=== PATIENT | female | born 1960 | race Caucasian/White ===

== ENCOUNTER 2016-09-29 19:10 | Emergency (ER) | payer BC ==
[2016-09-29 19:29] VITALS: BP 153/75; PULSE 84; TEMP 97.9; BMI 33.3
[2016-09-29] MEDS ORDERED: INDOMETHACIN 50 MG CAPSULE PO ONE (20:56)
[2016-09-29] MEDS ORDERED: ALLOPURINOL 300 MG TABLET (FP) PO ONE (20:57)
--- NOTE | 2016-09-29 20:57 | PDOC ---
History of Present Illness - History of Present Illness Initial Comments: 09/29/16 21:31 Patient is a 56 year old female with significant medical hx of gout who is presenting to the ED for gout pain. Patient is complaining of severe pain to her right ankle and is requesting pain relief. She does not offer any other complaints. Denies lower extremity swelling. 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 <Chloe Nguyen - Last Filed: 09/29/16 21:30> <Cindy Tyson - Last Filed: 09/30/16 00:40> - General Chief Complaint: Pain Stated Complaint: GOUT PAIN Time Seen by Provider: 09/29/16 20:25 Past History <Chloe Nguyen - Last Filed: 09/29/16 21:30> - Past Medical History Cardiac Disorders: Yes (AAA repair, Aorti valve replacement) HTN: Yes - Surgical History Abdominal Surgery: Yes Cardiac Surgery: Yes (ANEURYSM REPAIR, VALVE REPLACEMENT) - Immunization History Immunization Up to Date: Yes - Psycho/Social/Smoking Cessation Hx Anxiety: No Suicidal Ideation: No Smoking Status: No Smoking History: Never smoked Have you smoked in the past 12 months: No Number of Cigarettes Smoked Daily: 0 Cigars Per Day: 0 Hx Alcohol Use: No Drug/Substance Use Hx: No Substance Use Type: None Hx Substance Use Treatment: No <Cindy Tyson - Last Filed: 09/30/16 00:40> - Past Medical History Allergies/Adverse Reactions: Allergies Allergy/AdvReac Type Severity Reaction Status Date / Time No Known Allergies Allergy Verified 09/29/16 19:29 Home Medications: Ambulatory Orders Warfarin Sodium [Coumadin] 4 mg PO HS 03/02/16 Allopurinol [Zyloprim -] 200 mg PO DAILY #60 tablet 09/29/16 Review of Systems - Review of Systems Comments:: 09/29/16 21:33 CONSTITUTIONAL: Absent: fever, chills, diaphoresis, generalized weakness, malaise, loss of appetite HEENT: Absent: rhinorrhea, nasal congestion, throat pain, throat swelling, difficulty swallowing, mouth swelling, ear pain, eye pain, visual changes CARDIOVASCULAR: Absent: chest pain, syncope, palpitations, irregular heart rate, lightheadedness , peripheral edema RESPIRATORY: Absent: cough, shortness of breath, dyspnea with exertion, orthopnea, wheezing, stridor, hemoptysis GASTROINTESTINAL: Absent: abdominal pain, abdominal distension, nausea, vomiting, diarrhea, constipation, melena, hematochezia GENITOURINARY: Absent: dysuria, frequency, urgency, hesitancy, hematuria, flank pain, genital pain MUSCULOSKELETAL: Present: right ankle pain Absent: myalgia, arthralgia, joint swelling SKIN: Absent: rash, itching, pallor HEMATOLOGIC/IMMUNOLOGIC: Absent: easy bleeding, easy bruising, lymphadenopathy, frequent infections ENDOCRINE: Absent: unexplained weight gain, unexplained weight loss, heat intolerance, cold intolerance NEUROLOGIC: Absent: headache, focal weakness or paresthesia, dizziness, unsteady gait, seizure, mental status changes, bladder or bowel incontinence. PSYCHIATRIC: Absent: anxiety, depression, suicidal or homicidal ideation, hallucinations <Chloe Nguyen - Last Filed: 09/29/16 21:30> *Physical Exam - Vital Signs Last Vital Signs Temp Pulse Resp BP Pulse Ox 97.9 F 84 18 153/75 99 09/29/16 19:26 09/29/16 19:26 09/29/16 19:26 09/29/16 19:26 09/29/16 19:26 - Physical Exam Comments: 09/29/16 21:34 GENERAL: Well developed, well nourished. Awake and alert. No acute distress. HEENT: Normocephalic, atraumatic. PERRLA, EOMI. No conjunctival pallor. Sclera are non- icteric. Moist mucous membranes. Oropharynx is clear. NECK: Supple. Full ROM. No JVD. Carotid pulses 2+ and symmetric, without bruits. No thyromegaly. No lymphadenopathy. CARDIOVASCULAR: Mechanical valve click. Regular rate and rhythm. No murmurs, rubs, or gallops. Distal pulses are 2+ and symmetric. PULMONARY: No evidence of respiratory distress. Lungs clear to auscultation bilaterally. No wheezing, rales or rhonchi. ABDOMINAL: Soft. Non-tender. Non-distended. No rebound or guarding. No organomegaly. Normoactive bowel sounds. MUSCULOSKELETAL: Normal range of motion at all joints. No bony deformities or tenderness. No CVA tenderness. EXTREMITIES: No cyanosis. No clubbing. No edema. No calf tenderness. SKIN: Warm and dry. Normal capillary refill. No rashes. No jaundice. NEUROLOGICAL: Alert, awake, appropriate. Cranial nerves 2-12 intact. Normal speech. Gait is normal without ataxia. PSYCHIATRIC: Cooperative. Good eye contact. Appropriate mood and affect. <Chloe Nguyen - Last Filed: 09/29/16 21:30> - Vital Signs Last Vital Signs Temp Pulse Resp BP Pulse Ox 97.9 F 84 18 153/75 99 09/29/16 19:26 09/29/16 19:26 09/29/16 19:26 09/29/16 19:26 09/29/16 19:26 <Cindy Tyson - Last Filed: 09/30/16 00:40> ED Treatment Course - Medications Given in the ED: ED Medications Discontinued Medications Generic Name Dose Route Start Last Admin Trade Name Mehranq PRN Reason Stop Dose Admin Allopurinol 300 mg 09/29/16 20:57 09/29/16 21:11 Zyloprim - PO 09/29/16 20:58 300 mg ONCE ONE Administration Indomethacin 50 mg 09/29/16 20:56 09/29/16 21:02 Indocin - PO 09/29/16 20:57 Not Given ONCE ONE Oxycodone/Acetaminophen 2 combo 09/29/16 20:59 09/29/16 21:11 Percocet 5/325 - PO 09/29/16 21:00 2 combo ONCE ONE Administration <Chloe Nguyen - Last Filed: 09/29/16 21:30> Medical Decision Making - Medical Decision Making 09/30/16 00:39 Pt comes with murraysandro; 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 SHe is on coumadin for a mechanical heart valve, and cannot be sent home with indocin. I will teat her with percocet here and tylenol and allopurinol at home. SHe can follow with her pMD <Cindy Tyson - Last Filed: 09/30/16 00:40> *DC/Admit/Observation/Transfer - Attestations Scribe Attestion: 09/29/16 21:36 Documentation prepared by Chloe Nguyen, acting as medical staff specialist for Cindy Tyson MD. <Chloe Nguyen - Last Filed: 09/29/16 21:30> <Cindy Tyson - Last Filed: 09/30/16 00:40> Diagnosis at time of Disposition: Gout - Discharge Dispostion Disposition: HOME Condition at time of disposition: Stable - Prescriptions Prescriptions: Allopurinol [Zyloprim -] 200 mg PO DAILY #60 tablet - Referrals Referrals: Jaqueline Powell [Primary Care Provider] - - Patient Instructions Printed Discharge Instructions: Gout - Post Discharge Activity Work/School Note: Back to Work
[2016-09-29] MEDS ORDERED: OXYCODONE/APAP 5/325MG COMBO TABLET PO ONE (20:59)
[2016-09-29] MEDS ORDERED: ALLOPURINOL 100 MG TABLET (FP) ONE (21:03)
[2016-09-29] MEDS ORDERED: OXYCODONE/APAP 5/325MG COMBO TABLET ONE (21:03)
== END 2016-09-29 21:32 | disposition home or self-care (01) ==
LOC: JER 19:10
DX: M10.9 Gout, unspecified (principal); I10 Essential (primary) hypertension; Z95.4 Presence of other heart-valve replacement; Z79.01 Long term (current) use of anticoagulants
CPT/HCPCS: 99282-25

== ENCOUNTER 2016-12-30 09:30 | Inpatient (IN) | payer BC ==
[2016-12-30 09:36] VITALS: BMI 34.3
[2016-12-30] MEDS ORDERED: morphine CARPU-JECT 4 MG/1 ML DISP.SYRIN IVPUSH ONE ×2 (09:59→15:57)
[2016-12-30] MEDS ORDERED: SODIUM CHLORIDE 1,000 ML IV STA (09:59)
[2016-12-30] MEDS ORDERED: ONDANSETRON 4 MG/2 ML VIAL IVPB ONE (09:59)
--- NOTE | 2016-12-30 09:59 | PDOC ---
History of Present Illness - General History Source: Patient Exam Limitations: No Limitations - History of Present Illness Initial Comments: 12/30/16 10:01 The patient is a 56 year old female with a significant past medical history of gout, thoracic aneurysm repair, aortic valve replacement who presents to the Emergency Department with RUQ pain since last night. She reports associated episodes of vomiting and diarrhea. She also reports the pain radiates to her back and right shoulder. She states the pain was intermittent initially, but now reports constant pain. She reports the pain is worse post-prandially. She also reports an episode of hematuria a few days ago. She denies sick contacts. She denies recent travel. She denies alcohol, tobacco, or drug use. The patient denies chest pain, shortness of breath, palpitations, headache and dizziness. The patient denies fever, chills, and constipation. The patient denies dysuria, frequency, urgency. PCP: Dr. Jaqueline Powell Curer Acid Drum: Dr. Yara Garner <Regina Nathan - Last Filed: 12/30/16 12:24> - General History Source: Patient, Old Records Exam Limitations: No Limitations <Monster Kemp - Last Filed: 12/30/16 14:35> - General Chief Complaint: Pain Stated Complaint: ABD PAIN, SHOULDER PAIN Time Seen by Provider: 12/30/16 09:38 Past History <Regina Nathan - Last Filed: 12/30/16 12:24> - Past Medical History Cardiac Disorders: Yes (AAA repair, Aorti valve replacement) HTN: Yes - Surgical History Abdominal Surgery: Yes Cardiac Surgery: Yes (ANEURYSM REPAIR, VALVE REPLACEMENT) - Immunization History Immunization Up to Date: Yes - Psycho/Social/Smoking Cessation Hx Anxiety: No Suicidal Ideation: No Smoking Status: No Smoking History: Never smoked Have you smoked in the past 12 months: No Number of Cigarettes Smoked Daily: 0 Cigars Per Day: 0 Information on smoking cessation initiated: No Hx Alcohol Use: No Drug/Substance Use Hx: No Substance Use Type: None Hx Substance Use Treatment: No <Monster Kemp - Last Filed: 12/30/16 14:35> - Past Medical History Allergies/Adverse Reactions: Allergies Allergy/AdvReac Type Severity Reaction Status Date / Time No Known Allergies Allergy Verified 12/30/16 09:36 Home Medications: Ambulatory Orders Warfarin Sodium [Coumadin] 4 mg PO HS 03/02/16 Famotidine [Pepcid] 20 mg PO BID PRN #14 tablet 12/30/16 Mag Hydrox/Al Hydrox/Simeth [Mylanta Suspension -] 30 ml PO Q6H PRN #1 bottle Review of Systems - Review of Systems Able to Perform ROS?: Yes Comments:: 12/30/16 10:01 GENERAL/CONSTITUTIONAL: No fever or chills. No weakness. HEAD, EYES, EARS, NOSE AND THROAT: No change in vision. No ear pain or discharge. No sore throat. CARDIOVASCULAR: No chest pain or shortness of breath. RESPIRATORY: No cough, wheezing, or hemoptysis. GASTROINTESTINAL: (+) RUQ pain, nausea, vomiting, diarrhea. No constipation GENITOURINARY: (+) hematuria. No dysuria, frequency. MUSCULOSKELETAL: (+) back pain, right shoulder pain. No muscle swelling or pain. No neck pain. SKIN: No rash NEUROLOGIC: No headache, vertigo, loss of consciousness, or change in strength/ sensation. ENDOCRINE: No increased thirst. No abnormal weight change. HEMATOLOGIC/LYMPHATIC: No anemia, easy bleeding, or history of blood clots. ALLERGIC/IMMUNOLOGIC: No hives or skin allergy. <Regina Nathan - Last Filed: 12/30/16 12:24> *Physical Exam - Vital Signs Last Vital Signs Temp Pulse Resp BP Pulse Ox 98.1 F 87 18 157/83 98 12/30/16 09:33 12/30/16 09:33 12/30/16 09:33 12/30/16 09:33 12/30/16 09:33 - Physical Exam Comments: 12/30/16 10:01 GENERAL: Awake, alert, and fully oriented, in no acute distress HEAD: No signs of trauma EYES: PERRLA, EOMI, sclera anicteric, conjunctiva clear ENT: Auricles normal inspection, hearing grossly normal, nares patent, oropharynx clear without exudates. Moist mucosa NECK: Normal ROM, supple, no lymphadenopathy, JVD, or masses LUNGS: Breath sounds equal, clear to auscultation bilaterally. No wheezes, and no crackles HEART: Regular rate and rhythm, normal S1 and S2, no murmurs, rubs or gallops ABDOMEN: Right CVA tenderness, RUQ tenderness, Meridian sign positive. Soft, nontender, normoactive bowel sounds. No guarding, no rebound. No masses EXTREMITIES: Normal range of motion, no edema. No clubbing or cyanosis. No cords, erythema, or tenderness NEUROLOGICAL: Cranial nerves II through XII grossly intact. Normal speech, normal gait SKIN: Warm, Dry, normal turgor, no rashes or lesions noted. <Regina Nathan - Last Filed: 12/30/16 12:24> - Vital Signs Last Vital Signs Temp Pulse Resp BP Pulse Ox 98.1 F 87 18 157/83 98 12/30/16 09:33 12/30/16 09:33 12/30/16 09:33 12/30/16 09:33 12/30/16 09:33 <Monster Kemp - Last Filed: 12/30/16 14:35> Heart Score/ECG Review #1 ECG reviewed & interpreted by me at: 12:35 12/30/16 12:43 NSR 74, LAFB, Q wave V1-V2, no std/enid, left axis, QTC 479 msec <Monster Kemp - Last Filed: 12/30/16 14:35> ED Treatment Course - LABORATORY CBC & Chemistry Diagram: 12/30/16 10:30 12/30/16 10:30 - RADIOLOGY Radiograph Interpretation: 12/30/16 11:41 Abdominal US: Reported by: Dr. Yaya Wyman Impression: Mildly enlarged fatty liver 12/30/16 12:[address]: Reported by: Dr. Todd Negron Impression: No specific etiology for right flank pain identified. There is a fatty liver with pericholecystic sparing. The appendix is not seen, but there are no inflammatory changes in the right lower quadrant. Clinical correlation is advised. <Regina Nathan - Last Filed: 12/30/16 12:24> - LABORATORY CBC & Chemistry Diagram: 12/30/16 10:30 12/30/16 10:30 - RADIOLOGY Radiology Studies Ordered: Category Date Time Status SPIRAL- RENAL-STONE CT [CT] Stat CT Scan 12/30/16 09:46 Ordered ABDOMEN US -LIMITED [US] Stat Ultrasound 12/30/16 09:46 Ordered <Monster Kemp - Last Filed: 12/30/16 14:35> Medical Decision Making - Medical Decision Making 12/30/16 09:52 A portion of this note was documented by scribe services under my direction. I have reviewed the details of the note, within reason, and agree with the documentation with the following case summary and management plan written by me. Patient treated in the ED. Nursing notes are reviewed and incorporated into the medical decision-making. Vital signs reviewed. Peripheral IV access obtained by the nurse, laboratory studies are drawn and sent, reviewed and interpreted by myself. Vital Signs Temp Pulse Resp BP Pulse Ox 98.1 F 87 18 157/83 98 12/30/16 09:33 12/30/16 09:33 12/30/16 09:33 12/30/16 09:33 12/30/16 09:33 56-year-old female with past medical history of thoracic aneurysm status post surgery and graft, Aortic valve replacement metallic on Coumadin presents with abdominal pain radiating to the right shoulder since yesterday. Reported is intermittent, heart to describe and now constant. Reports that eating worsens the pain. Patient reports right CVA tenderness and right upper quadrant pain. Has no history of gallstones. Reported one episode of vomiting today. Denies fevers, sick contacts or recent travels. Endorse some loose stooling. Differential includes biliary pathology, gastroenteritis, pancreatitis, polynephritis, renal colic. We'll obtain blood work including labs, ultrasound, spiral CT and reassess. 12/30/16 13:05 CBC, BMP 12/30/16 10:30 12/30/16 10:30 CMP Sodium 141 mmol/L (136-145) 12/30/16 10:30 Potassium 4.4 mmol/L (3.5-5.1) 12/30/16 10:30 Chloride 105 mmol/L (98-107) 12/30/16 10:30 Carbon Dioxide 29 mmol/L (21-32) 12/30/16 10:30 Anion Gap 7 (8-16) L 12/30/16 10:30 BUN 14 mg/dL (7-18) D 12/30/16 10:30 Creatinine 0.8 mg/dL (0.55-1.02) 12/30/16 10:30 Creat Clearance w eGFR > 60 (>60) 12/30/16 10:30 Random Glucose 86 mg/dL (74-106) 12/30/16 10:30 Calcium 9.0 mg/dL (8.5-10.1) 12/30/16 10:30 Total Bilirubin 0.8 mg/dL (0.2-1.0) 12/30/16 10:30 AST 18 U/L (15-37) D 12/30/16 10:30 ALT 44 U/L (12-78) 12/30/16 10:30 Alkaline Phosphatase 81 U/L (45-117) 12/30/16 10:30 Creatine Kinase 78 IU/L (26-192) 12/30/16 10:30 Troponin I < 0.02 ng/ml (0.00-0.05) 12/30/16 10:30 Total Protein 6.9 g/dl (6.4-8.2) 12/30/16 10:30 Albumin 3.6 g/dl (3.4-5.0) 12/30/16 10:30 Lipase 128 U/L (73-393) 12/30/16 10:30 Urine Test Results Urine Color Ltyellow 12/30/16 12:14 Urine Appearance Clear 12/30/16 12:14 Urine pH 5.0 (5.0-8.0) 12/30/16 12:14 Ur Specific [place] 1.012 (1.001-1.035) 12/30/16 12:14 Urine Protein Negative (NEGATIVE) 12/30/16 12:14 Urine Glucose (UA) Negative (NEGATIVE) 12/30/16 12:14 Urine Ketones Negative (NEGATIVE) 12/30/16 12:14 Urine Blood Negative (NEGATIVE) 12/30/16 12:14 Urine Nitrite Negative (NEGATIVE) 12/30/16 12:14 Urine Bilirubin Negative (NEGATIVE) 12/30/16 12:14 Ur Leukocyte Esterase Negative (NEGATIVE) 12/30/16 12:14 CAT scan the abdomen pelvis reviewed. There are no acute findings Ultrasound reviewed. No acute cholecystitis or biliary colic. Patient reports that she had similar pains like this before in the past. However , she has no known etiology at this time. Patient supposed to follow up with the GI doctor but has not been able to get. We'll treat his gastritis at the moment. The patient is noted to have an INR 1.77. Pt's is analyst was contacted Dr. Garner. Pt started on lovenox and will be admitted to the hospital. According to Dr. Garner, there appears to be an abnormal echo. Will need further investigation inpatient. 12/30/16 14:[address] Hogue. He accepts patient to telemetry admission. Case discussed in detail with admitting physician including history, physical exam and ancillary studies. Admitting physician has assumed care for the patient, will follow all pending diagnostics and will complete the evaluation and treatment. 12/30/16 14:35 <Monster Kemp - Last Filed: 12/30/16 14:35> *DC/Admit/Observation/Transfer - Attestations Scribe Attestion: 12/30/16 10:01 Documentation prepared by Regina Nathan, acting as medical registrar for Monster Kemp MD. <Regina Nathan - Last Filed: 12/30/16 12:24> - Discharge Dispostion Admit: No <Monster Kemp - Last Filed: 12/30/16 14:35> Diagnosis at time of Disposition: Subtherapeutic international normalized ratio (INR) Abdominal pain Qualifiers: Abdominal location: unspecified location Qualified Code(s): R10.9 - Unspecified abdominal pain - Discharge Dispostion Condition at time of disposition: Stable - Prescriptions Prescriptions: Mag Hydrox/Al Hydrox/Simeth [Mylanta Suspension -] 30 ml PO Q6H PRN #1 bottle PRN Reason: Abdominal Pain Famotidine [Pepcid] 20 mg PO BID PRN #14 tablet PRN Reason: Abdominal Pain - Referrals Referrals: Ronnell Horton MD [Staff Physician] - Alena Back MD [Staff Physician] - Lloyd Funk DO [Staff Physician] - Florentino He MD [Staff Physician] - - Patient Instructions Printed Discharge Instructions: DI for Abdominal Pain-Adult, DI for Gastritis Additional Instructions: Please take 30 mL of Maalox every 6 hours needed for abdominal pain. Please take 29 as a pest every 12 hours as needed. For your INR, please take some 7.5 mg of Coumadin tonight and call your doctor for potential changes in your dosing. Please make an appointment with a GI physician.
[2016-12-30 10:42] LABS: BASOPHIL 1.1 % (0-2.0); EOSINOPHIL 1.4 % (0-4.5); MCH 27.9 pg (25.7-33.7); MCHC 33.5 g/dl (32.0-36.0); MEAN CELL VOLUME 83.2 fl (80-96); MEAN PLT VOLUME 7.9 fl (7.5-11.1); NEUTROPHILS 69.3 % (42.8-82.8); PLATELET COUNT 328 K/MM3 (134-434); WHITE BLOOD COUNT 8.2 K/mm3 (4.0-10.0)
[2016-12-30 10:56] LABS: INR 1.77 (0.82-1.09); PROTHROMBIN TIME (PATIENT) 19.7 SEC (9.98-11.88)
[2016-12-30 10:59] LABS: ACTIVATED PTT 45.2 SECONDS (26.9-34.4)
[2016-12-30 11:03] LABS: ALBUMIN 3.6 g/dl (3.4-5.0); ANION GAP 7 (8-16); CO2 29 mmol/L (21-32); COCKROFT - GAULT 113.7895; CREATININE 0.8 mg/dL (0.55-1.02); GLUCOSE,RANDOM 86 mg/dL (74-106); SGOT/AST 18 U/L (15-37); SGPT/ALT 44 U/L (12-78)
[2016-12-30 11:07] LABS: ALK PHOS 81 U/L (45-117); BILIRUBIN,TOTAL 0.8 mg/dL (0.2-1.0); TOT PROT 6.9 g/dl (6.4-8.2); TROPONIN I < 0.02 ng/ml (0.00-0.05)
[2016-12-30] MEDS ORDERED: morphine CARPU-JECT 4 MG/1 ML DISP.SYRIN ONE ×2 (11:51→16:16)
[2016-12-30] MEDS ORDERED: ONDANSETRON 4 MG/2 ML VIAL ONE (11:52)
[2016-12-30 12:35] LABS: URINE APPEARANCE CLEAR; URINE BILIRUBIN NEGATIVE (NEGATIVE); URINE BLOOD NEGATIVE (NEGATIVE); URINE COLOR LTYELLOW; URINE GLUCOSE (UA) NEGATIVE (NEGATIVE); URINE KETONE NEGATIVE (NEGATIVE); URINE LEUK ESTERASE NEGATIVE (NEGATIVE); URINE NITRITE NEGATIVE (NEGATIVE); URINE PROTEIN NEGATIVE (NEGATIVE); URINE UROBILINOGEN NEGATIVE E.U./dl (0.2-1.0)
[2016-12-30] MEDS ORDERED: MAG HYDROX/AL HYDROX/SIMETH 30 ML UNIT-DOSE CUP PO ONE (12:36)
[2016-12-30] MEDS ORDERED: FAMOTIDINE 20 MG/50 ML IVPB 50 ML IVPB ONE ×2 (12:36→12:52)
[2016-12-30] MEDS ORDERED: MAG HYDROX/AL HYDROX/SIMETH 30 ML UNIT-DOSE CUP ONE (12:51)
[2016-12-30] MEDS ORDERED: ENOXAPARIN NA (PORCINE) 80 MG/0.8 ML DISP.SYRIN SQ SCH (14:15)
[2016-12-30] MEDS ORDERED: ENOXAPARIN NA (PORCINE) 80 MG/0.8 ML DISP.SYRIN SQ ONE (14:20)
--- NOTE | 2016-12-30 15:03 | EKG ---
Test Reason : Blood Pressure : / mmHG Vent. Rate : 074 BPM Atrial Rate : 074 BPM P-R Int : 170 ms QRS Dur : 090 ms QT Int : 432 ms P-R-T Axes : 005 -47 002 degrees QTc Int : 479 ms NORMAL SINUS RHYTHM LEFT ANTERIOR FASCICULAR BLOCK SEPTAL INFARCT (CITED ON OR BEFORE 30-DEC-2016) ABNORMAL ECG WHEN COMPARED WITH ECG OF 21-OCT-2014 08:43, NO SIGNIFICANT CHANGE WAS FOUND Confirmed by RIMMA GARBER MD ([id number]) on 12/30/2016 3:03:19 PM Referred By: Confirmed By:RIMMA GARBER MD
[2016-12-30] MEDS ORDERED: ACETAMINOPHEN 325 MG TABLET (FP) PO PRN (17:38)
[2016-12-30] MEDS ORDERED: ONDANSETRON *ODT* 4 MG TABLET SL PRN (17:38)
--- NOTE | 2016-12-30 19:04 | CON.CARD ---
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 Echo showed aortic regurgitation and had plan to schedule [facility] for further evaluation. Also had been complaining of chest discomfort and palpitations with plan for event monitor and coronary/aortic CTA at [facility] [place]. Now with separate severe abdominal discomfort x 1 day, constant but intermittently worse. radiates to back. . + nausea, ? diarrhea. palps chronic intermittent. le edema stable, improved. no recent cp, sob, orthopnea, pnd, bleeding, transient neurologic symptoms. PMhx/PSHx: per hpi family hx: mother with AVR repair and aneurysm. from fatal [place]/sc[place] 60's social hx: never smoker, no etoh or illicits. Ambulatory Orders Warfarin Sodium [Coumadin] 4 mg PO HS 03/02/16 Famotidine [Pepcid] 20 mg PO BID PRN #14 tablet 12/30/16 Mag Hydrox/Al Hydrox/Simeth [Mylanta Suspension -] 30 ml PO Q6H PRN #1 bottle Current Medications Acetaminophen (Tylenol -) 650 mg PO Q6H PRN PRN Reason: FEVER OR PAIN Morphine Sulfate (Morphine Injection -) 4 mg IVPUSH Q6H PRN PRN Reason: PAIN Ondansetron HCl (Zofran Odt -) 4 mg SL Q6H PRN PRN Reason: NAUSEA AND/OR VOMITING Ranitidine HCl (Zantac -) 150 mg PO DAILY [facility] Vital Signs - 24 hr 12/30/16 12/30/16 12/30/16 09:33 14:45 17:36 Temperature 98.1 F 97.7 F 98.1 F Pulse Rate 87 86 Pulse Rate [ 65 Apical] Respiratory 18 18 18 Rate Blood Pressure 157/83 119/87 Blood Pressure 158/74 [Left Arm] O2 Sat by Pulse 98 99 98 Oximetry (%) 12/30/16 12/30/16 17:53 18:39 Temperature Pulse Rate Pulse Rate [ 85 Apical] Respiratory 18 18 Rate Blood Pressure Blood Pressure 150/78 [Left Arm] O2 Sat by Pulse 99 98 Oximetry (%) Intake & Output 04/15/17 04/16/17 04/17/17 04/18/17 07:59 07:59 07:59 07:59 Weight 200 lb NAD, calm JVD flat, neck supple CTAB, nl effort rrr nl s1, s2 2/6 sys murmur at usb with mechanical s2 + bs soft nt + tenderness at upper abdomen ext without e/c/c + dp/pt aaox3 CBC, BMP 12/30/16 10:30 12/30/16 10:30 Laboratory Tests 12/30/16 12/30/16 10:30 10:30 INR 1.77 H D Total Bilirubin 0.8 AST 18 D ALT 44 Alkaline Phosphatase 81 Creatine Kinase 78 Troponin I < 0.02 Albumin 3.6 EKG: sr, lad, anterior q waves. non-specific t wave flattining tele: Sr Abdominal imaging notable for mildly enlarged fatty liver. u/s noted visualized abdominal aorta wnl. 56 yo with h/o mechanical Aortic valve replacement for BAV (AR and ), ascending aneurysm repair and possible ASD repair 2001 p/w abdominal pain and noted to have subtherapeutic INR AVR - subtherapeutic INR. lovenox bridge to therapeutic coumadin. - Had plan for [facility] to further evaluate new aortic regurgitation. Will plan for [facility] with bubble study on Friday if still here. Otherwise will do Friday as outpatient. Palps - telemetry monitoring while here. HTN - no history of htn - if remains elevated, will consider starting chlorthalidone - pain control per pmd abdominal sx's - atypical for cardiac symptoms. LFT's not consistent with hepatic congestion. Further work up per pmd.
[2016-12-30] MEDS ORDERED: ONDANSETRON 4 MG TABLET PO PRN (21:16)
[2016-12-30] MEDS: ENOXAPARIN NA (PORCINE) 80 MG/0.8 ML DISP.SYRIN SQ SCH (22:10)
[2016-12-30] MEDS: WARFARIN NA 2 MG TABLET (UD) PO SCH (22:10)
[2016-12-30] MEDS: morphine CARPU-JECT 4 MG/1 ML DISP.SYRIN IVPUSH PRN (22:11)
--- NOTE | 2016-12-30 23:32 | HP ---
Admitting History and Physical - Primary Care Physician PCP: Scott Hogue - Admission Chief Complaint: CHEST PAIN/WORSENING CARDIAC MURMUR/RUQ PAIN History of Present Illness: The patient is a 56 year old female with a significant past medical history of gout, thoracic aneurysm repair, aortic valve replacement who presents to the Emergency Department with RUQ pain since last night. She reports associated episodes of vomiting and diarrhea. She also reports the pain radiates to her back and right shoulder. She states the pain was intermittent initially, but now reports constant pain. She reports the pain is worse post-prandially. She also reports an episode of hematuria a few days ago. She denies sick contacts. She denies recent travel. She denies alcohol, tobacco, or drug use. The patient denies chest pain, shortness of breath, palpitations, headache and dizziness. The patient denies fever, chills, and constipation. The patient denies dysuria, frequency, urgency. History Source: Patient - Past Medical History Cardiovascular: Yes: Aneurysm, HTN, Other (Bicuspid AV s/p Mechanical AVR and aortic aneursym repair 2001 [facility]). No: AFIB, Aortic Insufficiency, Aortic Stenosis, CAD, CHF, Deep Vein Thrombosis, Hyperlipdemia, ME, Mitral Insufficiency, Mitral Stenosis, Murmur, Pulmonary Hypertension ...LMP: 11/14/03 - Past Surgical History Past Surgical History: Yes: Valve Replacement. No: None, AAA Repair, AICD, Amputation, Appendectomy, Arthrosocopy, AV Fistula/Graft, Bariatric Surgery, Breast Biopsy, Bypass, CABG, Carotid Endarterectomy, Cataract Removal, Cholecystectomy, Colectomy, Colonoscopy, Colostomy, Craniotomy, , Cystectomy, Hernia Repair, Hysterectomy, Ileal Conduit, Ileosotomy, Joint Replacement, Kidney Transplant, Laminectomy, Liver Transplant, Mastectomy, Nephrectomy, Oopherectomy, Orchiectomy, Permanent Pacemaker, Prostatectomy, Splenectomy, Stent, Thoracotomy, TURP, Tonsillectomy, Tubal Ligation, Upper Endoscopy, Vasectomy, Vein Stripping/Ligation - Smoking History Smoking history: Never smoked Have you smoked in the past 12 months: No Aproximately how many cigarettes per day: 0 - Alcohol/Substance Use Hx Alcohol Use: No - Social History ADL: Independent History of Recent Travel: No Home Medications - Allergies Allergies/Adverse Reactions: Allergies Allergy/AdvReac Type Severity Reaction Status Date / Time No Known Allergies Allergy Verified 12/30/16 09:36 - Home Medications Home Medications: Ambulatory Orders Warfarin Sodium [Coumadin] 4 mg PO HS 03/02/16 Famotidine [Pepcid] 20 mg PO BID PRN #14 tablet 12/30/16 Mag Hydrox/Al Hydrox/Simeth [Mylanta Suspension -] 30 ml PO Q6H PRN #1 bottle Family Disease History - Family Disease History Family Disease History: Other: Mother (ascending aortic aneurysm) Review of Systems - Review of Systems Constitutional: reports: Weakness Eyes: reports: No Symptoms HENT: reports: No Symptoms Neck: reports: No Symptoms Cardiovascular: reports: Chest Pain, Palpitations, Shortness of Breath Respiratory: reports: No Symptoms Gastrointestinal: reports: Abdominal Pain Genitourinary: reports: No Symptoms Musculoskeletal: reports: No Symptoms Integumentary: reports: No Symptoms Neurological: reports: No Symptoms Endocrine: reports: No Symptoms Hematology/Lymphatic: reports: No Symptoms Psychiatric: reports: No Symptoms Physical Examination Vital Signs: Vital Signs Temperature 98.1 F 12/30/16 17:36 Pulse Rate 85 12/30/16 17:53 Respiratory Rate 18 12/30/16 18:39 Blood Pressure 150/78 12/30/16 17:53 O2 Sat by Pulse Oximetry (%) 98 12/30/16 18:39 Constitutional: Yes: Mild Distress Eyes: Yes: WNL HENT: Yes: WNL Neck: Yes: WNL Cardiovascular: Yes: Pulse Irregular, Murmur Respiratory: Yes: WNL Gastrointestinal: Yes: Tenderness, Other Renal/: Yes: WNL Musculoskeletal: Yes: Muscle Weakness Extremities: Yes: WNL Edema: No Peripheral Pulses WNL: Yes Integumentary: Yes: WNL Wound/Incision: Yes: Clean/Dry Neurological: Yes: WNL ...Motor Strength: WNL Psychiatric: Yes: WNL Problem List - Problems (1) Abdominal pain Code(s): R10.9 - UNSPECIFIED ABDOMINAL PAIN Qualifiers: Abdominal location: unspecified location Qualified Code(s): R10.9 - Unspecified abdominal pain (2) Subtherapeutic international normalized ratio (INR) Code(s): R79.1 - ABNORMAL COAGULATION PROFILE (3) Chest pain Code(s): R07.9 - CHEST PAIN, UNSPECIFIED (4) Cardiac murmur, unspecified Code(s): R01.1 - CARDIAC MURMUR, UNSPECIFIED Assessment/Plan CARDIOLOGY INTERVENTION WITH CITLALY WILL NEED LOVENOX FOR SUBTHERAPEUTIC INR RUQ PAIN WILL NEED GI EVAL JANETTE VU ORDERED CT ABD AND SONO SHOWS FATTY LIVER TELEMETRY MONITORING
[2016-12-31 08:06] LABS: INR 2.16 (0.82-1.09); PROTHROMBIN TIME (PATIENT) 24.1 SEC (9.98-11.88)
[2016-12-31] MEDS ORDERED: RANITIDINE HCL 150 MG TABLET (FP) PO SCH (10:00)
[2016-12-31] MEDS: ENOXAPARIN NA (PORCINE) 80 MG/0.8 ML DISP.SYRIN SQ SCH ×2 (10:15→21:50)
[2016-12-31] MEDS: morphine CARPU-JECT 4 MG/1 ML DISP.SYRIN IVPUSH PRN ×2 (10:24→21:50)
--- NOTE | 2016-12-31 12:36 | PN ---
Progress Note (short form) - Note Progress Note: CC: Abdominal pain S: abdominal pain persists. no cp, sob, dizziness. mild palpitations. Current Medications Acetaminophen (Tylenol -) 650 mg PO Q6H PRN PRN Reason: FEVER OR PAIN Morphine Sulfate (Morphine Injection -) 4 mg IVPUSH Q6H PRN PRN Reason: PAIN Last Admin: 12/31/16 10:24 Dose: 4 mg Ondansetron HCl (Zofran -) 4 mg PO Q6H PRN PRN Reason: NAUSEA AND/OR VOMITING Ranitidine HCl (Zantac -) 150 mg PO DAILY [facility] Last Admin: 12/31/16 10:15 Dose: 150 mg Warfarin Sodium (Coumadin -) 4 mg PO DAILY@1800 [facility] Last Admin: 12/30/16 22:10 Dose: 4 mg lovenox 80 mg BID Vital Signs - 24 hr 12/30/16 12/30/16 12/30/16 14:45 17:36 17:53 Temperature 97.7 F 98.1 F Pulse Rate 86 Pulse Rate [ 65 85 Apical] Respiratory 18 18 18 Rate Blood Pressure 119/87 Blood Pressure 158/74 150/78 [Left Arm] O2 Sat by Pulse 99 98 99 Oximetry (%) 12/30/16 12/30/16 12/31/16 18:39 21:00 02:00 Temperature 97.7 F Pulse Rate 79 Pulse Rate [ Apical] Respiratory 18 18 Rate Blood Pressure 102/62 Blood Pressure [Left Arm] O2 Sat by Pulse 98 96 Oximetry (%) 12/31/16 06:00 Temperature Pulse Rate 66 Pulse Rate [ Apical] Respiratory 20 Rate Blood Pressure 111/61 Blood Pressure [Left Arm] O2 Sat by Pulse Oximetry (%) Intake & Output 12/29/16 12/30/16 12/31/16 01/01/17 07:59 07:59 07:59 07:59 Weight 200 lb NAD, calm JVD flat, neck supple CTAB, nl effort rrr nl s1, s2 2/6 sys murmur at usb with mechanical s2 + bs soft nt + tenderness at upper abdomen ext without e/c/c + dp/pt aaox3 CBC, BMP 12/30/16 10:30 12/30/16 10:30 Laboratory Tests 12/31/16 12/31/16 05:35 05:35 INR 2.16 H C-Reactive Protein 1.9 H EKG: sr, lad, anterior q waves. non-specific t wave flattening tele: Sr, occasional sinus tach Abdominal imaging notable for mildly enlarged fatty liver. u/s noted visualized abdominal aorta wnl. 56 yo with h/o mechanical Aortic valve replacement for BAV (AR and ), ascending aneurysm repair and possible ASD repair 2001 p/w abdominal pain and noted to have subtherapeutic INR AVR - subtherapeutic INR. lovenox bridge to therapeutic coumadin. --> Per patient, INR goal 2.5-3.5. con't lovenox. - Had plan for CITLALY to further evaluate new aortic regurgitation with le edema and progressive interiano. Will plan for CITLALY with bubble study tomorrow. Palps - telemetry monitoring while here. so far benign HTN - initially elevated, today improved. - pain control per pmd abdominal sx's - atypical for cardiac symptoms. LFT's not consistent with hepatic congestion. Normal abdominal aorta on u/s. Eval/mgm't per pmd. GI eval pending.
[2016-12-31] MEDS: WARFARIN NA 2 MG TABLET (UD) PO SCH (17:53)
--- NOTE | 2016-12-31 21:14 | CON.GI ---
Consult Consult Specialty:: GASTROENTEROLOGY Referred by:: CARMELINA LAWRENCE MD Reason for Consultation:: R FLANK PAIN, ENLARGED FATTY LIVER - History of Present Illness Chief Complaint: RIGHT FLANK PAIN TO RIGHT SHOULDER AND RUQ PAIN History of Present Illness: 56 YEAR OLD FEMALE WITH HISTORY OF THORACIC ANEURYSM REPAIR IN [address] [facility] VALVE PLACEMENT FOR BICUSPID AORTIC VALVE ADMITTED WITH WHAT SHE STATES IS SEVERE RIGHT FLANK AND RUQ PAIN THAT RADIATED TO THE RIGHT SHOULDER AND THE RIGHT LOWER ABDOMEN. SHE STATES THAT THIS CAN LAST DAYS ON END. IT IS DESCRIBED STABBING AND AT TIMES COLICKY. SHE HAS A HISTORY OF RENAL STONES. A CT SCAN RENAL PROTOCOL WAS NEGATIVE. SONOGRAM REVEALED ENLARGED LIVER WITH FATTY INFILTRATION. HER LFT'S ARE NORMAL. NO HISTORY OF NSAID USE. NO HISTORY OF PUD. 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 No: AFIB, Aortic Insufficiency, Aortic Stenosis, CAD, CHF, Deep Vein Thrombosis, Hyperlipdemia, ME, Mitral Insufficiency, Mitral Stenosis, Murmur, Pulmonary Hypertension Pulmonary: No: Asthma, Bronchitis, Cancer, COPD, O2 Dependent, Pneumonia, Previously Intubated, Pulmonary Embolus, Pulmonary Fibrosis, Sleep Apnea, Other Gastrointestinal: Yes: Other (POSSIBLE GB DISEASE???) Hepatobiliary: No: Cirrhosis, Cholelithiasis, Cholecystitis, Choledocholithiasis , Hepatitis A, Hepatitis B, Hepatitis C, Other Renal/: No: Renal Failure, Renal Inusuff, BPH, Cancer, Hematuria, Hemodialysis , Neurogenic Bladder, Renal Calculi, UTI, Other Reproductive: No: Ectopic , Endometriosis, Fibroids, PID, Polycystic Ovary Syndrome, Postmenopausal, Other ...LMP: 11/14/03 Heme/Onc: No: Anemia, B12 Deficiency, Bleeding Disorder, Cancer, Current Chemotherapy, Current Radiation Therapy, Hemochromatosis, Hypercoaguable State, Myeloproliferative Synd, Sickle Cell Disease, Sickle Cell Trait, Thrombocytopenia, Other Infectious Disease: No: AIDS, C-Diff, Herpes Zoster, HIV, MRSA, STD's, Tuberculosis, VREF, Other Psych: No: Addictions, Anxiety, Bipolar, Depression, Panic, Psychosis, Schizophrenia, Other Musculoskeletal: No: Bursitis, Chronic low back pain, Hemiparesis, Hemiplegia, Osteoarthritis, Paraplegia, Other Rheumatology: No: Fibromyalgia, Gout, Lupus, Rheumatoid Arthritis, Sarcoidosis, Vasculitis, Other - Past Surgical History Past Surgical History: Yes: Valve Replacement. No: None, AAA Repair, AICD, Amputation, Appendectomy, Arthrosocopy, AV Fistula/Graft, Bariatric Surgery, Breast Biopsy, Bypass, CABG, Carotid Endarterectomy, Cataract Removal, Cholecystectomy, Colectomy, Colonoscopy, Colostomy, Craniotomy, , Cystectomy, Hernia Repair, Hysterectomy, Ileal Conduit, Ileosotomy, Joint Replacement, Kidney Transplant, Laminectomy, Liver Transplant, Mastectomy, Nephrectomy, Oopherectomy, Orchiectomy, Permanent Pacemaker, Prostatectomy, Splenectomy, Stent, Thoracotomy, TURP, Tonsillectomy, Tubal Ligation, Upper Endoscopy, Vasectomy, Vein Stripping/Ligation - Alcohol/Substance Use Hx Alcohol Use: No - Smoking History Smoking history: Never smoked Have you smoked in the past 12 months: No Aproximately how many cigarettes per day: 0 - Social History ADL: Independent History of Recent Travel: No Home Medications - Allergies Allergies/Adverse Reactions: Allergies Allergy/AdvReac Type Severity Reaction Status Date / Time No Known Allergies Allergy Verified 12/30/16 09:36 - Home Medications Home Medications: Ambulatory Orders Warfarin Sodium [Coumadin] 4 mg PO HS 03/02/16 Famotidine [Pepcid] 20 mg PO BID PRN #14 tablet 12/30/16 Mag Hydrox/Al Hydrox/Simeth [Mylanta Suspension -] 30 ml PO Q6H PRN #1 bottle Family Disease History - Family Disease History Family Disease History: Other: Mother (ascending aortic aneurysm) Review of Systems - Review of Systems Constitutional: reports: No Symptoms Eyes: reports: No Symptoms HENT: reports: No Symptoms Neck: reports: No Symptoms Cardiovascular: reports: No Symptoms Respiratory: reports: No Symptoms Gastrointestinal: reports: Abdominal Pain, Other (RIGHT FLANK PAIN, NO CHANGE IN BOWEL HABITS, NO CONSTIPATION) Genitourinary: reports: No Symptoms Musculoskeletal: reports: No Symptoms Integumentary: reports: No Symptoms Neurological: reports: No Symptoms Endocrine: reports: No Symptoms Hematology/Lymphatic: reports: No Symptoms Psychiatric: reports: No Symptoms Physical Exam-GI Vital Signs: Vital Signs Temperature 98.7 F 12/31/16 14:00 Pulse Rate 67 12/31/16 14:00 Respiratory Rate 20 12/31/16 14:00 Blood Pressure 114/61 12/31/16 14:00 O2 Sat by Pulse Oximetry (%) 98 12/31/16 10:00 Constitutional: Yes: Obese Eyes: Yes: Conjunctiva Clear HENT: Yes: Normocephalic Neck: Yes: Supple Cardiovascular: Yes: Regular Rate and Rhythm, Murmur Respiratory: Yes: Regular ...Auscultate: Yes: Normoactive Bowel Sounds ...Palpate: Yes: Soft, Other (RUQ PAIN TO DEEP PALPATION) Genitourinary: Yes: WNL Musculoskeletal: Yes: WNL Extremities: Yes: WNL Neurological: Yes: WNL Psychiatric: Yes: Alert, Oriented Labs: INR, PTT INR 2.16 (0.82-1.09) H 12/31/16 05:35 Laboratory Tests 12/30/16 12/30/16 12/30/16 10:30 10:30 10:30 WBC 8.2 RBC 4.78 Hgb 13.3 Hct 39.7 MCV 83.2 MCHC 33.5 RDW 14.0 Plt Count 328 MPV 7.9 Neutrophils % 69.3 Lymphocytes % 22.0 D Monocytes % 6.2 Eosinophils % 1.4 Basophils % 1.1 D ESR INR 1.77 H D Sodium 141 Potassium 4.4 Chloride 105 Carbon Dioxide 29 Anion Gap 7 L BUN 14 D Creatinine 0.8 Creat Clearance w eGFR > 60 Random Glucose 86 Calcium 9.0 Total Bilirubin 0.8 AST 18 D ALT 44 Alkaline Phosphatase 81 Creatine Kinase 78 Troponin I < 0.02 C-Reactive Protein Total Protein 6.9 Albumin 3.6 Lipase 128 Urine Color Urine Appearance Urine pH Ur Specific [place] Urine Protein Urine Glucose (UA) Urine Ketones Urine Blood Urine Nitrite Urine Bilirubin Urine Urobilinogen Ur Leukocyte Esterase JENNIFER Screen Hepatitis A IgM Ab Hep Bs Antigen Hep B Core IgM Ab Hepatitis C Ab (EIA) 12/30/16 12/31/16 12/31/16 12:14 05:35 05:35 WBC RBC Hgb Hct MCV MCHC RDW Plt Count MPV Neutrophils % Lymphocytes % Monocytes % Eosinophils % Basophils % ESR 16 INR Sodium Potassium Chloride Carbon Dioxide Anion Gap BUN Creatinine Creat Clearance w eGFR Random Glucose Calcium Total Bilirubin AST ALT Alkaline Phosphatase Creatine Kinase Troponin I C-Reactive Protein Total Protein Albumin Lipase Urine Color Ltyellow Urine Appearance Clear Urine pH 5.0 Ur Specific [place] 1.012 Urine Protein Negative Urine Glucose (UA) Negative Urine Ketones Negative Urine Blood Negative Urine Nitrite Negative Urine Bilirubin Negative Urine Urobilinogen Negative Ur Leukocyte Esterase Negative JENNIFER Screen Pending Hepatitis A IgM Ab Pending Hep Bs Antigen Pending Hep B Core IgM Ab Pending Hepatitis C Ab (EIA) Pending 12/31/16 12/31/16 05:35 05:35 WBC RBC Hgb Hct MCV MCHC RDW Plt Count MPV Neutrophils % Lymphocytes % Monocytes % Eosinophils % Basophils % ESR INR 2.16 H Sodium Potassium Chloride Carbon Dioxide Anion Gap BUN Creatinine Creat Clearance w eGFR Random Glucose Calcium Total Bilirubin AST ALT Alkaline Phosphatase Creatine Kinase Troponin I C-Reactive Protein 1.9 H Total Protein Albumin Lipase Urine Color Urine Appearance Urine pH Ur Specific [place] Urine Protein Urine Glucose (UA) Urine Ketones Urine Blood Urine Nitrite Urine Bilirubin Urine Urobilinogen Ur Leukocyte Esterase JENNIFER Screen Hepatitis A IgM Ab Hep Bs Antigen Hep B Core IgM Ab Hepatitis C Ab (EIA) Imaging - Results Cat Scan: Image Reviewed Ultrasound: Image Reviewed Problem List - Problems (1) Right upper quadrant abdominal pain Assessment/Plan: HER SYMPTOMS ARE MULTIPLE AND VAGUE BUT SHE DOES HAVE RUQ PAIN. I WILL ORDER A HIDA SCAN. I DO NOT THINK THE HEPATOMEGALY IS CAUSING RUQ OR RIGHT FLANK PAIN I HAVE ALSO INCREASE HER H2 NATALIE TO BID THIS COULD BE MILD DUODENITIS. IF ALL NEGATIVE I COULD PERFORM AN EGD AN OUTPATIENT Code(s): R10.11 - RIGHT UPPER QUADRANT PAIN (2) Right flank discomfort Code(s): R10.9 - UNSPECIFIED ABDOMINAL PAIN (3) Enlarged liver Assessment/Plan: APPEARS TO BE FAT RELATED AND NOT RIGHT SIDED FAILURE. Code(s): R16.0 - HEPATOMEGALY, NOT ELSEWHERE CLASSIFIED (4) NAFLD (nonalcoholic fatty liver disease) Assessment/Plan: NO REAL BENEFICIAL THERAPY FOR NAFLD EXCEPT FOR LARGE DOSES OF VITAMIN E. WITH HEART DISEASE I WILL NOT START THIS. WEIGHT LOSS AND METFORMIN OR ACTOS ARE THE OTHER THERAPIES. THESE CAN BE EVALUATED AN OUTPATIENT. Code(s): K76.0 - FATTY (CHANGE OF) LIVER, NOT ELSEWHERE CLASSIFIED (5) Status post aortic valve replacement with prosthetic valve Code(s): Z95.2 - PRESENCE OF PROSTHETIC HEART VALVE (6) Palpitations Code(s): R00.2 - PALPITATIONS (7) Aortic regurgitation Code(s): I35.1 - NONRHEUMATIC AORTIC (VALVE) INSUFFICIENCY
[2016-12-31] MEDS: RANITIDINE HCL 150 MG TABLET (FP) PO SCH (21:50)
--- NOTE | 2016-12-31 21:56 | PN ---
Progress Note, Physician Chief Complaint: AWAKE ALERT FAMILY BEDSIDE STILL HAVING RUQ PAIN STILL SOB - Current Medication List Current Medications: Active Medications Acetaminophen (Tylenol -) 650 mg PO Q6H PRN PRN Reason: FEVER OR PAIN Enoxaparin Sodium (Lovenox -) 80 mg SQ Q12H [facility] Morphine Sulfate (Morphine Injection -) 4 mg IVPUSH Q6H PRN PRN Reason: PAIN Last Admin: 12/31/16 10:24 Dose: 4 mg Ondansetron HCl (Zofran -) 4 mg PO Q6H PRN PRN Reason: NAUSEA AND/OR VOMITING Ranitidine HCl (Zantac -) 150 mg PO BID [facility] Warfarin Sodium (Coumadin -) 4 mg PO DAILY@1800 [facility] Last Admin: 12/31/16 17:53 Dose: 4 mg - Objective Vital Signs: Vital Signs Temperature 98.7 F 12/31/16 14:00 Pulse Rate 67 12/31/16 14:00 Respiratory Rate 20 12/31/16 14:00 Blood Pressure 114/61 12/31/16 14:00 O2 Sat by Pulse Oximetry (%) 98 12/31/16 10:00 Constitutional: Yes: Mild Distress Eyes: Yes: WNL HENT: Yes: WNL Neck: Yes: WNL Cardiovascular: Yes: Murmur Respiratory: Yes: Cough, Poor Air Entry Gastrointestinal: Yes: WNL, Tenderness, Tenderness, Rebound ...Rectal Exam: Yes: WNL Genitourinary: Yes: WNL Musculoskeletal: Yes: WNL Extremities: Yes: WNL Edema: No Peripheral Pulses WNL: Yes Integumentary: Yes: WNL Wound/Incision: Yes: Clean/Dry, Excoriated Neurological: Yes: WNL ...Motor Strength: WNL Psychiatric: Yes: WNL Labs: INR, PTT INR 2.16 (0.82-1.09) H 12/31/16 05:35 Problem List - Problems (1) Abdominal pain Code(s): R10.9 - UNSPECIFIED ABDOMINAL PAIN Qualifiers: Abdominal location: unspecified location Qualified Code(s): R10.9 - Unspecified abdominal pain (2) Subtherapeutic international normalized ratio (INR) Code(s): R79.1 - ABNORMAL COAGULATION PROFILE (3) Chest pain Code(s): R07.9 - CHEST PAIN, UNSPECIFIED (4) Cardiac murmur, unspecified Code(s): R01.1 - CARDIAC MURMUR, UNSPECIFIED Assessment/Plan CARDIOLOGY INTERVENTION WITH CIT[facility] WILL NEED LOVENOX FOR SUBTHERAPEUTIC INR RUQ PAIN WILL NEED GI EVAL JANETTE VU ORDERED CT ABD AND SONO SHOWS FATTY LIVER TELEMETRY MONITORING CITLALY SCHEDULED TOMORROW LOVENOX SQ BID, COUMADIN POST CITLALY CHECK
[2017-01-01 06:07] LABS: SERUM IRON 45 ug/dL (27-159)
[2017-01-01 08:11] LABS: INR 2.69 (0.82-1.09); PROTHROMBIN TIME (PATIENT) 30.2 SEC (9.98-11.88)
[2017-01-01 08:12] LABS: CREATININE 0.7 mg/dL (0.55-1.02)
[2017-01-01 08:20] LABS: THYROID STIMULATING HORMONE 3.37 uIU/ml (0.358-3.74)
--- NOTE | 2017-01-01 10:56 | PN ---
Progress Note, Physician Chief Complaint: AWAKE ALERT SCHEDULED FOR HIDA SCAN AND CITLALY TODAY - Current Medication List Current Medications: Active Medications Acetaminophen (Tylenol -) 650 mg PO Q6H PRN PRN Reason: FEVER OR PAIN Enoxaparin Sodium (Lovenox -) 80 mg SQ Q12H [facility] Last Admin: 12/31/16 21:50 Dose: 80 mg Morphine Sulfate (Morphine Injection -) 4 mg IVPUSH Q6H PRN PRN Reason: PAIN Last Admin: 12/31/16 21:50 Dose: 4 mg Ondansetron HCl (Zofran -) 4 mg PO Q6H PRN PRN Reason: NAUSEA AND/OR VOMITING Ranitidine HCl (Zantac -) 150 mg PO BID [facility] Last Admin: 12/31/16 21:50 Dose: 150 mg Warfarin Sodium (Coumadin -) 4 mg PO DAILY@1800 [facility] Last Admin: 12/31/16 17:53 Dose: 4 mg - Objective Vital Signs: Vital Signs Temperature 97.9 F 01/01/17 06:00 Pulse Rate 65 01/01/17 06:00 Respiratory Rate 20 01/01/17 06:00 Blood Pressure 131/72 01/01/17 06:00 O2 Sat by Pulse Oximetry (%) 96 12/31/16 21:00 Constitutional: Yes: Mild Distress Eyes: Yes: WNL HENT: Yes: WNL Neck: Yes: WNL Cardiovascular: Yes: Pulse Irregular, Murmur Respiratory: Yes: WNL Gastrointestinal: Yes: Tenderness Genitourinary: Yes: WNL Musculoskeletal: Yes: WNL Extremities: Yes: WNL Edema: No Peripheral Pulses WNL: Yes Integumentary: Yes: WNL Wound/Incision: Yes: Clean/Dry Neurological: Yes: WNL ...Motor Strength: WNL Psychiatric: Yes: WNL Labs: CBC, BMP 01/01/17 05:40 INR, PTT INR 2.69 (0.82-1.09) H 01/01/17 05:40 Problem List - Problems (1) Abdominal pain Code(s): R10.9 - UNSPECIFIED ABDOMINAL PAIN Qualifiers: Abdominal location: right upper quadrant Qualified Code(s): R10.11 - Right upper quadrant pain (2) Subtherapeutic international normalized ratio (INR) Code(s): R79.1 - ABNORMAL COAGULATION PROFILE (3) Chest pain Code(s): R07.9 - CHEST PAIN, UNSPECIFIED Qualifiers: Ischemic chest pain type: other angina pectoris type (4) Cardiac murmur, unspecified Code(s): R01.1 - CARDIAC MURMUR, UNSPECIFIED Assessment/Plan HIDA SCAN TODAY CITL[facility]Y WITH BUBBLE STUDY INR THERAPEUTIC LOVENOX STOPPED CONTINUE COUMADIN GI EVAL
[2017-01-01] MEDS: ENOXAPARIN NA (PORCINE) 80 MG/0.8 ML DISP.SYRIN SQ SCH (11:07)
[2017-01-01] MEDS: RANITIDINE HCL 150 MG TABLET (FP) PO SCH ×2 (11:08→21:04)
[2017-01-01] MEDS ORDERED: PROPOFOL 20 ML ONE ×2 (14:07)
[2017-01-01] MEDS: WARFARIN NA 2 MG TABLET (UD) PO SCH (17:24)
--- NOTE | 2017-01-01 18:39 | PN ---
Progress Note (short form) - Note Progress Note: CC: Abdominal pain S: abdominal pain persists but improved. no cp, sob, dizziness. mild palpitations, not during episode of svt. Current Medications Acetaminophen (Tylenol -) 650 mg PO Q6H PRN PRN Reason: FEVER OR PAIN Morphine Sulfate (Morphine Injection -) 4 mg IVPUSH Q6H PRN PRN Reason: PAIN Last Admin: 12/31/16 21:50 Dose: 4 mg Ondansetron HCl (Zofran -) 4 mg PO Q6H PRN PRN Reason: NAUSEA AND/OR VOMITING Ranitidine HCl (Zantac -) 150 mg PO BID [facility] Last Admin: 01/01/17 11:08 Dose: Not Given Warfarin Sodium (Coumadin -) 4 mg PO DAILY@1800 [facility] Last Admin: 01/01/17 17:24 Dose: 4 mg Vital Signs - 24 hr 12/31/16 01/01/17 01/01/17 21:00 02:00 06:00 Temperature 98.1 F 97.8 F 97.9 F Pulse Rate 74 64 65 Respiratory 20 20 20 Rate Blood Pressure 134/81 126/61 131/72 O2 Sat by Pulse 96 Oximetry (%) 01/01/17 01/01/17 01/01/17 09:00 14:56 15:11 Temperature 97.9 F 97.5 F L Pulse Rate 61 74 70 Respiratory 18 16 18 Rate Blood Pressure 148/64 135/81 149/95 O2 Sat by Pulse 98 96 100 Oximetry (%) 01/01/17 01/01/17 15:34 16:07 Temperature 98.2 F Pulse Rate 83 64 Respiratory 18 20 Rate Blood Pressure 125/79 138/74 O2 Sat by Pulse 100 Oximetry (%) Intake & Output 12/30/16 12/31/16 01/01/17 01/02/17 07:59 07:59 07:59 07:59 Intake Total 620 300 Balance 620 300 Weight 200 lb NAD, calm JVD flat, neck supple CTAB, nl effort rrr nl s1, s2 2/6 sys murmur at usb with mechanical s2 + bs soft nt + tenderness at upper abdomen ext without e/c/c + dp/pt aaox3 CBC, BMP 12/30/16 10:30 01/01/17 05:40 EKG: sr, lad, anterior q waves. non-specific t wave flattening tele: Sr, short run of svt on monitor. Abdominal imaging notable for mildly enlarged fatty liver. u/s noted visualized abdominal aorta wnl. 56 yo with h/o mechanical Aortic valve replacement for BAV (AR and ), ascending aneurysm repair and possible ASD repair 2001 p/w abdominal pain and noted to have subtherapeutic INR AVR - subtherapeutic INR. lovenox bridge to therapeutic coumadin. --> Per patient, INR goal 2.5-3.5. - CITLALY today to further evaluate new aortic regurgitation with le edema and progressive interiano. --> unremarkable. AR not significant and no ASD on bubble study. Palps - telemetry monitoring while here short run of svt. plan for event monitor as outpatient HTN - initially elevated, now improved with pain control - pain control per pmd abdominal sx's - atypical for cardiac symptoms. LFT's not consistent with hepatic congestion. Normal abdominal aorta on u/s. Eval/mgm't per pmd. GI following stable from a CV perspective.
--- NOTE | 2017-01-01 18:43 | PROC ---
Transesophageal Echocardiogram - Pre-Procedure Indications: Assess valve - prosthetic Risks and Benefits Explained: Yes Consent on Chart: Yes - Procedure Procedure Done: in Endoscopy Suite Medication given: propofol Findings: No significant aortic regurgitation. negative bubble study.
[2017-01-01] MEDS: morphine CARPU-JECT 4 MG/1 ML DISP.SYRIN IVPUSH PRN (21:12)
[2017-01-02] MEDS: morphine CARPU-JECT 4 MG/1 ML DISP.SYRIN IVPUSH PRN (02:16)
[2017-01-02 06:28] VITALS: BP 112/42; PULSE 67; TEMP 97.6
--- NOTE | 2017-01-02 07:24 | DS ---
Physical Examination Vital Signs: Vital Signs Temperature 97.6 F 01/02/17 06:23 Pulse Rate 67 01/02/17 06:23 Respiratory Rate 20 01/02/17 06:23 Blood Pressure 112/42 01/02/17 06:23 O2 Sat by Pulse Oximetry (%) 96 01/01/17 21:00 Constitutional: Yes: No Distress Eyes: Yes: WNL HENT: Yes: WNL Neck: Yes: WNL Cardiovascular: Yes: WNL Respiratory: Yes: WNL Gastrointestinal: Yes: Tenderness Renal/: Yes: WNL Musculoskeletal: Yes: WNL Extremities: Yes: WNL Edema: No Peripheral Pulses WNL: Yes Integumentary: Yes: WNL Wound/Incision: Yes: Clean/Dry Neurological: Yes: WNL ...Motor Strength: WNL Psychiatric: Yes: WNL Labs: CBC, BMP 01/01/17 05:40 Discharge Summary Reason For Visit: ADBOMINAL PAIN Current Active Problems Abdominal pain (Acute) Aortic regurgitation (Acute) Cardiac murmur, unspecified (Acute) Enlarged liver (Acute) NAFLD (nonalcoholic fatty liver disease) (Acute) Right flank discomfort (Acute) Right upper quadrant abdominal pain (Acute) Subtherapeutic international normalized ratio (INR) (Acute) Procedures: Principal: emmanuel/bubble study Other Procedures: hida scan/sono Hospital Course: admitted ruq pain, found to have worsening leaky cardiac valve, workup negative with hida scan, dc home Condition: Stable - Instructions Diet, Activity, Other Instructions: Please take 30 mL of Maalox every 6 hours needed for abdominal pain. Please take 29 as a pest every 12 hours as needed. For your INR, please take some 7.5 mg of Coumadin tonight and call your doctor for potential changes in your dosing. Please make an appointment with a GI physician. Referrals: Lloyd Funk DO [Staff Physician] - Florentino He MD [Staff Physician] - Alena Back MD [Staff Physician] - Ronnell Horton MD [Staff Physician] - Disposition: HOME - Home Medications Comprehensive Discharge Medication List: Ambulatory Orders Warfarin Sodium [Coumadin] 4 mg PO HS 03/02/16 Famotidine [Pepcid] 20 mg PO BID PRN #14 tablet 12/30/16 Mag Hydrox/Al Hydrox/Simeth [MAALOX *SUSPENSION* -] 30 ml PO Q6H PRN #1 bottle 12/30/16 Acetaminophen [Tylenol .Regular Strength -] 650 mg PO Q6H PRN #0 tablet Warfarin Na [Coumadin -] 4 mg PO DAILY@1800 tablet 01/02/17
[2017-01-02 08:28] LABS: MCH 28.6 pg (25.7-33.7); MCHC 34.3 g/dl (32.0-36.0); MEAN CELL VOLUME 83.2 fl (80-96); MEAN PLT VOLUME 7.9 fl (7.5-11.1); PLATELET COUNT 289 K/MM3 (134-434); RDW 13.6 % (11.6-15.6); WHITE BLOOD COUNT 6.9 K/mm3 (4.0-10.0)
[2017-01-02 08:29] LABS: INR 2.91 (0.82-1.09); PROTHROMBIN TIME (PATIENT) 32.7 SEC (9.98-11.88)
[2017-01-02 08:31] LABS: ALBUMIN 3.2 g/dl (3.4-5.0); ALK PHOS 73 U/L (45-117); ANION GAP 6 (8-16); BILIRUBIN,TOTAL 0.6 mg/dL (0.2-1.0); CALCIUM 7.9 mg/dL (8.5-10.1); CO2 28 mmol/L (21-32); COCKROFT - GAULT 113.7895; CREATININE 0.8 mg/dL (0.55-1.02); GLUCOSE,RANDOM 93 mg/dL (74-106); SGOT/AST 37 U/L (15-37); SGPT/ALT 61 U/L (12-78)
[2017-01-02] MEDS: RANITIDINE HCL 150 MG TABLET (FP) PO SCH (09:31)
--- NOTE | 2017-01-02 10:27 | PN ---
Progress Note (short form) - Note Progress Note: S: abdominal pain persists but improved. no cp, sob, dizziness, palps Current Medications Generic Name Dose Route Start Last Admin Trade Name Sandi PRN Reason Stop Dose Admin Acetaminophen 650 mg 12/30/16 17:38 Tylenol - PO Q6H PRN FEVER OR PAIN Morphine Sulfate 4 mg 12/30/16 17:38 01/02/17 02:16 Morphine Injection - IVPUSH 4 mg Q6H PRN Administration PAIN Ondansetron HCl 4 mg 12/30/16 21:16 Zofran - PO Q6H PRN NAUSEA AND/OR VOMITING Ranitidine HCl 150 mg 12/31/16 22:00 01/02/17 09:31 Zantac - PO 150 mg BID SHERI Administration Warfarin Sodium 4 mg 12/30/16 21:30 01/01/17 17:24 Coumadin - PO 4 mg DAILY@1800 SHERI Administration Vital Signs Period Temp Pulse Resp BP Sys/Rose Pulse Ox Last 24 Hr 97.5 F-98.2 F 64-83 16-20 105-162/42-95 96-100 NAD, calm JVD flat, neck supple CTAB, nl effort rrr nl s1, s2 2/6 sys murmur at usb with mechanical s2 + bs soft nt + tenderness at upper abdomen ext without e/c/c aaox3 CBC, BMP 01/02/17 05:58 01/02/17 05:58 EKG: sr, lad, anterior q waves. non-specific t wave flattening tele: Sr a/p: 56 yo with h/o mechanical Aortic valve replacement for BAV (AR and ), ascending aneurysm repair and possible ASD repair 2001 p/w abdominal pain and noted to have subtherapeutic INR AVR - subtherapeutic INR. lovenox bridge to therapeutic coumadin. --> INR goal 2.5- 3.5. - CITLALY done here to further evaluate new aortic regurgitation with le edema and progressive interiano --> unremarkable. AR not significant and no ASD on bubble study. Palps - telemetry monitoring while here with short run of svt. plan for event monitor as outpatient HTN - initially elevated, now improved with pain control - pain control per pmd abdominal sx's - atypical for cardiac symptoms. LFT's not consistent with hepatic congestion. Normal abdominal aorta on u/s. Eval/mgm't per pmd. GI following stable from a CV perspective.
== END 2017-01-02 11:40 | disposition home or self-care (01) | DRG 392 ==
LOC: JER 09:30 → JERBED 14:35 → J4W 18:06
PROVIDERS: ADMIT Family Medicine; ATTEND Family Medicine
PROC: B246ZZ4 Ultrasonography of Right and Left Heart, Transesophageal (ICD-10-PCS; principal; 2017-01-01 14:00)
DX: R10.11 Right upper quadrant pain (principal); I35.1 Nonrheumatic aortic (valve) insufficiency; R79.1 Abnormal coagulation profile; R07.9 Chest pain, unspecified; R01.1 Cardiac murmur, unspecified; R16.0 Hepatomegaly, not elsewhere classified
CPT/HCPCS: 36415; 74176; 76705-TC; 78226-TC; 80048; 80053; 80074; 81003; 82550; 83540; 83690; 84443; 84484; 85025; 85027; 85610; 85651; 85730; 86038; 86140; 87086; 93005; 93010; 93312; 93325; 99284-25; A9537

== ENCOUNTER 2017-02-10 12:47 | Emergency (ER) | payer BC ==
[2017-02-10 12:56] VITALS: BMI 34.1
--- NOTE | 2017-02-10 13:28 | PDOC ---
History of Present Illness - General Chief Complaint: Pain, Acute Stated Complaint: ABD PAIN Time Seen by Provider: 02/10/17 13:28 History Source: Patient Exam Limitations: No Limitations - History of Present Illness Travel History: No Initial Comments: 02/10/17 17:24 Patient here for evaluation of right neck pain and right upper quadrant pain. 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 Has not a certain diagnosis nor is there any particular treatment so far. States pain in her right upper quadrant and her abdomen is similar to the same type of biliary colic pain but mildly worse today. Denies fever, denies nausea or vomiting, denies any changes in bowel movements, no discoloration to stools. HEENT of right neck spasm, there is been no exercise changes no activity could' ve caused injury or spasm. States onset of that pain was yesterday and has progressively worsened denies history of arthritis in neck or other post injury 02/10/17 19:24 02/10/17 19:31 02/10/17 19:35 02/10/17 19:36 02/10/17 19:37 Timing/Duration: reports: constant Quality: reports: aching, cramping, fullness, sharpness Abdominal Pain Onset Location: reports: RUQ, epigastric, generalized abdomen Pain Radiation: reports: flank Activities at Onset: reports: none Past History - Travel Traveled outside of the country in the last 30 days: No Close contact w/someone who was outside of country & ill: No - Past Medical History Allergies/Adverse Reactions: Allergies Allergy/AdvReac Type Severity Reaction Status Date / Time No Known Allergies Allergy Verified 02/10/17 12:53 Home Medications: Ambulatory Orders Warfarin Na [Coumadin -] 4 mg PO DAILY@1800 tablet 01/02/17 Cyclobenzaprine HCl [Flexeril 10 mg] 10 mg PO BID PRN #14 tablet 02/10/17 Oxycodone HCl/Acetaminophen [Percocet 5-325 mg Tablet -] 1 - 2 tab PO Q4H PRN # 7 tablet MDD 4 02/10/17 Propranolol HCl [Inderal] 40 mg PO DAILY 02/10/17 Vortioxetine Hydrobromide [Trintellix] 5 mg PO DAILY 02/10/17 Cardiac Disorders: Yes (AAA repair, Aorti valve replacement) HTN: Yes Other medical history: biliary dyskinesia - Surgical History Abdominal Surgery: Yes Cardiac Surgery: Yes (ANEURYSM REPAIR, VALVE REPLACEMENT) - Immunization History Immunization Up to Date: Yes - Psycho/Social/Smoking Cessation Hx Anxiety: No Suicidal Ideation: No Smoking Status: No Smoking History: Never smoked Have you smoked in the past 12 months: No Number of Cigarettes Smoked Daily: 0 Cigars Per Day: 0 Hx Alcohol Use: No Drug/Substance Use Hx: No Substance Use Type: None Hx Substance Use Treatment: No Abd/GI Specific PMHX - Complaint Specific PMHX GERD: No GI Ulcer Disease: No Comments:: 02/10/17 19:34 Diagnosis of biliary disease, complicated and uncertain as to exact mechanism and pathology. Review of Systems - Review of Systems Able to Perform ROS?: Yes Is the patient limited Vietnamese proficient: Yes Constitutional: Yes: Symptoms Reported, See HPI. No: Fever, Malaise HEENTM: No: Symptoms Reported Respiratory: Yes: Symptoms reported, See HPI Cardiac (ROS): Yes: Symptoms Reported ABD/GI: Yes: Symptoms Reported, See HPI, Abdominal Distended, Diarrhea, Nausea, Abdominal cramping. No: Vomiting : Yes: See HPI. No: Symptoms Reported Musculoskeletal: Yes: Symptoms Reported, Joint Pain, Muscle Pain, Neck Pain, Joint Stiffness Integumentary: Yes: See HPI. No: Symptoms Reported Neurological: Yes: Symptoms reported All Other Systems: Reviewed and Negative *Physical Exam - Vital Signs Last Vital Signs Temp Pulse Resp BP Pulse Ox 98.1 F 80 18 125/51 99 02/10/17 12:53 02/10/17 12:53 02/10/17 12:53 02/10/17 12:53 02/10/17 12:53 - Physical Exam General Appearance: Yes: Nourished, Appropriately Dressed, Apparent Distress, Moderate Distress HEENT: positive: EOMI, SHREE, Normal ENT Inspection, TMs Normal, Pharynx Normal Neck: positive: Tender, Supple. negative: Lymphadenopathy (R), Lymphadenopathy (L) Respiratory/Chest: positive: Lungs Clear, Normal Breath Sounds Cardiovascular: positive: Regular Rhythm Gastrointestinal/Abdominal: positive: Soft. negative: Tender Musculoskeletal: positive: Muscle Spasm (palpable spasm noted to the paravertebral spinous musculature on the right side with worsened pain to palpation at occiput. Has no crepitus or step-offs to C-spine, no true bone tenderness. Range of motion is mildly limited secondary to the spasm. trigger- point pressure reproduces numbness and pain patient reported as painful) Extremity: positive: Normal Capillary Refill, Normal Range of Motion, Tender, Other (macias has full range of motion to the fingers, able to flex and extend without tenderness, neurovascular intact and sensation intact. Able to supinate and pronate without pain to elbow. Tenderness is at site, without redness, swelling, exudate or purulent drainage noted at the insertion site of PICC line. Tubing appears to be intact without drainage). negative: Swelling Integumentary: positive: Normal Color, Warm, Pale. negative: Swelling, Ecchymosis, Bruising Neurologic: positive: hasher operator II-XII NML intact, Fully Oriented, Alert, Normal Mood/ Affect, Normal Response, Motor Strength 01/17 ED Treatment Course - LABORATORY CBC & Chemistry Diagram: 02/10/17 14:30 02/10/17 14:30 Comment: INR:4.06 - RADIOLOGY Comments: ultrasounds shows no acute pathology, fatty liver and hepatoomegaly Progress Note - Progress Note Progress Note: Case was discussed with Dr. Gordillo, unable to contact Dr. Powell her PCP. He is familiar with patient, understands her Coumadin status and her R of 4.0. He feels comfortable with discharge, understands patient will receive 7 Percocet for pain relief and encouraged her follow up in their office tomorrow morning. Patient is agreeable with this plan, and was discharged with Flexeril for spasm to her neck and #7 Percocet tablets. *DC/Admit/Observation/Transfer Diagnosis at time of Disposition: Abdominal pain Qualifiers: Abdominal location: right upper quadrant Qualified Code(s): R10.11 - Right upper quadrant pain Cervical myofascial strain Qualifiers: Encounter type: initial encounter Qualified Code(s): S16.1XXA - Strain of muscle, fascia and tendon at neck level, initial encounter - Discharge Dispostion Disposition: HOME Condition at time of disposition: Stable Admit: No - Prescriptions Prescriptions: Cyclobenzaprine HCl [Flexeril 10 mg] 10 mg PO BID PRN #14 tablet PRN Reason: Muscle Spasms Oxycodone HCl/Acetaminophen [Percocet 5-325 mg Tablet -] 1 - 2 tab PO Q4H PRN # 7 tablet MDD 4 PRN Reason: Pain - Referrals Referrals: Jaqueline Powell [Primary Care Provider] - - Patient Instructions Printed Discharge Instructions: DI for Cervical Muscle Strain Additional Instructions: Rest, no heavy lifting or exercise until pain is resolved Hot soaks to neck and low back as often as possible/hot showers or Jacuzzis No massage or therapy until spasm is gone Continue ibuprofen 2-200 mg tablets every 6 hours for the next 3 days then as needed for pain and swelling Cyclobenzaprine 1-10mg every 8 hours as needed for spasm May use Percocet one or 2 tablets every 6 hours for severe pain See tomorrow morning for further evaluation If not significant improvement within 24 hours with medication and rest regime, followup with private physician for change in medications and /or therapy. - Post Discharge Activity Work/School Note: Back to Work
[2017-02-10 13:52] LABS: URINE APPEARANCE CLEAR; URINE BILIRUBIN NEGATIVE (NEGATIVE); URINE BLOOD NEGATIVE (NEGATIVE); URINE COLOR YELLOW; URINE GLUCOSE (UA) NEGATIVE (NEGATIVE); URINE KETONE NEGATIVE (NEGATIVE); URINE NITRITE NEGATIVE (NEGATIVE); URINE PROTEIN NEGATIVE (NEGATIVE); URINE UROBILINOGEN NEGATIVE E.U./dl (0.2-1.0)
[2017-02-10 13:54] LABS: URINE LEUK ESTERASE TRACE (NEGATIVE)
[2017-02-10 13:56] LABS: URINE MUCUS RARE; URINE RBC 2 /hpf (0-3); URINE WBC 4 /hpf (3-5)
[2017-02-10] MEDS ORDERED: KETOROLAC TROMETHAMINE 30 MG/1 ML VIAL ONE (14:03)
[2017-02-10] MEDS ORDERED: ACETAMINOPHEN 1000 MG/100 ML VIAL (NON FORMULARY) IVPB ONE (14:04)
[2017-02-10] MEDS ORDERED: diazePAM 5 MG TABLET PO ONE (14:06)
[2017-02-10] MEDS ORDERED: SODIUM CHLORIDE 0.9% 1000 ML INFUS.BAG IV ONE (14:08)
[2017-02-10] MEDS ORDERED: diazePAM 5 MG TABLET ONE (14:08)
[2017-02-10] MEDS ORDERED: ACETAMINOPHEN INJECTION 100 ML IVPB ONE (14:09)
[2017-02-10 14:43] LABS: BASOPHIL 0.7 % (0-2.0); EOSINOPHIL 2.3 % (0-4.5); MCH 28.5 pg (25.7-33.7); MCHC 34.3 g/dl (32.0-36.0); MEAN CELL VOLUME 83.2 fl (80-96); NEUTROPHILS 65.3 % (42.8-82.8); PLATELET COUNT 314 K/MM3 (134-434); RDW 13.8 % (11.6-15.6); WHITE BLOOD COUNT 7.9 K/mm3 (4.0-10.0)
[2017-02-10 15:00] LABS: PROTHROMBIN TIME (PATIENT) 45.9 SEC (9.98-11.88)
[2017-02-10 15:12] LABS: INR 4.06 (0.82-1.09)
[2017-02-10 15:14] LABS: ALBUMIN 3.4 g/dl (3.4-5.0); ALK PHOS 91 U/L (45-117); ANION GAP 10 (8-16); BILIRUBIN,TOTAL 0.5 mg/dL (0.2-1.0); CALCIUM 8.8 mg/dL (8.5-10.1); CO2 29 mmol/L (21-32); CREATININE 0.8 mg/dL (0.55-1.02); GLUCOSE,RANDOM 141 mg/dL (74-106); SGOT/AST 18 U/L (15-37); SGPT/ALT 41 U/L (12-78); TOT PROT 6.2 g/dl (6.4-8.2)
[2017-02-10 15:16] LABS: TROPONIN I < 0.02 ng/ml (0.00-0.05)
[2017-02-10] MEDS ORDERED: morphine CARPU-JECT 4 MG/1 ML DISP.SYRIN ONE (18:08)
[2017-02-10] MEDS ORDERED: morphine CARPU-JECT 4 MG/1 ML DISP.SYRIN IVPUSH ONE (19:22)
[2017-02-10 19:39] VITALS: BP 120/78; PULSE 68; TEMP 98.2
--- NOTE | 2017-02-11 14:14 | EKG ---
Test Reason : Blood Pressure : / mmHG Vent. Rate : 061 BPM Atrial Rate : 061 BPM P-R Int : 174 ms QRS Dur : 092 ms QT Int : 452 ms P-R-T Axes : 011 -38 000 degrees QTc Int : 455 ms NORMAL SINUS RHYTHM LEFT AXIS DEVIATION MINIMAL VOLTAGE CRITERIA FOR LVH, MAY BE NORMAL VARIANT SEPTAL INFARCT (CITED ON OR BEFORE 30-DEC-2016) ABNORMAL ECG WHEN COMPARED WITH ECG OF 30-DEC-2016 12:36, NO SIGNIFICANT CHANGE WAS FOUND Confirmed by ANKIT CRUZ MD ([id number]) on 02/11/2017 2:14:30 PM Referred By: Confirmed By:ANKIT CRUZ MD
== END 2017-02-10 19:20 | disposition home or self-care (01) ==
LOC: JER 12:47
PROC: 3E033NZ Introduction of Analgesics, Hypnotics, Sedatives into Peripheral Vein, Percutaneous Approach (ICD-10-PCS; principal; 2017-02-10)
PROC: 3E033NZ Introduction of Analgesics, Hypnotics, Sedatives into Peripheral Vein, Percutaneous Approach (ICD-10-PCS; 2017-02-10)
DX: S16.1XXA Strain of muscle, fascia and tendon at neck level, initial encounter (principal); M62.838 Other muscle spasm; G24.8 Other dystonia; K83.8 Other specified diseases of biliary tract; Z95.2 Presence of prosthetic heart valve; Z79.01 Long term (current) use of anticoagulants; Z86.79 Personal history of other diseases of the circulatory system
CPT/HCPCS: 36415; 71020-TC; 76705-TC; 80053; 81003; 81015; 82550; 83690; 84484; 85025; 85610; 93005; 93010; 99284-25

== ENCOUNTER 2017-05-28 09:21 | Inpatient (IN) | payer BC ==
[2017-05-28 09:25] VITALS: BMI 33.3
--- NOTE | 2017-05-28 09:32 | PDOC ---
History of Present Illness - General History Source: Patient Exam Limitations: No Limitations - History of Present Illness Initial Comments: 05/28/17 10:36 The patient is a 57 year old female, with a significant past medical history of HTN, AAA repair s/p mechanical aortic valve replacement on coumadin, who presents to the emergency department with INR to 11.2 on outpt labs. 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 She has not had any dose changes recently. She has not had any changes to her diet and no new medications or vitamins. She reports feeling like her "organs hurt in her belly" which she relates to when her INR is elevated. +nausea. Denies dark or bloody stools. She denies recent fevers, chills, headache or dizziness. She denies recent vomit, diarrhea or constipation. She denies recent dysuria, frequency, urgency or hematuria. She denies recent chest pain or shortness of breath. Allergies: NKA Past surgical history: See HPI Social history: Nonsmoker. Denies EtOH use and recreational drug use. 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: <Paresh Colón - Last Filed: 05/28/17 10:36> <Zoie Mclain - Last Filed: 05/28/17 12:17> - General Chief Complaint: Revisit, Lab Variance Stated Complaint: LOW IRON (PCP SENT) Time Seen by Provider: 05/28/17 09:32 Past History <Paresh Colón - Last Filed: 05/28/17 10:36> - Past Medical History Cardiac Disorders: Yes (AA repair, Aorti valve replacement) HTN: No - Surgical History Abdominal Surgery: Yes Cardiac Surgery: Yes (ANEURYSM REPAIR, VALVE REPLACEMENT) - Immunization History Immunization Up to Date: Yes - Psycho/Social/Smoking Cessation Hx Anxiety: No Suicidal Ideation: No Smoking Status: No Smoking History: Never smoked Have you smoked in the past 12 months: No Number of Cigarettes Smoked Daily: 0 Cigars Per Day: 0 Hx Alcohol Use: No Drug/Substance Use Hx: No Substance Use Type: None Hx Substance Use Treatment: No <Zoie Mclain - Last Filed: 05/28/17 12:17> - Past Medical History Allergies/Adverse Reactions: Allergies Allergy/AdvReac Type Severity Reaction Status Date / Time No Known Allergies Allergy Verified 05/28/17 09:25 Home Medications: Ambulatory Orders Propranolol HCl [Inderal] 60 mg PO DAILY 02/10/17 Vortioxetine Hydrobromide [Trintellix] 5 mg PO DAILY 02/10/17 Warfarin Na [Coumadin -] 4 mg PO DAILY 05/28/17 Review of Systems - Review of Systems Able to Perform ROS?: Yes Comments:: 05/28/17 10:36 GENERAL/CONSTITUTIONAL: No fever or chills. No weakness. HEAD, EYES, EARS, NOSE AND THROAT: No change in vision. No ear pain or discharge. No sore throat. CARDIOVASCULAR: No chest pain or shortness of breath. RESPIRATORY: No cough, wheezing, or hemoptysis. GASTROINTESTINAL: +nausea +organ pain. No vomiting, diarrhea or constipation. GENITOURINARY: No dysuria, frequency, or change in urination. MUSCULOSKELETAL: +back pain. No joint or muscle swelling or pain. No neck pain. SKIN: No rash NEUROLOGIC: No headache, vertigo, loss of consciousness, or change in strength/ sensation. ENDOCRINE: No increased thirst. No abnormal weight change. HEMATOLOGIC/LYMPHATIC: No anemia, easy bleeding, or history of blood clots. ALLERGIC/IMMUNOLOGIC: No hives or skin allergy. <Paresh Colón - Last Filed: 05/28/17 10:36> *Physical Exam - Vital Signs Last Vital Signs Temp Pulse Resp BP Pulse Ox 98.4 F 102 H 20 125/86 99 05/28/17 09:21 05/28/17 09:21 05/28/17 09:21 05/28/17 09:21 05/28/17 10:20 - Physical Exam Comments: 05/28/17 10:36 GENERAL: Awake, alert, and fully oriented, in no acute distress HEAD: No signs of trauma EYES: PERRLA, EOMI, sclera anicteric, conjunctiva clear ENT: Auricles normal inspection, hearing grossly normal, nares patent, oropharynx clear without exudates. Moist mucosa NECK: Normal ROM, supple, no lymphadenopathy, JVD, or masses LUNGS: Breath sounds equal, clear to auscultation bilaterally. No wheezes, and no crackles HEART: Regular rate and rhythm, normal S1 and S2, loud mechanical opening and closing sound auscultated throughout, loudest in 2nd R ICS consistent with mechanical valve. ABDOMEN: Not remarkable. Soft, nontender, normoactive bowel sounds. No guarding , no rebound. No masses EXTREMITIES: Normal range of motion, no edema. No clubbing or cyanosis. No cords , erythema, or tenderness NEUROLOGICAL: Normal speech, cranial nerves intact, negative pronator drift, 5/ 5 strength in all 4 extremities, normal sensation to light touch in all 4 extremities, normal cerebellar exam, normal gait, normal reflexes and tone SKIN: Warm, Dry, normal turgor, no rashes or lesions noted. <Paresh Colón - Last Filed: 05/28/17 10:36> - Vital Signs Last Vital Signs Temp Pulse Resp BP Pulse Ox 98.4 F 102 H 20 125/86 99 05/28/17 09:21 05/28/17 09:21 05/28/17 09:21 05/28/17 09:21 05/28/17 09:21 <Zoie Mclain - Last Filed: 05/28/17 12:17> ED Treatment Course - LABORATORY CBC & Chemistry Diagram: 05/28/17 10:10 05/28/17 10:10 - ADDITIONAL ORDERS Additional order review: 05/28/17 10:10 RBC 4.60 MCV 83.1 MCHC 33.4 RDW 13.9 MPV 7.9 Neutrophils % 68.6 Lymphocytes % 23.6 Monocytes % 5.2 Eosinophils % 1.8 Basophils % 0.8 <Paresh Colón - Last Filed: 05/28/17 10:36> - LABORATORY CBC & Chemistry Diagram: 05/28/17 10:10 05/28/17 10:10 <Zoie Mclain - Last Filed: 05/28/17 12:17> Medical Decision Making - Medical Decision Making 05/28/17 11:17 57yo F hx AAA s/p AVR with mechanical valve on coumadin p/w INR of 11 on outpt labs. Pt c/o pain in her organs but no bleeding or other symptoms. Exam, including abd exam benign. Will repeat labs to see what INR is, if elevated, pt may require admission for obs for titration. -labs -reassess 05/28/17 11:24 INR 9+, Spoke with Andre Syed who recommends we admit the patient for observation and not to reverse with vit K due to the mechanical valve. We have paged Dr. Hogue for admission, awaiting call back. 05/28/17 12:[address] Hogue. Pt to be admitted for obs <Zoie Mclain - Last Filed: 05/28/17 12:17> *DC/Admit/Observation/Transfer - Attestations Scribe Attestion: 05/28/17 10:36 Documentation prepared by Paresh Colón, acting as medical case worker for Zoie Mclain MD. <Paresh Colón - Last Filed: 05/28/17 10:36> - Discharge Dispostion Admit: Yes - Attestations Physician Attestion: 05/28/17 12:16 I, Dr. Zoie Mclain MD, attest that this document has been prepared under my direction and personally reviewed by me in its entirety. I further attest, that it accurately reflects all work, treatment, procedures and medical decision -making performed by me. <Zoie Mclain - Last Filed: 05/28/17 12:17> Diagnosis at time of Disposition: Supratherapeutic international normalized ratio (INR) - Discharge Dispostion Condition at time of disposition: Stable - Referrals Referrals: Jaqueline Powell [Primary Care Provider] -
[2017-05-28 10:22] LABS: BASOPHIL 0.8 % (0-2.0); EOSINOPHIL 1.8 % (0-4.5); MCH 27.8 pg (25.7-33.7); MCHC 33.4 g/dl (32.0-36.0); MEAN CELL VOLUME 83.1 fl (80-96); MEAN PLT VOLUME 7.9 fl (7.5-11.1); NEUTROPHILS 68.6 % (42.8-82.8); PLATELET COUNT 342 K/MM3 (134-434); RDW 13.9 % (11.6-15.6); WHITE BLOOD COUNT 7.8 K/mm3 (4.0-10.0)
[2017-05-28 11:03] LABS: ALBUMIN 3.6 g/dl (3.4-5.0); ANION GAP 9 (8-16); CALCIUM 8.6 mg/dL (8.5-10.1); CO2 27 mmol/L (21-32); CREATININE 0.9 mg/dL (0.55-1.02); GLUCOSE,RANDOM 127 mg/dL (74-106); SGPT/ALT 57 U/L (12-78); TOT PROT 6.7 g/dl (6.4-8.2)
[2017-05-28 11:04] LABS: ALK PHOS 95 U/L (45-117); SGOT/AST 37 U/L (15-37)
[2017-05-28 11:12] LABS: ACTIVATED PTT 86.5 SECONDS (26.9-34.4)
[2017-05-28 11:14] LABS: INR 9.85 (0.82-1.09)
[2017-05-28 11:15] LABS: PROTHROMBIN TIME (PATIENT) 113.5 SEC (9.98-11.88)
[2017-05-28] MEDS ORDERED: ONDANSETRON *ODT* 4 MG TABLET SL PRN (16:25)
[2017-05-28] MEDS: oxyCODONE HCL 5 MG TABLET PO PRN (17:29)
[2017-05-28 20:02] LABS: PROTHROMBIN TIME (PATIENT) 106.5 SEC (9.98-11.88)
[2017-05-28 20:03] LABS: INR 9.25 (0.82-1.09)
[2017-05-28] MEDS ORDERED: PHYTONADIONE 5 MG TABLET PO ONE (20:30)
--- NOTE | 2017-05-28 20:57 | CONSULT ---
Consult Consult Specialty:: Hematology/Oncology - History of Present Illness History of Present Illness: The patient is a 57 year old female, with a significant past medical history of HTN, AAA repair s/p mechanical aortic valve replacement on coumadin, who presents to the emergency department with INR to 11.2 on outpt labs. 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 She has not had any dose changes recently. She last checked her INR prior to this and was within target range. Denies dark or bloody stools. She denies recent fevers, chills, headache or dizziness. She denies recent vomit, diarrhea or constipation. She denies recent dysuria, frequency, urgency or hematuria. She denies recent chest pain or shortness of breath. Hematology consulted for high INR. Patient seen and examined. at bedside. - History Source History Provided By: Patient - Past Medical History OFFSHORE DIVER: Yes: TIA Cardio/Vascular: Yes: Aneurysm, HTN, Other (Bicuspid AV s/p Mechanical AVR and aortic aneursym repair 2001 [facility]). No: AFIB, Aortic Insufficiency, Aortic Stenosis, CAD, CHF, Deep Vein Thrombosis, Hyperlipdemia, IN, Mitral Insufficiency, Mitral Stenosis, Murmur, Pulmonary Hypertension Gastrointestinal: Yes: Other (POSSIBLE GB DISEASE???) ...LMP: 11/14/03 ...: No - Past Surgical History Past Surgical History: Yes: Valve Replacement. No: None, AAA Repair, AICD, Amputation, Appendectomy, Arthrosocopy, AV Fistula/Graft, Bariatric Surgery, Breast Biopsy, Bypass, CABG, Carotid Endarterectomy, Cataract Removal, Cholecystectomy, Colectomy, Colonoscopy, Colostomy, Craniotomy, , Cystectomy, Hernia Repair, Hysterectomy, Ileal Conduit, Ileosotomy, Joint Replacement, Kidney Transplant, Laminectomy, Liver Transplant, Mastectomy, Nephrectomy, Oopherectomy, Orchiectomy, Permanent Pacemaker, Prostatectomy, Splenectomy, Stent, Thoracotomy, TURP, Tonsillectomy, Tubal Ligation, Upper Endoscopy, Vasectomy, Vein Stripping/Ligation - Alcohol/Substance Use Hx Alcohol Use: No - Smoking History Smoking history: Never smoked Have you smoked in the past 12 months: No Aproximately how many cigarettes per day: 0 - Social History ADL: Independent History of Recent Travel: No Home Medications - Allergies Allergies/Adverse Reactions: Allergies Allergy/AdvReac Type Severity Reaction Status Date / Time No Known Allergies Allergy Verified 05/28/17 09:25 - Home Medications Home Medications: Ambulatory Orders Propranolol HCl [Inderal] 60 mg PO DAILY 02/10/17 Vortioxetine Hydrobromide [Trintellix] 5 mg PO DAILY 02/10/17 Warfarin Na [Coumadin -] 4 mg PO DAILY 05/28/17 Family Disease History - Family Disease History Family Disease History: Other: Mother (ascending aortic aneurysm) Review of Systems - Review of Systems Constitutional: reports: No Symptoms Eyes: reports: No Symptoms Cardiovascular: reports: No Symptoms Gastrointestinal: reports: No Symptoms Physical Exam Vital Signs: Vital Signs Temperature 97.7 F 05/28/17 14:31 Pulse Rate 64 05/28/17 14:31 Respiratory Rate 20 05/28/17 14:31 Blood Pressure 112/52 05/28/17 14:31 O2 Sat by Pulse Oximetry (%) 97 05/28/17 14:55 Constitutional: Yes: Well Nourished, No Distress, Calm Eyes: Yes: Conjunctiva Clear HENT: Yes: Atraumatic, Normocephalic Neck: Yes: Supple, Trachea Midline Cardiovascular: Yes: Regular Rate and Rhythm Respiratory: Yes: Regular, CTA Bilaterally Gastrointestinal: Yes: Normal Bowel Sounds, Soft Extremities: Yes: WNL Edema: No Problem List - Problems (1) Supratherapeutic international normalized ratio (INR) Code(s): R79.1 - ABNORMAL COAGULATION PROFILE (2) Aortic regurgitation Code(s): I35.1 - NONRHEUMATIC AORTIC (VALVE) INSUFFICIENCY (3) Coagulopathy Code(s): D68.9 - COAGULATION DEFECT, UNSPECIFIED Assessment/Plan Supratherapeutic INR (pt on coumadin for Mechanical valve) Recent diagnosis of gastroparesis -etiology of high INR?, diet -repeat PT/INR stat, still noted to be elevated >9 , pt received 5mg PO vit K, no evidence of bleeding -INR in the am, her goal 2.5-3.5 -if she is reversed below the goal, will need to bridge with heparin either LMWH vs UFH as pt is with a mechanical valve. -cardiology f/u -corporate responsibility officer consult for re-iterating of dietary restrictions on coumadin -PTT elevation, will send off Lupus anticoagulant, though coumadin can cause -communicated with RN.
--- NOTE | 2017-05-28 22:12 | CON.CARD ---
Consult - History of Present Illness History of Present Illness: The patient is a 57 year old female, with a significant past medical history of HTN, AAA repair s/p mechanical aortic valve replacement on coumadin, who presents to the emergency department with INR to 11.2 on outpt labs. 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 She has not had any dose changes recently. She last checked her INR prior to this and was within target range. Denies dark or bloody stools. She denies recent fevers, chills, headache or dizziness. She denies recent vomit, diarrhea or constipation. She denies recent dysuria, frequency, urgency or hematuria. She denies recent chest pain or shortness of breath. Hematology consulted for high INR. Patient seen and examined. at bedside. 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 No: AFIB, Aortic Insufficiency, Aortic Stenosis, CAD, CHF, Deep Vein Thrombosis, Hyperlipdemia, CT, Mitral Insufficiency, Mitral Stenosis, Murmur, Pulmonary Hypertension Gastrointestinal: Yes: Other (POSSIBLE GB DISEASE???) ...LMP: 11/14/03 ...: No - Past Surgical History Past Surgical History: Yes: Valve Replacement. No: None, AAA Repair, AICD, Amputation, Appendectomy, Arthrosocopy, AV Fistula/Graft, Bariatric Surgery, Breast Biopsy, Bypass, CABG, Carotid Endarterectomy, Cataract Removal, Cholecystectomy, Colectomy, Colonoscopy, Colostomy, Craniotomy, , Cystectomy, Hernia Repair, Hysterectomy, Ileal Conduit, Ileosotomy, Joint Replacement, Kidney Transplant, Laminectomy, Liver Transplant, Mastectomy, Nephrectomy, Oopherectomy, Orchiectomy, Permanent Pacemaker, Prostatectomy, Splenectomy, Stent, Thoracotomy, TURP, Tonsillectomy, Tubal Ligation, Upper Endoscopy, Vasectomy, Vein Stripping/Ligation - Alcohol/Substance Use Hx Alcohol Use: No - Smoking History Smoking history: Never smoked Have you smoked in the past 12 months: No Aproximately how many cigarettes per day: 0 - Social History ADL: Independent History of Recent Travel: No Home Medications - Allergies Allergies/Adverse Reactions: Allergies Allergy/AdvReac Type Severity Reaction Status Date / Time No Known Allergies Allergy Verified 05/28/17 09:25 - Home Medications Home Medications: Ambulatory Orders Propranolol HCl [Inderal] 60 mg PO DAILY 02/10/17 Vortioxetine Hydrobromide [Trintellix] 5 mg PO DAILY 02/10/17 Warfarin Na [Coumadin -] 4 mg PO DAILY 05/28/17 Family Disease History - Family Disease History Family Disease History: Other: Mother (ascending aortic aneurysm) Review of Systems - Review of Systems Constitutional: reports: No Symptoms Eyes: reports: No Symptoms HENT: reports: No Symptoms Neck: reports: No Symptoms Cardiovascular: reports: No Symptoms Gastrointestinal: reports: No Symptoms Genitourinary: reports: No Symptoms Breasts: reports: No Symptoms Reported Musculoskeletal: reports: No Symptoms Integumentary: reports: No Symptoms Neurological: reports: No Symptoms Endocrine: reports: No Symptoms Hematology/Lymphatic: reports: No Symptoms Psychiatric: reports: No Symptoms Vital Signs: Vital Signs Temperature 97.7 F 05/28/17 14:31 Pulse Rate 64 05/28/17 14:31 Respiratory Rate 20 05/28/17 14:31 Blood Pressure 112/52 05/28/17 14:31 O2 Sat by Pulse Oximetry (%) 97 05/28/17 14:55 Constitutional: Yes: Well Nourished, No Distress, Calm Eyes: Yes: WNL, Conjunctiva Clear, EOM Intact HENT: Yes: WNL, Atraumatic, Normocephalic Neck: Yes: WNL, Supple, Trachea Midline Respiratory: Yes: WNL, Regular, CTA Bilaterally Gastrointestinal: Yes: WNL, Normal Bowel Sounds Renal/: Yes: WNL Cardiovascular: Yes: WNL, Regular Rate and Rhythm Murmur: Yes: Systolic Murmur, Grade 2 Musculoskeletal: Yes: WNL Extremities: Yes: WNL Integumentary: Yes: WNL Neurological: Yes: WNL, Alert, Oriented ...Motor Strength: WNL Psychiatric: Yes: WNL, Alert, Oriented - Other Data Labs, Other Data: INR, PTT INR 9.25 (0.82-1.09) H* 05/28/17 18:00 Laboratory Tests 05/28/17 05/28/17 05/28/17 10:10 10:10 10:10 WBC 7.8 RBC 4.60 Hgb 12.8 Hct 38.2 MCV 83.1 MCH 27.8 MCHC 33.4 RDW 13.9 Plt Count 342 D MPV 7.9 Neutrophils % 68.6 Lymphocytes % 23.6 Monocytes % 5.2 Eosinophils % 1.8 Basophils % 0.8 INR 9.85 H* D PTT (Actin FS) 86.5 H D Sodium 140 Potassium 4.5 Chloride 104 Carbon Dioxide 27 Anion Gap 9 BUN 11 Creatinine 0.9 Creat Clearance w eGFR > 60 Random Glucose 127 H Calcium 8.6 Total Bilirubin 1.0 AST 37 D ALT 57 Alkaline Phosphatase 95 Total Protein 6.7 Albumin 3.6 Lipase 121 05/28/17 05/28/17 18:00 18:00 WBC RBC Hgb Hct MCV MCH MCHC RDW Plt Count MPV Neutrophils % Lymphocytes % Monocytes % Eosinophils % Basophils % INR 9.25 H* PTT (Actin FS) 79.4 H Sodium Potassium Chloride Carbon Dioxide Anion Gap BUN Creatinine Creat Clearance w eGFR Random Glucose Calcium Total Bilirubin AST ALT Alkaline Phosphatase Total Protein Albumin Lipase Imaging - Results Chest X-ray: Pending EKG: Pending Problem List - Problems (1) Supratherapeutic international normalized ratio (INR) Code(s): R79.1 - ABNORMAL COAGULATION PROFILE (2) Abdominal pain Code(s): R10.9 - UNSPECIFIED ABDOMINAL PAIN Qualifiers: Abdominal location: right upper quadrant Qualified Code(s): R10.11 - Right upper quadrant pain (3) Anticoagulation goal of INR 2 to 3 Code(s): Z51.81 - ENCOUNTER FOR THERAPEUTIC DRUG LEVEL MONITORING Z79.01 - ENVIRONMENTAL SERVICES TECH (CURRENT) USE OF ANTICOAGULANTS (4) Anxiety Code(s): F41.9 - ANXIETY DISORDER, UNSPECIFIED (5) Aortic regurgitation Code(s): I35.1 - NONRHEUMATIC AORTIC (VALVE) INSUFFICIENCY (6) Atypical chest pain Code(s): R07.89 - OTHER CHEST PAIN (7) Biliary colic Code(s): K80.50 - CALCULUS OF BILE DUCT W/O CHOLANGITIS OR CHOLECYST W/O OBST (8) Cardiac murmur, unspecified Code(s): R01.1 - CARDIAC MURMUR, UNSPECIFIED (9) Cervical myofascial strain Code(s): S16.1XXA - STRAIN OF MUSCLE, FASCIA AND TENDON AT NECK LEVEL, INIT Qualifiers: Encounter type: initial encounter Qualified Code(s): S16.1XXA - Strain of muscle, fascia and tendon at neck level, initial encounter (10) Chest pain Code(s): R07.9 - CHEST PAIN, UNSPECIFIED Qualifiers: Ischemic chest pain type: other angina pectoris type (11) Coagulopathy Code(s): D68.9 - COAGULATION DEFECT, UNSPECIFIED (12) Diarrhea Code(s): R19.7 - DIARRHEA, UNSPECIFIED (13) Diarrhea in adult patient Code(s): R19.7 - DIARRHEA, UNSPECIFIED (14) Enlarged liver Code(s): R16.0 - HEPATOMEGALY, NOT ELSEWHERE CLASSIFIED (15) Gout Code(s): M10.9 - GOUT, UNSPECIFIED (16) Headache Code(s): R51 - HEADACHE (17) NAFLD (nonalcoholic fatty liver disease) Code(s): K76.0 - FATTY (CHANGE OF) LIVER, NOT ELSEWHERE CLASSIFIED (18) Overdose of coumadin Code(s): T45.511A - POISONING BY ANTICOAGULANTS, ACCIDENTAL, INIT (19) Palpitations Code(s): R00.2 - PALPITATIONS (20) Right flank discomfort Code(s): R10.9 - UNSPECIFIED ABDOMINAL PAIN (21) Right upper quadrant abdominal pain Code(s): R10.11 - RIGHT UPPER QUADRANT PAIN (22) Status post aortic valve replacement with prosthetic valve Code(s): Z95.2 - PRESENCE OF PROSTHETIC HEART VALVE (23) Subtherapeutic international normalized ratio (INR) Code(s): R79.1 - ABNORMAL COAGULATION PROFILE (24) Syncope Code(s): R55 - SYNCOPE AND COLLAPSE Qualifiers: Syncope type: vasovagal syncope Qualified Code(s): R55 - Syncope and collapse Assessment/Plan HTN, AAA repair s/p mechanical aortic valve replacement on coumadin, who presents to the emergency department with INR to 11.2 plan hold coumadine ekg echo will f/u
[2017-05-29 07:52] LABS: MCH 28.2 pg (25.7-33.7); MEAN CELL VOLUME 82.9 fl (80-96); MEAN PLT VOLUME 7.9 fl (7.5-11.1); PLATELET COUNT 328 K/MM3 (134-434); RDW 13.8 % (11.6-15.6)
[2017-05-29 08:23] LABS: INR 6.65 (0.82-1.09)
[2017-05-29 08:26] LABS: ALBUMIN 3.3 g/dl (3.4-5.0); ANION GAP 6 (8-16); CALCIUM 8.9 mg/dL (8.5-10.1); CO2 30 mmol/L (21-32); GLUCOSE,RANDOM 93 mg/dL (74-106)
[2017-05-29 08:29] LABS: ALK PHOS 76 U/L (45-117); BILIRUBIN,TOTAL 0.9 mg/dL (0.2-1.0); CREATININE 0.8 mg/dL (0.55-1.02); SGOT/AST 27 U/L (15-37); SGPT/ALT 57 U/L (12-78)
--- NOTE | 2017-05-29 08:38 | PN ---
Progress Note, Physician History of Present Illness: The patient is a 57 year old female, with a significant past medical history of bicuspid aortic valve, ascending aortic aneurysm, and ASD (all surgically treated 2001 at [facility]), s/p mechanical aortic valve replacement on coumadin, HTN, who presents to the emergency department with INR to 11.2 on outpt labs. 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 She has not had any dose changes recently. She has not had any changes to her diet and no new medications or vitamins. She reports feeling like her "organs hurt in her belly" which she relates to when her INR is elevated. +nausea. Denies dark or bloody stools. She denies recent fevers, chills, headache or dizziness. She denies recent vomit, diarrhea or constipation. She denies recent dysuria, frequency, urgency or hematuria. She denies recent chest pain or shortness of breath. Allergies: NKA Past surgical history: See HPI Social history: Nonsmoker. Denies EtOH use and recreational drug use. 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: - Current Medication List Current Medications: Active Medications Ondansetron HCl (Zofran Odt -) 4 mg SL Q6H PRN PRN Reason: NAUSEA AND/OR VOMITING Oxycodone HCl (Roxicodone -) 5 mg PO Q6H PRN PRN Reason: PAIN Last Admin: 05/28/17 17:29 Dose: 5 mg - Objective Vital Signs: Vital Signs Temperature 97.6 F 05/29/17 06:00 Pulse Rate 63 05/29/17 06:00 Respiratory Rate 20 05/29/17 06:00 Blood Pressure 107/49 05/29/17 06:00 O2 Sat by Pulse Oximetry (%) 96 05/29/17 05:20 Labs: CBC, BMP 05/29/17 06:00 05/29/17 06:00 INR, PTT INR 6.65 (0.82-1.09) H* 05/29/17 06:00 Problem List - Problems (1) Supratherapeutic international normalized ratio (INR) Assessment/Plan: INR has decreased to 6; f/u serially (was give Vitamin K initially). Code(s): R79.1 - ABNORMAL COAGULATION PROFILE (2) Abdominal pain Code(s): R10.9 - UNSPECIFIED ABDOMINAL PAIN Qualifiers: Abdominal location: right upper quadrant Qualified Code(s): R10.11 - Right upper quadrant pain (3) Anxiety Code(s): F41.9 - ANXIETY DISORDER, UNSPECIFIED (4) Aortic regurgitation Code(s): I35.1 - NONRHEUMATIC AORTIC (VALVE) INSUFFICIENCY (5) Atypical chest pain Code(s): R07.89 - OTHER CHEST PAIN (6) Coagulopathy Code(s): D68.9 - COAGULATION DEFECT, UNSPECIFIED (7) Headache Code(s): R51 - HEADACHE (8) Overdose of coumadin Code(s): T45.511A - POISONING BY ANTICOAGULANTS, ACCIDENTAL, INIT Qualifiers: Injury intent: accidental or unintentional
--- NOTE | 2017-05-29 09:33 | CON.GI ---
Consult Consult Specialty:: GASTROENTEROLOGY - History of Present Illness Chief Complaint: Elevated INR History of Present Illness: This is a 57-year-old female admitted with supratherapeutic INR. She has a history of gastroparesis with a positive gastric emptying scan/ abdominal pain epigastric and right upper quadrant locations. She also has a positive HIDA scan for gallbladder dyskinesia. She was admitted with an INR of 11.2; she has a history of aortic valve replacement. She told the ER doctor that all the organs in the abdomen hurt. Currently she feels no pain she has no nausea vomiting melena or rectal bleeding. 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 No: AFIB, Aortic Insufficiency, Aortic Stenosis, CAD, CHF, Deep Vein Thrombosis, Hyperlipdemia, ND, Mitral Insufficiency, Mitral Stenosis, Murmur, Pulmonary Hypertension Gastrointestinal: Yes: Other (gastroparesis) Hepatobiliary: Yes: Other (as above) ...LMP: 11/14/03 ...: No - Past Surgical History Past Surgical History: Yes: Valve Replacement. No: None, AAA Repair, AICD, Amputation, Appendectomy, Arthrosocopy, AV Fistula/Graft, Bariatric Surgery, Breast Biopsy, Bypass, CABG, Carotid Endarterectomy, Cataract Removal, Cholecystectomy, Colectomy, Colonoscopy, Colostomy, Craniotomy, , Cystectomy, Hernia Repair, Hysterectomy, Ileal Conduit, Ileosotomy, Joint Replacement, Kidney Transplant, Laminectomy, Liver Transplant, Mastectomy, Nephrectomy, Oopherectomy, Orchiectomy, Permanent Pacemaker, Prostatectomy, Splenectomy, Stent, Thoracotomy, TURP, Tonsillectomy, Tubal Ligation, Upper Endoscopy, Vasectomy, Vein Stripping/Ligation - Alcohol/Substance Use Hx Alcohol Use: No - Smoking History Smoking history: Never smoked Have you smoked in the past 12 months: No Aproximately how many cigarettes per day: 0 - Social History ADL: Independent History of Recent Travel: No Home Medications - Allergies Allergies/Adverse Reactions: Allergies Allergy/AdvReac Type Severity Reaction Status Date / Time No Known Allergies Allergy Verified 05/28/17 09:25 - Home Medications Home Medications: Ambulatory Orders Propranolol HCl [Inderal] 60 mg PO DAILY 02/10/17 Vortioxetine Hydrobromide [Trintellix] 5 mg PO DAILY 02/10/17 Warfarin Na [Coumadin -] 4 mg PO DAILY 05/28/17 Family Disease History - Family Disease History Family Disease History: Other: Mother (ascending aortic aneurysm) Review of Systems - Review of Systems Constitutional: reports: No Symptoms Eyes: reports: No Symptoms HENT: reports: No Symptoms Neck: reports: No Symptoms Cardiovascular: reports: No Symptoms Respiratory: reports: No Symptoms Gastrointestinal: reports: No Symptoms Genitourinary: reports: No Symptoms Breasts: reports: No Symptoms Reported Musculoskeletal: reports: No Symptoms Integumentary: reports: No Symptoms Neurological: reports: No Symptoms Endocrine: reports: No Symptoms Hematology/Lymphatic: reports: No Symptoms Psychiatric: reports: No Symptoms Physical Exam-GI Vital Signs: Vital Signs Temperature 97.6 F 05/29/17 06:00 Pulse Rate 63 05/29/17 06:00 Respiratory Rate 20 05/29/17 06:00 Blood Pressure 107/49 05/29/17 06:00 O2 Sat by Pulse Oximetry (%) 96 05/29/17 05:20 Constitutional: Yes: Obese Eyes: Yes: Conjunctiva Clear HENT: Yes: Normocephalic Neck: Yes: Supple Cardiovascular: Yes: Regular Rate and Rhythm, Murmur Respiratory: Yes: Regular Gastrointestinal Inspection: Yes: WNL ...Auscultate: Yes: Normoactive Bowel Sounds ...Palpate: Yes: Soft Musculoskeletal: Yes: WNL Extremities: Yes: WNL Neurological: Yes: WNL Labs: CBC, BMP 05/29/17 06:00 05/29/17 06:00 INR, PTT INR 6.65 (0.82-1.09) H* 05/29/17 06:00 Problem List - Problems (1) Supratherapeutic international normalized ratio (INR) Assessment/Plan: as per medical team Code(s): R79.1 - ABNORMAL COAGULATION PROFILE (2) Anxiety Code(s): F41.9 - ANXIETY DISORDER, UNSPECIFIED (3) Gastroparesis Assessment/Plan: small multiple meals Code(s): K31.84 - GASTROPARESIS (4) Dyskinesia of gallbladder Assessment/Plan: currently no abdominal pain Code(s): K82.8 - OTHER SPECIFIED DISEASES OF GALLBLADDER (5) Fatty liver Code(s): K76.0 - FATTY (CHANGE OF) LIVER, NOT ELSEWHERE CLASSIFIED
--- NOTE | 2017-05-29 10:23 | HP ---
Admitting History and Physical - Primary Care Physician PCP: Scott Hogue - Admission Chief Complaint: ABD PAIN NAUSEA AND VOMITING/INR COAGULAPTHY History of Present Illness: The patient is a 57 year old female, with a significant past medical history of HTN, AAA repair s/p mechanical aortic valve replacement on coumadin, who presents to the emergency department with INR to 11.2 on outpt labs. 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 She has not had any dose changes recently. She has not had any changes to her diet and no new medications or vitamins. She reports feeling like her "organs hurt in her belly" which she relates to when her INR is elevated. +nausea. Denies dark or bloody stools. She denies recent fevers, chills, headache or dizziness. She denies recent vomit, diarrhea or constipation. She denies recent dysuria, frequency, urgency or hematuria. She denies recent chest pain or shortness of breath. History Source: Patient, Medical Record - Past Medical History MOUNTED POLICE: Yes: TIA Cardiovascular: Yes: Aneurysm, HTN, Other (Bicuspid AV s/p Mechanical AVR and aortic aneursym repair 2001 [facility]). No: AFIB, Aortic Insufficiency, Aortic Stenosis, CAD, CHF, Deep Vein Thrombosis, Hyperlipdemia, ID, Mitral Insufficiency, Mitral Stenosis, Murmur, Pulmonary Hypertension Gastrointestinal: Yes: Other (POSSIBLE GB DISEASE???) ...LMP: 11/14/03 ...: No - Past Surgical History Past Surgical History: Yes: Valve Replacement. No: None, AAA Repair, AICD, Amputation, Appendectomy, Arthrosocopy, AV Fistula/Graft, Bariatric Surgery, Breast Biopsy, Bypass, CABG, Carotid Endarterectomy, Cataract Removal, Cholecystectomy, Colectomy, Colonoscopy, Colostomy, Craniotomy, , Cystectomy, Hernia Repair, Hysterectomy, Ileal Conduit, Ileosotomy, Joint Replacement, Kidney Transplant, Laminectomy, Liver Transplant, Mastectomy, Nephrectomy, Oopherectomy, Orchiectomy, Permanent Pacemaker, Prostatectomy, Splenectomy, Stent, Thoracotomy, TURP, Tonsillectomy, Tubal Ligation, Upper Endoscopy, Vasectomy, Vein Stripping/Ligation - Advance Directives Advance Directives: Yes: Health Care Proxy - Smoking History Smoking history: Never smoked Have you smoked in the past 12 months: No Aproximately how many cigarettes per day: 0 - Alcohol/Substance Use Hx Alcohol Use: No - Social History ADL: Independent History of Recent Travel: No Home Medications - Allergies Allergies/Adverse Reactions: Allergies Allergy/AdvReac Type Severity Reaction Status Date / Time No Known Allergies Allergy Verified 05/28/17 09:25 - Home Medications Home Medications: Ambulatory Orders Propranolol HCl [Inderal] 60 mg PO DAILY 02/10/17 Vortioxetine Hydrobromide [Trintellix] 5 mg PO DAILY 02/10/17 Warfarin Na [Coumadin -] 4 mg PO DAILY 05/28/17 Family Disease History - Family Disease History Family Disease History: Other: Mother (ascending aortic aneurysm) Review of Systems - Review of Systems Constitutional: reports: Weakness Eyes: reports: No Symptoms HENT: reports: No Symptoms Neck: reports: No Symptoms Cardiovascular: reports: No Symptoms Respiratory: reports: No Symptoms Gastrointestinal: reports: Abdominal Pain, Nausea, Vomiting Genitourinary: reports: No Symptoms Musculoskeletal: reports: Joint Pain Integumentary: reports: No Symptoms Neurological: reports: No Symptoms Endocrine: reports: No Symptoms Hematology/Lymphatic: reports: No Symptoms Psychiatric: reports: No Symptoms Physical Examination Vital Signs: Vital Signs Temperature 97.6 F 05/29/17 06:00 Pulse Rate 63 05/29/17 06:00 Respiratory Rate 20 05/29/17 06:00 Blood Pressure 107/49 05/29/17 06:00 O2 Sat by Pulse Oximetry (%) 96 05/29/17 05:20 Constitutional: Yes: Mild Distress Eyes: Yes: WNL HENT: Yes: WNL Neck: Yes: WNL Cardiovascular: Yes: Murmur Respiratory: Yes: WNL Gastrointestinal: Yes: Tenderness Musculoskeletal: Yes: WNL Extremities: Yes: WNL Edema: No Peripheral Pulses WNL: Yes Integumentary: Yes: WNL Wound/Incision: Yes: Clean/Dry Neurological: Yes: WNL ...Motor Strength: WNL Psychiatric: Yes: WNL Labs: CBC, BMP 05/29/17 06:00 05/29/17 06:00 Problem List - Problems (1) Abdominal pain Code(s): R10.9 - UNSPECIFIED ABDOMINAL PAIN Qualifiers: Abdominal location: right upper quadrant Qualified Code(s): R10.11 - Right upper quadrant pain (2) Cardiac murmur, unspecified Code(s): R01.1 - CARDIAC MURMUR, UNSPECIFIED (3) Overdose of coumadin Code(s): T45.511A - POISONING BY ANTICOAGULANTS, ACCIDENTAL, INIT Qualifiers: Injury intent: accidental or unintentional (4) Status post aortic valve replacement with prosthetic valve Code(s): Z95.2 - PRESENCE OF PROSTHETIC HEART VALVE (5) Nausea & vomiting Code(s): R11.2 - NAUSEA WITH VOMITING, UNSPECIFIED Qualifiers: Vomiting type: unspecified Vomiting Intractability: unspecified Qualified Code(s): R11.2 - Nausea with vomiting, unspecified Assessment/Plan TEDDY MCBRIDE R/O ACUTE DISEASE GI EVAL ADVANCE DIET TOLERATED OOB TO CHAIR DVT PROPHYLAXIS TEDS INR CHECKS HOLD COUMADIN
[2017-05-29] MEDS: oxyCODONE HCL 5 MG TABLET PO PRN ×2 (10:30→21:12)
--- NOTE | 2017-05-29 15:01 | PN ---
Progress Note (short form) - Note Progress Note: Patient seen and examined. she feels well. she denies any complains General: NAD HEENT: Normal Abdomen: normal Lungs: CTA Extremities: no swelling Current Medications Generic Name Dose Route Start Last Admin Trade Name Freq PRN Reason Stop Dose Admin Ondansetron HCl 4 mg 05/28/17 16:25 Zofran Odt - SL Q6H PRN NAUSEA AND/OR VOMITING Oxycodone HCl 5 mg 05/28/17 16:21 05/29/17 10:30 Roxicodone - PO 5 mg Q6H PRN Administration PAIN CBC, BMP 05/29/17 06:00 05/29/17 06:00 INR, PTT INR 6.65 (0.82-1.09) H* 05/29/17 06:00 Last Vital Signs Temp Pulse Resp BP Pulse Ox 97.6 F 63 20 107/49 96 05/29/17 06:00 05/29/17 06:00 05/29/17 06:00 05/29/17 06:00 05/29/17 05:20 Supratherapeutic INR (pt on coumadin for Mechanical valve) Recent diagnosis of gastroparesis -INR trending down, no further vit K doses needed -coumadin on hold -likely will continue to trend down -appreciate cardiology f/u -if discharged in the next 1-2d, will need close INR f/u on friday (she mentioned that she goes to ) Problem List - Problems (1) Supratherapeutic international normalized ratio (INR) Code(s): R79.1 - ABNORMAL COAGULATION PROFILE (2) Aortic regurgitation Code(s): I35.1 - NONRHEUMATIC AORTIC (VALVE) INSUFFICIENCY (3) Coagulopathy Code(s): D68.9 - COAGULATION DEFECT, UNSPECIFIED
[2017-05-30 08:00] LABS: MCH 28.5 pg (25.7-33.7); MCHC 34.3 g/dl (32.0-36.0); MEAN CELL VOLUME 82.9 fl (80-96); MEAN PLT VOLUME 7.6 fl (7.5-11.1); PLATELET COUNT 326 K/MM3 (134-434); RDW 13.8 % (11.6-15.6)
[2017-05-30 08:31] LABS: ALBUMIN 3.4 g/dl (3.4-5.0); ANION GAP 5 (8-16); CALCIUM 8.8 mg/dL (8.5-10.1); CO2 30 mmol/L (21-32); GLUCOSE,RANDOM 93 mg/dL (74-106); MAGNESIUM 2.3 mg/dL (1.8-2.4)
[2017-05-30 08:36] LABS: ALK PHOS 77 U/L (45-117); BILIRUBIN,TOTAL 1.4 mg/dL (0.2-1.0); CREATININE 0.8 mg/dL (0.55-1.02); SGOT/AST 30 U/L (15-37); SGPT/ALT 66 U/L (12-78); TOT PROT 6.4 g/dl (6.4-8.2)
[2017-05-30 08:50] LABS: INR 2.58 (0.82-1.09); PROTHROMBIN TIME (PATIENT) 28.9 SEC (9.98-11.88)
[2017-05-30 10:21] VITALS: BP 123/62; PULSE 86; TEMP 98
--- NOTE | 2017-05-30 11:36 | DS ---
Physical Examination Vital Signs: Vital Signs Temperature 98 F 05/30/17 10:18 Pulse Rate 86 05/30/17 10:18 Respiratory Rate 18 05/30/17 10:18 Blood Pressure 123/62 05/30/17 10:18 O2 Sat by Pulse Oximetry (%) 96 05/29/17 20:16 Constitutional: Yes: Well Nourished, No Distress Eyes: Yes: WNL HENT: Yes: WNL Neck: Yes: WNL Cardiovascular: Yes: Murmur Respiratory: Yes: WNL Gastrointestinal: Yes: WNL Renal/: Yes: WNL Musculoskeletal: Yes: WNL Extremities: Yes: WNL Edema: No Peripheral Pulses WNL: Yes Integumentary: Yes: WNL Wound/Incision: Yes: Clean/Dry Neurological: Yes: WNL ...Motor Strength: WNL Psychiatric: Yes: WNL Labs: CBC, BMP 05/30/17 07:30 05/30/17 07:30 Discharge Summary Reason For Visit: SUBTHERAPEUTIC INR Current Active Problems Dyskinesia of gallbladder (Acute) Fatty liver (Acute) Gastroparesis (Acute) Nausea & vomiting (Acute) Supratherapeutic international normalized ratio (INR) (Acute) Procedures: Principal: SONO OF ABDOMEN/LABS Hospital Course: ADMITTED FOR INR ELEVATION/ABD PAIN/NAUSEA AND VOMITING, TREATED IVF, PAIN MEDS , SONO NO ACUTE CHANGES, INR NOW THERAPEUTIC, WILL FOLLOW UP WITH HER PMD DR POWELL FRIDAY FOR INR CHECK. Condition: Stable - Instructions Diet, Activity, Other Instructions: LOW SODIUM SEE DR POWELL FRIDAY RESTART COUMADIN TONIGHT Referrals: Jaqueline Powell [Primary Care Provider] - Disposition: HOME - Home Medications Comprehensive Discharge Medication List: Ambulatory Orders Propranolol HCl [Inderal -] 60 mg PO DAILY 02/10/17 Vortioxetine Hydrobromide [Trintellix] 5 mg PO DAILY 02/10/17 Warfarin Na [Coumadin -] 4 mg PO DAILY 05/28/17
--- NOTE | 2017-05-30 12:04 | PN ---
Progress Note (short form) - Note Progress Note: Patient seen and examined. she states she is tired, could not sleep well last night. pain controlled. wanted to go home. General: NAD HEENT: Normal Abdomen: normal Lungs: CTA Extremities: no swelling Current Medications Generic Name Dose Route Start Last Admin Trade Name Freq PRN Reason Stop Dose Admin Ondansetron HCl 4 mg 05/28/17 16:25 Zofran Odt - SL Q6H PRN NAUSEA AND/OR VOMITING Oxycodone HCl 5 mg 05/28/17 16:21 05/29/17 10:30 Roxicodone - PO 5 mg Q6H PRN Administration PAIN CBC, BMP 05/29/17 06:00 05/29/17 06:00 INR, PTT INR 6.65 (0.82-1.09) H* 05/29/17 06:00 Last Vital Signs Temp Pulse Resp BP Pulse Ox 97.6 F 63 20 107/49 96 05/29/17 06:00 05/29/17 06:00 05/29/17 06:00 05/29/17 06:00 05/29/17 05:20 Supratherapeutic INR (pt on coumadin for Mechanical valve) Recent diagnosis of gastroparesis -INR within therapeutic -re-start coumadin -will need close INR f/u on friday (she mentioned that she goes to ). -dietary counselling re-iterated. Problem List - Problems (1) Supratherapeutic international normalized ratio (INR) Code(s): R79.1 - ABNORMAL COAGULATION PROFILE (2) Aortic regurgitation Code(s): I35.1 - NONRHEUMATIC AORTIC (VALVE) INSUFFICIENCY (3) Coagulopathy Code(s): D68.9 - COAGULATION DEFECT, UNSPECIFIED
[2017-06-01 10:07] LABS: LAC INTERPRETATION Comment: (.); PTT-LA MIX 64.2 sec (0.0-48.9)
== END 2017-05-30 11:52 | disposition home or self-care (01) | DRG 948 ==
LOC: JER 09:21 → JERBED 12:17 → J5S 14:07 → OBSVTOIN 05-29 10:18
PROVIDERS: ADMIT Family Medicine; ATTEND Family Medicine
DX: R79.1 Abnormal coagulation profile (principal); D68.9 Coagulation defect, unspecified; I35.1 Nonrheumatic aortic (valve) insufficiency; K76.0 Fatty (change of) liver, not elsewhere classified; R11.2 Nausea with vomiting, unspecified; I10 Essential (primary) hypertension; F41.9 Anxiety disorder, unspecified; K31.84 Gastroparesis
CPT/HCPCS: 36415; 76700-TC; 80048; 80053; 83690; 83735; 85025; 85027; 85610; 85613; 85730; 85732; 99283-25; G0378

== ENCOUNTER 2017-07-11 15:33 | Emergency (ER) | payer BC ==
[2017-07-11 15:40] VITALS: BMI 32.8
--- NOTE | 2017-07-11 16:23 | PDOC ---
History of Present Illness - General Chief Complaint: Revisit, Lab Variance Stated Complaint: LAB VARIANCE (PCP SENT) Time Seen by Provider: 07/11/17 15:53 History Source: Patient Exam Limitations: No Limitations - History of Present Illness Initial Comments: 07/11/17 16:03 57-year-old female sent over by her primary care physician Dr. Powell for evaluation of elevated potassium and elevated INR which was collected 2 days ago. Patient states initially went to her doctor with complaints of dry cough, nausea, and generalized headache. Patient had lab work done which revealed the above. Patient states history of valve replacement currently on Coumadin, gout, migraine, fatty liver, and gastroparesis. Timing/Duration: 24 hours Severity: mild Associated Symptoms: reports: cough, headaches, nausea/vomiting (nausea). denies: weakness Past History - Travel Traveled outside of the country in the last 30 days: No Close contact w/someone who was outside of country & ill: No - Past Medical History Allergies/Adverse Reactions: Allergies Allergy/AdvReac Type Severity Reaction Status Date / Time No Known Allergies Allergy Verified 07/11/17 15:40 Home Medications: Ambulatory Orders Propranolol HCl [Inderal -] 60 mg PO DAILY 02/10/17 Vortioxetine Hydrobromide [Trintellix] 5 mg PO DAILY 02/10/17 Warfarin Na [Coumadin -] 4 mg PO DAILY 05/28/17 Cardiac Disorders: Yes (thoracic aortic aneurysm,recent htm, and h/o tacchycardia) CVA: No CHF: Yes Dementia: No Diabetes: No GI Disorders: Yes (gastroparesis diagnosed february 2017,) Disorders: No HTN: No Hypercholesterolemia: No Liver Disease: No Seizures: No Thyroid Disease: No - Surgical History Abdominal Surgery: Yes Appendectomy: No Cardiac Surgery: Yes (ANEURYSM REPAIR, VALVE aortic aneurysm repair and aortic valve replaced in) Cholecystectomy: No Orthopedic Surgery: No - Immunization History Immunization Up to Date: Yes - Suicide/Smoking/Psychosocial Hx Smoking Status: No Smoking History: Never smoked Have you smoked in the past 12 months: No Number of Cigarettes Smoked Daily: 0 Cigars Per Day: 0 Information on smoking cessation initiated: No Hx Alcohol Use: No Drug/Substance Use Hx: No Substance Use Type: None Hx Substance Use Treatment: No Patient Lives Alone: No Lives with/in: spouse/SO Review of Systems - Review of Systems Able to Perform ROS?: Yes Constitutional: Yes: Weakness HEENTM: No: Symptoms Reported Respiratory: Yes: Cough (dry) Cardiac (ROS): No: Chest Pain ABD/GI: Yes: Nausea. No: Constipated, Diarrhea, Poor Appetite, Vomiting, Abdominal cramping : No: Symptoms Reported Musculoskeletal: No: Symptoms Reported Integumentary: No: Symptoms Reported Neurological: Yes: Headache (generalized mild aching) Endocrine: No: Symptoms Reported Hematologic/Lymphatic: No: Symptoms Reported *Physical Exam - Vital Signs Last Vital Signs Temp Pulse Resp BP Pulse Ox 98.1 F 95 H 18 150/80 100 07/11/17 15:37 07/11/17 15:37 07/11/17 15:37 07/11/17 15:37 07/11/17 15:37 - Physical Exam General Appearance: Yes: Nourished, Appropriately Dressed. No: Apparent Distress HEENT: positive: Pharynx Normal (dry). negative: Pale Conjunctivae Neck: positive: Normal Thyroid, Supple Respiratory/Chest: positive: Lungs Clear, Normal Breath Sounds. negative: Respiratory Distress, Accessory Muscle Use Cardiovascular: positive: Regular Rhythm, Regular Rate. negative: Murmur Gastrointestinal/Abdominal: positive: Soft. negative: Tenderness Extremity: positive: Normal Capillary Refill. negative: Pedal Edema Integumentary: positive: Normal Color, Warm, Moist Neurologic: positive: Normal Mood/Affect, Motor Strength 5/5 (ambulatory) Heart Score/ECG Review - ECG Intrepretation Rhythm: Regular Rhythm (normal sinus rhythm with a rate of 73) ED Treatment Course - LABORATORY CBC & Chemistry Diagram: 07/11/17 16:31 07/11/17 16:31 Medical Decision Making - Medical Decision Making 07/11/17 16:49 Patient here for evaluation of elevated potassium and elevated INR. Patient states was told her to come by Dr. Powell for evaluation. Patient also has complaints of nausea, headache, and dry cough. Patient ordered for labs, IV fluids, IV Toradol, urine, and EKG. 07/11/17 18:31 Laboratory Tests 07/11/17 07/11/17 07/11/17 16:31 16:31 16:31 WBC 10.7 H D Hgb 12.9 Hct 38.1 Plt Count 361 PT with INR 21.50 H INR 1.90 H D Sodium 139 Potassium 4.4 Chloride 103 Carbon Dioxide 30 Anion Gap 6 L BUN 11 Creatinine 0.9 Random Glucose 102 Calcium 9.0 Magnesium 2.3 Total Bilirubin 0.7 D AST 23 D ALT 46 D Alkaline Phosphatase 90 Creatine Kinase 241 H Creatine Kinase Index 0.4 Troponin I < 0.02 ua pending. Pt receiving IVF. Junior WNL. INR sub therapeutic *DC/Admit/Observation/Transfer Diagnosis at time of Disposition: Subtherapeutic anticoagulation, Migraine - Referrals Referrals: Jaqueline Powell [Staff Physician] - Scott Hogue MD [Primary Care Provider] - - Patient Instructions Printed Discharge Instructions: DI for Migraine Additional Instructions: You have a migraine. Your testing today showed an INR level that was low. It was 1.9 today. Your given a dose of Lovenox and 5 mg of Coumadin. Please take 5 mg of Coumadin tomorrow. Please return Friday or Friday to have a PT INR drawn. A prescription should' ve been sent to the lab upstairs. If there is no prescription please return to the emergency department for lab work. Please call your primary care doctor's office tomorrow Please take Tylenol for the next 24 hours every 4-6 hours not to exceed 4 mg a day. This will help with the migraine Please drink plenty of fluids Return to the emergency department if you have worsening headaches, weakness, chills, fatigue,chest pain, shortness of breath, or any changes in your symptoms ,
[2017-07-11 17:25] LABS: BASOPHIL 0.8 % (0-2.0); EOSINOPHIL 1.6 % (0-4.5); MCH 28.3 pg (25.7-33.7); MCHC 33.9 g/dl (32.0-36.0); MEAN CELL VOLUME 83.5 fl (80-96); MEAN PLT VOLUME 8.3 fl (7.5-11.1); NEUTROPHILS 68.1 % (42.8-82.8); PLATELET COUNT 361 K/MM3 (134-434); RDW 13.8 % (11.6-15.6); WHITE BLOOD COUNT 10.7 K/mm3 (4.0-10.0)
[2017-07-11 17:38] LABS: INR 1.9 (0.82-1.09); PROTHROMBIN TIME (PATIENT) 21.5 SEC (9.98-11.88)
[2017-07-11] MEDS ORDERED: KETOROLAC TROMETHAMINE 30 MG/1 ML VIAL IVPUSH ONE (17:41)
[2017-07-11] MEDS ORDERED: SODIUM CHLORIDE 1,000 ML IV STA (17:41)
[2017-07-11 17:42] LABS: URINE APPEARANCE CLEAR; URINE BILIRUBIN NEGATIVE (NEGATIVE); URINE BLOOD NEGATIVE (NEGATIVE); URINE COLOR STRAW; URINE GLUCOSE (UA) NEGATIVE (NEGATIVE); URINE KETONE NEGATIVE (NEGATIVE); URINE NITRITE NEGATIVE (NEGATIVE); URINE PROTEIN NEGATIVE (NEGATIVE); URINE UROBILINOGEN NEGATIVE mg/dL (0.2-1.0)
[2017-07-11] MEDS ORDERED: KETOROLAC TROMETHAMINE 30 MG/1 ML VIAL ONE (17:50)
[2017-07-11 17:57] LABS: ALBUMIN 3.7 g/dl (3.4-5.0); ANION GAP 6 (8-16); BILIRUBIN,TOTAL 0.7 mg/dL (0.2-1.0); CO2 30 mmol/L (21-32); CREATININE 0.9 mg/dL (0.55-1.02); GLUCOSE,RANDOM 102 mg/dL (74-106); MAGNESIUM 2.3 mg/dL (1.8-2.4); SGOT/AST 23 U/L (15-37); SGPT/ALT 46 U/L (12-78)
[2017-07-11 18:01] LABS: ALK PHOS 90 U/L (45-117); CPK 241 IU/L (26-192); TOT PROT 6.8 g/dl (6.4-8.2); TROPONIN I < 0.02 ng/ml (0.00-0.05)
--- NOTE | 2017-07-11 19:30 | PDOC ---
*Physical Exam - Vital Signs Last Vital Signs Temp Pulse Resp BP Pulse Ox 98.6 F 75 18 140/78 99 07/11/17 18:14 07/11/17 18:14 07/11/17 18:14 07/11/17 18:14 07/11/17 18:14 <Darcy Cobos - Last Filed: 07/11/17 21:34> - Vital Signs Last Vital Signs Temp Pulse Resp BP Pulse Ox 98.6 F 75 18 140/78 99 07/11/17 18:14 07/11/17 18:14 07/11/17 18:14 07/11/17 18:14 07/11/17 18:14 <EdVita - Last Filed: 07/11/17 22:00> ED Treatment Course - LABORATORY CBC & Chemistry Diagram: 07/11/17 16:31 07/11/17 16:31 - ADDITIONAL ORDERS Additional order review: Laboratory Results 07/11/17 07/11/17 07/11/17 16:45 16:31 16:31 PT with INR 21.50 H INR 1.90 H D Sodium 139 Potassium 4.4 Chloride 103 Carbon Dioxide 30 Anion Gap 6 L BUN 11 Creatinine 0.9 Creat Clearance w eGFR > 60 Random Glucose 102 Calcium 9.0 Magnesium 2.3 Total Bilirubin 0.7 D AST 23 D ALT 46 D Alkaline Phosphatase 90 Creatine Kinase 241 H Creatine Kinase Index 0.4 CK-MB (CK-2) < 1.000 Troponin I < 0.02 Total Protein 6.8 Albumin 3.7 Urine Color Straw Urine Appearance Clear Urine pH 7.0 D Urine Protein Negative Urine Glucose (UA) Negative Urine Ketones Negative Urine Blood Negative Urine Nitrite Negative Urine Bilirubin Negative Urine Urobilinogen Negative 07/11/17 16:31 RBC 4.57 MCV 83.5 MCHC 33.9 RDW 13.8 MPV 8.3 Neutrophils % 68.1 Lymphocytes % 23.5 Monocytes % 6.0 Eosinophils % 1.6 Basophils % 0.8 - Medications Given in the ED: ED Medications Discontinued Medications Generic Name Dose Route Start Last Admin Trade Name Freq PRN Reason Stop Dose Admin Sodium Chloride 1,000 mls @ 1,000 mls/hr 07/11/17 17:41 07/11/17 17:47 Normal Saline - IV 07/11/17 18:40 1,000 mls/hr ASDIR STA Administration Ketorolac Tromethamine 30 mg 07/11/17 17:41 07/11/17 17:59 Toradol Injection - IVPUSH 07/11/17 17:42 30 mg ONCE ONE Administration <Darcy Cobos - Last Filed: 07/11/17 21:34> - LABORATORY CBC & Chemistry Diagram: 07/11/17 16:31 07/11/17 16:31 - ADDITIONAL ORDERS Additional order review: Laboratory Results 07/11/17 07/11/17 16:31 16:31 PT with INR 21.50 H INR 1.90 H D Sodium 139 Potassium 4.4 Chloride 103 Carbon Dioxide 30 Anion Gap 6 L BUN 11 Creatinine 0.9 Creat Clearance w eGFR > 60 Random Glucose 102 Calcium 9.0 Magnesium 2.3 Total Bilirubin 0.7 D AST 23 D ALT 46 D Alkaline Phosphatase 90 Creatine Kinase 241 H Creatine Kinase Index 0.4 CK-MB (CK-2) < 1.000 Troponin I < 0.02 Total Protein 6.8 Albumin 3.7 07/11/17 16:31 RBC 4.57 MCV 83.5 MCHC 33.9 RDW 13.8 MPV 8.3 Neutrophils % 68.1 Lymphocytes % 23.5 Monocytes % 6.0 Eosinophils % 1.6 Basophils % 0.8 - Medications Given in the ED: ED Medications Discontinued Medications Generic Name Dose Route Start Last Admin Trade Name Freq PRN Reason Stop Dose Admin Sodium Chloride 1,000 mls @ 1,000 mls/hr 07/11/17 17:41 07/11/17 17:47 Normal Saline - IV 07/11/17 18:40 1,000 mls/hr ASDIR STA Administration Ketorolac Tromethamine 30 mg 07/11/17 17:41 07/11/17 17:59 Toradol Injection - IVPUSH 07/11/17 17:42 30 mg ONCE ONE Administration <Vita Ward - Last Filed: 07/11/17 22:00> Medical Decision Making - Medical Decision Making 07/11/17 20:48 Dr. Powell was paged and notified via phone service. Second call was paged at 21:34. <Darcy Cobos - Last Filed: 07/11/17 21:34> *DC/Admit/Observation/Transfer <Darcy Cobos - Last Filed: 07/11/17 21:34> - Discharge Dispostion Admit: No <Vita Ward - Last Filed: 07/11/17 22:00> Diagnosis at time of Disposition: Subtherapeutic anticoagulation Migraine Qualifiers: Migraine type: unspecified Status migrainosus presence: without status migrainosus Intractability: not intractable Qualified Code(s): G43.909 - Migraine, unspecified, not intractable, without status migrainosus; G43.909 - Migraine, unspecified, not intractable, without status migrainosus; G43.909 - Migraine, unspecified, not intractable, without status migrainosus - Discharge Dispostion Disposition: HOME Condition at time of disposition: Improved - Referrals Referrals: Scott Hogue MD [Primary Care Provider] - Jaqueline Powell [Staff Physician] - - Patient Instructions Printed Discharge Instructions: DI for Migraine Additional Instructions: You have a migraine. Your testing today showed an INR level that was low. It was 1.9 today. Your given a dose of Lovenox and 5 mg of Coumadin. Please take 5 mg of Coumadin tomorrow. Please return Friday or Friday to have a PT INR drawn. A prescription should' ve been sent to the lab upstairs. If there is no prescription please return to the emergency department for lab work. Please call your primary care doctor's office tomorrow Please take Tylenol for the next 24 hours every 4-6 hours not to exceed 4 mg a day. This will help with the migraine Please drink plenty of fluids Return to the emergency department if you have worsening headaches, weakness, chills, fatigue,chest pain, shortness of breath, or any changes in your symptoms ,
[2017-07-11] MEDS ORDERED: METOCLOPRAMIDE HCL INJECTION 10 MG/2 ML VIAL IVPUSH ONE (20:34)
[2017-07-11] MEDS ORDERED: METOCLOPRAMIDE HCL INJECTION 10 MG/2 ML VIAL ONE (21:23)
[2017-07-11 21:32] LABS: URINE LEUK ESTERASE Negative (NEGATIVE)
[2017-07-11] MEDS ORDERED: WARFARIN NA 5 MG TABLET (UD) PO ONE (21:47)
[2017-07-11] MEDS ORDERED: ENOXAPARIN NA (PORCINE) 80 MG/0.8 ML DISP.SYRIN SQ SCH (22:00)
[2017-07-11] MEDS ORDERED: ENOXAPARIN NA (PORCINE) 80 MG/0.8 ML DISP.SYRIN SQ ONE (22:03)
[2017-07-11] MEDS ORDERED: WARFARIN NA 5 MG TABLET (UD) ONE (22:03)
[2017-07-11 22:19] VITALS: BP 130/61; PULSE 71; TEMP 98
--- NOTE | 2017-07-12 09:36 | EKG ---
Test Reason : Blood Pressure : / mmHG Vent. Rate : 073 BPM Atrial Rate : 073 BPM P-R Int : 168 ms QRS Dur : 092 ms QT Int : 418 ms P-R-T Axes : 010 -49 003 degrees QTc Int : 460 ms NORMAL SINUS RHYTHM LEFT ANTERIOR FASCICULAR BLOCK MINIMAL VOLTAGE CRITERIA FOR LVH, MAY BE NORMAL VARIANT SEPTAL INFARCT (CITED ON OR BEFORE 30-DEC-2016) ABNORMAL ECG WHEN COMPARED WITH ECG OF 10-FEB-2017 14:42, NO SIGNIFICANT CHANGE WAS FOUND Confirmed by SARITA SUAREZ, LORA ([id number]) on 07/12/2017 9:35:53 AM Referred By: Confirmed By:LORA STEIN MD
== END 2017-07-11 22:19 | disposition home or self-care (01) ==
LOC: JER 15:33
PROC: 3E0337Z Introduction of Electrolytic and Water Balance Substance into Peripheral Vein, Percutaneous Approach (ICD-10-PCS; principal; 2017-07-11)
PROC: 3E033GC Introduction of Other Therapeutic Substance into Peripheral Vein, Percutaneous Approach (ICD-10-PCS; 2017-07-11)
PROC: 3E033GC Introduction of Other Therapeutic Substance into Peripheral Vein, Percutaneous Approach (ICD-10-PCS; 2017-07-11)
PROC: 3E0333Z Introduction of Anti-inflammatory into Peripheral Vein, Percutaneous Approach (ICD-10-PCS; 2017-07-11)
PROC: 3E013GC Introduction of Other Therapeutic Substance into Subcutaneous Tissue, Percutaneous Approach (ICD-10-PCS; 2017-07-11)
DX: D68.8 Other specified coagulation defects (principal); Z79.01 Long term (current) use of anticoagulants; G43.909 Migraine, unspecified, not intractable, without status migrainosus; Z95.2 Presence of prosthetic heart valve; K31.84 Gastroparesis
CPT/HCPCS: 36415; 80053; 81003; 82550; 82553; 83735; 84484; 85025; 85610; 93005; 93010; 99283-25

== ENCOUNTER 2017-10-17 15:42 | Emergency (ER) | payer BC ==
--- NOTE | 2017-10-17 16:08 | PDOC ---
Rapid Medical Evaluation Time Seen by Provider: 10/17/17 16:06 Medical Evaluation: Allergies Allergy/AdvReac Type Severity Reaction Status Date / Time No Known Allergies Allergy Verified 07/11/17 15:40 I have performed a brief in-person evaluation of this patient. The patient presents with a chief complaint of: head trauma with subsequent dizziness. No LOC. No vomiting Pertinent physical exam findings: Hematoma to top of head; pt on Coumadin I have ordered the following: Head CT The patient will proceed to the ED for further evaluation.
[2017-10-17 16:09] VITALS: BP 157/85; PULSE 93; TEMP 98.5; BMI 31.4
--- NOTE | 2017-10-17 17:26 | PDOC ---
History of Present Illness - General Chief Complaint: Injury Stated Complaint: HEAD INJURY Time Seen by Provider: 10/17/17 16:06 History Source: Patient Exam Limitations: No Limitations - History of Present Illness Initial Comments: 10/17/17 17:25 57 yr female with c/o head injury at work today, pt states she dropped something and stood up and hit the top of her head on the narcotic box at work. 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 Pt takes coumadin for valve disorder. no vision changes. 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 10/17/17 17:27 10/17/17 18:19 Loss of Consciousness: no loss of consciousness Past History - Past Medical History Allergies/Adverse Reactions: Allergies Allergy/AdvReac Type Severity Reaction Status Date / Time No Known Allergies Allergy Verified 10/17/17 16:09 Home Medications: Ambulatory Orders Warfarin Na [Coumadin -] 4 mg PO DAILY 05/28/17 Citalopram Hydrobromide [Celexa -] 20 mg PO DAILY 10/17/17 Nortriptyline HCl [Pamelor -] 25 mg PO DAILY 10/17/17 Pantoprazole Sodium [Protonix -] 40 mg PO DAILY 10/17/17 Cardiac Disorders: Yes (thoracic aortic aneurysm,recent htm, and h/o tacchycardia) CVA: No COPD: No CHF: Yes Dementia: No Diabetes: No GI Disorders: Yes (gastroparesis diagnosed february 2017,) Disorders: No HTN: No Hypercholesterolemia: No Liver Disease: No Seizures: No Thyroid Disease: No - Surgical History Abdominal Surgery: Yes Appendectomy: No Cardiac Surgery: Yes (ANEURYSM REPAIR, VALVE aortic aneurysm repair and aortic valve replaced in) Cholecystectomy: No Orthopedic Surgery: No - Immunization History Immunization Up to Date: Yes - Suicide/Smoking/Psychosocial Hx Smoking Status: No Smoking History: Never smoked Have you smoked in the past 12 months: No Number of Cigarettes Smoked Daily: 0 Cigars Per Day: 0 Information on smoking cessation initiated: No Hx Alcohol Use: No Drug/Substance Use Hx: No Substance Use Type: None Hx Substance Use Treatment: No Trauma Specific PMHX - Complaint Specific PMHX Arthritis: No *Physical Exam - Vital Signs Last Vital Signs Temp Pulse Resp BP Pulse Ox 98.5 F 93 H 18 157/85 98 10/17/17 16:07 10/17/17 16:07 10/17/17 16:07 10/17/17 16:07 10/17/17 16:07 - Physical Exam General Appearance: Yes: Nourished, Appropriately Dressed HEENT: positive: EOMI, SHREE, Normal ENT Inspection, TMs Normal, Pharynx Normal Neck: positive: Supple. negative: Tender lateral, Tender midline Respiratory/Chest: positive: Lungs Clear, Normal Breath Sounds Cardiovascular: positive: Regular Rhythm, Regular Rate Musculoskeletal: positive: Normal Inspection. negative: Vertebral Tenderness Extremity: positive: Normal Capillary Refill, Normal Inspection, Normal Range of Motion Integumentary: positive: Normal Color, Dry, Warm, Bruising (parietal area with bruising , skin intact no palpable bony crepitus) Neurologic: positive: Fully Oriented, Alert, Normal Mood/Affect, Normal Response , Motor Strength 5/5 Medical Decision Making - Medical Decision Making 10/17/17 18:19 cc: hit top of head on cabinet no LOC no nausea vomiting or dizzyness pt on coumadin last INR checked 2 weeks ago states was therapeutic pt has "bump" to top of head no palpable skull fracture CT ordered from E pt 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 pt stable on discharge, using cell phone no distress CT s negative discussed with the radiologist pt aware of the plan of care all questions asked and answered pt will follow with her doctor on Friday for a follow up exam, pt knows to return to ER if worse *DC/Admit/Observation/Transfer Diagnosis at time of Disposition: Scalp hematoma Qualifiers: Encounter type: initial encounter Qualified Code(s): S00.03XA - Contusion of scalp, initial encounter - Discharge Dispostion Disposition: HOME Condition at time of disposition: Good - Referrals Referrals: Jaqueline Powell [Primary Care Provider] - - Patient Instructions Printed Discharge Instructions: DI for Closed Head Injury Additional Instructions: tylenol 650mg every 4-6hrs for pain apply a cool compress or an ice pack to the top fo your head every 2hrs for 15 minutes please follow with your doctor in FRIDAY for follow up the cat scan today was normal there is no evidence of bleeding in the brain return to ER for any worsening pain, changes in your neuro status or any other concerns - Post Discharge Activity
== END 2017-10-17 18:35 | disposition home or self-care (01) ==
LOC: JERFT 15:42
DX: S00.83XA Contusion of other part of head, initial encounter (principal); W22.8XXA Striking against or struck by other objects, initial encounter; Y93.89 Activity, other specified; Y92.118 Other place in children's home and orphanage as the place of occurrence of the external cause; Y99.0 Civilian activity done for income or pay; Z95.2 Presence of prosthetic heart valve; Z79.01 Long term (current) use of anticoagulants
CPT/HCPCS: 70450-TC; 99281-25

== ENCOUNTER 2017-12-31 20:30 | Emergency (ER) | payer BC ==
[2017-12-31 20:36] VITALS: BMI 31.7
[2017-12-31] MEDS ORDERED: ASPIRIN 81 MG CHEWABLE TABLETS PO ONE (20:37)
--- NOTE | 2017-12-31 20:37 | PDOC ---
Rapid Medical Evaluation Time Seen by Provider: 12/31/17 20:33 Medical Evaluation: Allergies Allergy/AdvReac Type Severity Reaction Status Date / Time No Known Allergies Allergy Verified 10/17/17 16:09 12/31/17 20:34 I have performed a brief in-person evaluation of this patient. The patient presents with a chief complaint of: chest pain since this morning, "pressure", denies SOB, "maybe some slight edema" to b/l legs, pain to L side of jaw/neck, had aneurysm repair 12 years ago, on coumadin Pertinent physical exam findings: well appearing, lungs ctab I have ordered the following: cardiac workup The patient will proceed to the ED for further evaluation. Discharge Disposition - Diagnosis Chest pain - Referrals - Patient Instructions - Post Discharge Activity
[2017-12-31] MEDS ORDERED: ASPIRIN 81 MG CHEWABLE TABLETS ONE (21:35)
[2017-12-31 21:38] LABS: BASO % 0.6 % (0-2.0); EOS % 1.6 % (0-4.5); HEMATOCRIT 37.1 % (32.4-45.2); HEMOGLOBIN 13.1 GM/dL (10.7-15.3); LYMPH % 25.4 % (8-40); MCH 29.5 pg (25.7-33.7); MCHC 35.3 g/dl (32.0-36.0); MEAN CELL VOLUME 83.5 fl (80-96); MEAN PLT VOLUME 7.8 fl (7.5-11.1); MONO % 5.5 % (3.8-10.2); NEUT % 66.9 % (42.8-82.8); PLATELET COUNT 402 K/MM3 (134-434); RBC 4.44 M/mm3 (3.60-5.2); RDW 13.7 % (11.6-15.6)
[2017-12-31 21:47] LABS: INR 3.66 (0.82-1.09); PROTHROMBIN TIME (PATIENT) 41.4 SEC (9.98-11.88)
[2017-12-31 22:18] LABS: ALBUMIN 3.7 g/dl (3.4-5.0); ANION GAP 3 (8-16); BILIRUBIN,TOTAL 0.5 mg/dL (0.2-1.0); BLOOD UREA NITROGEN 15 mg/dL (7-18); CALCIUM 8.6 mg/dL (8.5-10.1); CHLORIDE 107 mmol/L (98-107); CO2 30 mmol/L (21-32); CREATININE 0.9 mg/dL (0.55-1.02); GLUCOSE,RANDOM 119 mg/dL (74-106); MAGNESIUM 2.1 mg/dL (1.8-2.4); POTASSIUM 4.1 mmol/L (3.5-5.1); SGOT/AST 20 U/L (15-37); SGPT/ALT 48 U/L (12-78); SODIUM 140 mmol/L (136-145)
[2017-12-31 22:21] LABS: ALK PHOS 104 U/L (45-117)
--- NOTE | 2017-12-31 22:24 | PDOC ---
History of Present Illness - General History Source: Patient Exam Limitations: No Limitations - History of Present Illness Initial Comments: 12/31/17 22:30 The patient is a 57-year-old female, with a significant past medical history of aortic aneurysm repair, with midsternal chest pain that began this morning. The patient's pain is nonexertional and pressure-like in sensation. She reports having an episode where the pressure went up to the right side of her neck and face. The patient continues to have this pressure. Her last Rn Procedure was Dr. Steward and her current PCP is Dr. Jaqueline Powell. pressure all day. Denies fever, chills, nausea, vomiting, diarrhea, or abdominal pain. Denies any diaphoresis. Denies any recent travel. PCP: Dr. Jaqueline Powell <Darcy Cobos - Last Filed: 01/01/18 01:48> - General History Source: Patient <NakulJerad reese - Last Filed: 01/01/18 02:07> - General Chief Complaint: Chest Pain Stated Complaint: CHEST PAIN Time Seen by Provider: 12/31/17 20:33 Past History <Darcy Cobos - Last Filed: 01/01/18 01:48> - Past Medical History Cardiac Disorders: Yes (thoracic aortic aneurysm,recent htm, and h/o tacchycardia) CVA: No COPD: No CHF: Yes Dementia: No Diabetes: No GI Disorders: Yes (gastroparesis diagnosed february 2017,) Disorders: No HTN: No Hypercholesterolemia: No Liver Disease: No Seizures: No Thyroid Disease: No - Surgical History Abdominal Surgery: Yes Appendectomy: No Cardiac Surgery: Yes (ANEURYSM REPAIR, VALVE aortic aneurysm repair and aortic valve replaced in) Cholecystectomy: No Orthopedic Surgery: No - Immunization History Immunization Up to Date: Yes - Suicide/Smoking/Psychosocial Hx Smoking Status: No Smoking History: Never smoked Have you smoked in the past 12 months: No Number of Cigarettes Smoked Daily: 0 Cigars Per Day: 0 Information on smoking cessation initiated: No Hx Alcohol Use: No Drug/Substance Use Hx: No Substance Use Type: None Hx Substance Use Treatment: No <Jerad Rust - Last Filed: 01/01/18 02:07> - Past Medical History Allergies/Adverse Reactions: Allergies Allergy/AdvReac Type Severity Reaction Status Date / Time No Known Allergies Allergy Verified 12/31/17 20:37 Home Medications: Ambulatory Orders Warfarin Na [Coumadin -] 4 mg PO DAILY 05/28/17 Citalopram Hydrobromide [Celexa -] 20 mg PO DAILY 10/17/17 Nortriptyline HCl [Pamelor -] 25 mg PO DAILY 10/17/17 Pantoprazole Sodium [Protonix -] 40 mg PO DAILY 10/17/17 Review of Systems - Review of Systems Able to Perform ROS?: Yes Comments:: 12/31/17 22:31 CONSTITUTIONAL: Absent: fever, chills, diaphoresis, generalized weakness, malaise, loss of appetite HEENT: Absent: rhinorrhea, nasal congestion, throat pain, throat swelling, difficulty swallowing, mouth swelling, ear pain, eye pain, visual Changes CARDIOVASCULAR: Present: (+)chest pain Absent: syncope, palpitations, irregular heart rate, lightheadedness, peripheral edema RESPIRATORY: Absent: cough, shortness of breath, dyspnea with exertion, orthopnea, wheezing, stridor, hemoptysis GASTROINTESTINAL: Absent: abdominal pain, abdominal distension, nausea, vomiting, diarrhea, constipation, melena, hematochezia GENITOURINARY: Absent: dysuria, frequency, urgency, hesitancy, hematuria, flank pain, genital pain MUSCULOSKELETAL: Absent: myalgia, arthralgia, joint swelling SKIN: Absent: rash, itching, pallor HEMATOLOGIC/IMMUNOLOGIC: Absent: easy bleeding, easy bruising, lymphadenopathy, frequent infections ENDOCRINE: Absent: unexplained weight gain, unexplained weight loss, heat intolerance, cold intolerance NEUROLOGIC: Absent: headache, focal weakness or paresthesias, dizziness, unsteady gait, seizure, mental status changes, bladder or bowel incontinence PSYCHIATRIC: Absent: anxiety, depression, suicidal or homicidal ideation, hallucinations. <Darcy Cobos - Last Filed: 01/01/18 01:48> *Physical Exam - Vital Signs Last Vital Signs Temp Pulse Resp BP Pulse Ox 98.0 F 86 16 135/97 100 12/31/17 20:35 12/31/17 20:35 12/31/17 20:35 12/31/17 20:35 12/31/17 20:35 - Physical Exam Comments: 12/31/17 22:32 GENERAL: Well developed, well nourished. Awake and alert. No acute distress. HEENT: Normocephalic, atraumatic. PERRLA, EOMI. No conjunctival pallor. Sclera are non- icteric. Moist mucous membranes. Oropharynx is clear. NECK: Supple. Full ROM. No JVD. Carotid pulses 2+ and symmetric, without bruits. No thyromegaly. No lymphadenopathy. CARDIOVASCULAR: (+)Left sternal border whole systolic click. Distal pulses are 2+ and symmetric. PULMONARY: No evidence of respiratory distress. Lungs clear to auscultation bilaterally. No wheezing, rales or rhonchi. ABDOMINAL: Soft. Non-tender. Non-distended. No rebound or guarding. No organomegaly. Normoactive bowel sounds. MUSCULOSKELETAL Normal range of motion at all joints. No bony deformities or tenderness. No CVA tenderness. EXTREMITIES: No cyanosis. No clubbing. No edema. No calf tenderness. SKIN: Warm and dry. Normal capillary refill. No rashes. No jaundice. NEUROLOGICAL: Alert, awake, appropriate. PSYCHIATRIC: Cooperative. Good eye contact. Appropriate mood and affect. <Darcy Cobos - Last Filed: 01/01/18 01:48> - Vital Signs Last Vital Signs Temp Pulse Resp BP Pulse Ox 98.0 F 86 16 135/97 100 12/31/17 20:35 12/31/17 20:35 12/31/17 20:35 12/31/17 20:35 12/31/17 20:35 <Jerad Rust - Last Filed: 01/01/18 02:07> Heart Score/ECG Review - ECG Intrepretation Comment:: 12/31/17 22:41 EKG was reviewed by Dr. Rust at 20:36. Impression: Normal sinus rhythm at 86 bpm. Rightward axis. Septal infarct, age undetermined. <Darcy Cobos - Last Filed: 01/01/18 01:48> ED Treatment Course - LABORATORY CBC & Chemistry Diagram: 12/31/17 21:30 12/31/17 21:30 - ADDITIONAL ORDERS Additional order review: Laboratory Results 12/31/17 12/31/17 21:30 21:30 PT with INR 41.40 H INR 3.66 H Sodium 140 Potassium 4.1 Chloride 107 Carbon Dioxide 30 Anion Gap 3 L BUN 15 Creatinine 0.9 Creat Clearance w eGFR > 60 Random Glucose 119 H Calcium 8.6 Magnesium 2.1 Total Bilirubin 0.5 D AST 20 ALT 48 Alkaline Phosphatase 104 Creatine Kinase 173 Troponin I < 0.02 Total Protein 7.0 Albumin 3.7 12/31/17 21:30 RBC 4.44 MCV 83.5 MCHC 35.3 RDW 13.7 MPV 7.8 Neutrophils % 66.9 Lymphocytes % 25.4 Monocytes % 5.5 Eosinophils % 1.6 Basophils % 0.6 - Medications Given in the ED: ED Medications Discontinued Medications Generic Name Dose Route Start Last Admin Trade Name Freq PRN Reason Stop Dose Admin Aspirin 162 mg 12/31/17 20:37 12/31/17 21:36 Asa - PO 12/31/17 20:38 162 mg ONCE ONE Administration <Darcy Cobos - Last Filed: 01/01/18 01:48> - LABORATORY CBC & Chemistry Diagram: 12/31/17 21:30 12/31/17 21:30 - ADDITIONAL ORDERS Additional order review: Laboratory Results 12/31/17 12/31/17 21:30 21:30 PT with INR 41.40 H INR 3.66 H Sodium 140 Potassium 4.1 Chloride 107 Carbon Dioxide 30 Anion Gap 3 L BUN 15 Creatinine 0.9 Creat Clearance w eGFR > 60 Random Glucose 119 H Calcium 8.6 Magnesium 2.1 Total Bilirubin 0.5 D AST 20 ALT 48 Alkaline Phosphatase 104 Creatine Kinase 173 Troponin I < 0.02 Total Protein 7.0 Albumin 3.7 12/31/17 21:30 RBC 4.44 MCV 83.5 MCHC 35.3 RDW 13.7 MPV 7.8 Neutrophils % 66.9 Lymphocytes % 25.4 Monocytes % 5.5 Eosinophils % 1.6 Basophils % 0.6 - Medications Given in the ED: ED Medications Discontinued Medications Generic Name Dose Route Start Last Admin Trade Name Freq PRN Reason Stop Dose Admin Aspirin 162 mg 12/31/17 20:37 12/31/17 21:36 Asa - PO 12/31/17 20:38 162 mg ONCE ONE Administration <Jerad Rust - Last Filed: 01/01/18 02:07> Medical Decision Making - Medical Decision Making 01/01/18 02:04 Dr. Rust: The scribe's documentation has been prepared under my direction and personally reviewed by me in its entirery. I confirm that the note above accurately reflects all work, treatment, procedures, and medical decision making performed by me. Ct scan of aorta and labs returned to be negative. Pt feels better. Will discharge. 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 <Jerad Rust - Last Filed: 01/01/18 02:07> *DC/Admit/Observation/Transfer - Attestations Scribe Attestion: 12/31/17 22:34 Documentation prepared by Darcy Cobos, acting as medical research assistant for Jerad Rust MD. <Darcy Cobos - Last Filed: 01/01/18 01:48> - Discharge Dispostion Admit: No <Jerad Rust - Last Filed: 01/01/18 02:07> Diagnosis at time of Disposition: Chest pain - Discharge Dispostion Disposition: HOME Condition at time of disposition: Stable - Referrals Referrals: Jaqueline Powell [Primary Care Provider] - Valente Ball MD [Staff Physician] - - Patient Instructions Printed Discharge Instructions: DI for Chest Pain - Post Discharge Activity
[2017-12-31] MEDS ORDERED: morphine CARPU-JECT 2 MG/1 ML DISP.SYRIN IVPUSH ONE (22:31)
[2017-12-31] MEDS ORDERED: ONDANSETRON 4 MG/2 ML VIAL IVPUSH STA (22:31)
[2017-12-31] MEDS ORDERED: ONDANSETRON 4 MG/2 ML VIAL ONE (22:33)
[2017-12-31] MEDS ORDERED: morphine SULFATE 4 MG/ML VIAL ONE (22:33)
[2017-12-31] MEDS ORDERED: ACETAMINOPHEN 325 MG TABLET (FP) ONE (22:36)
[2018-01-01] MEDS ORDERED: morphine CARPU-JECT 2 MG/1 ML DISP.SYRIN IVPUSH ONE (00:42)
[2018-01-01] MEDS ORDERED: MORPHINE SULFATE 10 MG/1 ML *VIAL ONE (01:22)
[2018-01-01 02:36] VITALS: BP 141/72; PULSE 69; TEMP 98.1
--- NOTE | 2018-01-01 11:21 | EKG ---
Test Reason : Blood Pressure : / mmHG Vent. Rate : 072 BPM Atrial Rate : 072 BPM P-R Int : 172 ms QRS Dur : 090 ms QT Int : 452 ms P-R-T Axes : 014 -45 -12 degrees QTc Int : 494 ms NORMAL SINUS RHYTHM LEFT AXIS DEVIATION SEPTAL INFARCT (CITED ON OR BEFORE 30-DEC-2016) ABNORMAL ECG WHEN COMPARED WITH ECG OF 11-JUL-2017 17:07, NO SIGNIFICANT CHANGE WAS FOUND Confirmed by SAUMYA BRYSON MD ([id number]) on 01/01/2018 11:21:25 AM Referred By: Confirmed By:SAUMYA BRYSON MD
--- NOTE | 2018-01-01 11:23 | EKG ---
Test Reason : Blood Pressure : / mmHG Vent. Rate : 086 BPM Atrial Rate : 086 BPM P-R Int : 164 ms QRS Dur : 086 ms QT Int : 398 ms P-R-T Axes : 036 107 037 degrees QTc Int : 476 ms NORMAL SINUS RHYTHM RIGHTWARD AXIS SEPTAL INFARCT (CITED ON OR BEFORE 30-DEC-2016) ABNORMAL ECG WHEN COMPARED WITH ECG OF 11-JUL-2017 17:07, LEFT ANTERIOR FASCICULAR BLOCK IS NO LONGER PRESENT Confirmed by SAUMYA BRYSON MD ([id number]) on 01/01/2018 11:22:53 AM Referred By: Confirmed By:SAUMYA BRYSON MD
== END 2018-01-01 02:36 | disposition home or self-care (01) ==
LOC: JER 20:30
PROC: 3E033NZ Introduction of Analgesics, Hypnotics, Sedatives into Peripheral Vein, Percutaneous Approach (ICD-10-PCS; principal; 2017-12-31)
PROC: 3E033NZ Introduction of Analgesics, Hypnotics, Sedatives into Peripheral Vein, Percutaneous Approach (ICD-10-PCS; 2017-12-31)
PROC: 3E033GC Introduction of Other Therapeutic Substance into Peripheral Vein, Percutaneous Approach (ICD-10-PCS; 2017-12-31)
DX: R07.89 Other chest pain (principal); Z86.79 Personal history of other diseases of the circulatory system; Z79.01 Long term (current) use of anticoagulants; Z95.2 Presence of prosthetic heart valve; K31.84 Gastroparesis; I50.9 Heart failure, unspecified
CPT/HCPCS: 36415; 71046-TC-FY; 71275-TC; 74174-TC; 80053; 82550; 82553; 83735; 84484; 85025; 85610; 93005; 93010; 99284-25

== ENCOUNTER 2018-05-22 15:35 | Inpatient (IN) | payer BC ==
--- NOTE | 2018-05-22 15:37 | PDOC ---
History of Present Illness - General Chief Complaint: Chest Pain Stated Complaint: CHEST PAIN AND PRESSURE Time Seen by Provider: 05/22/18 15:37 - History of Present Illness Beta Pee taken at Home (Core Measure): No Beta Pee Contraindications (Core Measure): Yes: Other (Given in E.D.) Past History - Past Medical History Allergies/Adverse Reactions: Allergies Allergy/AdvReac Type Severity Reaction Status Date / Time No Known Allergies Allergy Verified 12/31/17 20:37 Home Medications: Ambulatory Orders Warfarin Na [Coumadin -] 4 mg PO DAILY 05/28/17 Citalopram Hydrobromide [Celexa -] 20 mg PO DAILY 10/17/17 Nortriptyline HCl [Pamelor -] 25 mg PO DAILY 10/17/17 Pantoprazole Sodium [Protonix -] 40 mg PO DAILY 10/17/17 Cardiac Disorders: Yes (thoracic aortic aneurysm,recent htm, and h/o tacchycardia) CVA: No COPD: No CHF: Yes Dementia: No Diabetes: No GI Disorders: Yes (gastroparesis diagnosed february 2017,) Disorders: No HTN: No Hypercholesterolemia: No Liver Disease: No Seizures: No Thyroid Disease: No - Surgical History Abdominal Surgery: Yes Appendectomy: No Cardiac Surgery: Yes (ANEURYSM REPAIR, VALVE aortic aneurysm repair and aortic valve replaced in) Cholecystectomy: No Orthopedic Surgery: No - Immunization History Immunization Up to Date: Yes - Suicide/Smoking/Psychosocial Hx Smoking Status: No Smoking History: Never smoked Have you smoked in the past 12 months: No Number of Cigarettes Smoked Daily: 0 Cigars Per Day: 0 Hx Alcohol Use: No Drug/Substance Use Hx: No Substance Use Type: None Hx Substance Use Treatment: No Cardiac Specific PMH - Complaint Specific PMHX Angina: No Cardiac Arrhythmia: No GERD: No Pacemaker: No Peripheral Vascular Disease: No
--- NOTE | 2018-05-22 15:48 | PDOC ---
Rapid Medical Evaluation Chief Complaint: Chest Pain Time Seen by Provider: 05/22/18 15:37 Medical Evaluation: Allergies Allergy/AdvReac Type Severity Reaction Status Date / Time No Known Allergies Allergy Verified 05/22/18 15:38 05/22/18 15:45 58 year old female with chest pressure started today with dizziness and palpitations. history of aortic valve repair on coumadin. Patient alert ox3.regular rate breath sounds clear A: chest pain P: labs xray patient to the ER for further management of care. 05/22/18 15:52 Discharge Disposition - Diagnosis Chest pain Qualifiers: Chest pain type: other chest pain Qualified Code(s): R07.89 - Other chest pain - Referrals - Patient Instructions - Post Discharge Activity
--- NOTE | 2018-05-22 15:59 | PDOC ---
History of Present Illness - General Chief Complaint: Chest Pain Stated Complaint: CHEST PAIN AND PRESSURE Time Seen by Provider: 05/22/18 15:37 - History of Present Illness Initial Comments: 05/22/18 15:59 Ms. Swan is a 58 yo female w/ pmh of anxiety, GERD, Aortic Aneurysm repair and Aortic valve replacement who presents for evaluation of chest pain/pressure x1 day. 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 Patient reports that starting today she has had constant midline chest pressure as well unrelieved by position or activity. Patient reports she takes coumadin, amytryptaline, and protonix. The patient denies shortness of breath, headache and dizziness. Denies fever, chills, nausea, vomit, diarrhea and constipation. Denies dysuria, frequency, urgency and hematuria. Allergies: NKDA Past History - Past Medical History Allergies/Adverse Reactions: Allergies Allergy/AdvReac Type Severity Reaction Status Date / Time No Known Allergies Allergy Verified 05/22/18 15:38 Home Medications: Ambulatory Orders Warfarin Na [Coumadin -] 4 mg PO DAILY 05/28/17 Nortriptyline HCl [Pamelor -] 25 mg PO DAILY 10/17/17 Pantoprazole Sodium [Protonix -] 40 mg PO DAILY 10/17/17 Cardiac Disorders: Yes (thoracic aortic aneurysm,recent htm, and h/o tacchycardia) CVA: No COPD: No CHF: Yes Dementia: No Diabetes: No GI Disorders: Yes (gastroparesis diagnosed february 2017,) Disorders: No HTN: No Hypercholesterolemia: No Liver Disease: No Seizures: No Thyroid Disease: No - Surgical History Abdominal Surgery: Yes Appendectomy: No Cardiac Surgery: Yes (ANEURYSM REPAIR, VALVE aortic aneurysm repair and aortic valve replaced in) Cholecystectomy: No Orthopedic Surgery: No - Immunization History Immunization Up to Date: Yes - Suicide/Smoking/Psychosocial Hx Smoking Status: No Smoking History: Never smoked Have you smoked in the past 12 months: No Number of Cigarettes Smoked Daily: 0 Cigars Per Day: 0 Hx Alcohol Use: No Drug/Substance Use Hx: No Substance Use Type: None Hx Substance Use Treatment: No Review of Systems - Review of Systems Comments:: 05/22/18 16:22 GENERAL/CONSTITUTIONAL: No fever or chills. No weakness. HEAD, EYES, EARS, NOSE AND THROAT: No change in vision. No ear pain or discharge. No sore throat. CARDIOVASCULAR: +Midline constant sternal chest pain with occasional tachycardia / palpitations. No shortness of breath RESPIRATORY: No cough, wheezing, or hemoptysis. GASTROINTESTINAL: No nausea, vomiting, diarrhea or constipation. GENITOURINARY: No dysuria, frequency, or change in urination. MUSCULOSKELETAL: No joint or muscle swelling or pain. No neck or back pain. SKIN: No rash NEUROLOGIC: +Current migraine, no vertigo, loss of consciousness, or change in strength/sensation. ENDOCRINE: No increased thirst. No abnormal weight change HEMATOLOGIC/LYMPHATIC: No anemia, easy bleeding, or history of blood clots. ALLERGIC/IMMUNOLOGIC: No hives or skin allergy. *Physical Exam - Vital Signs Last Vital Signs Temp Pulse Resp BP Pulse Ox 98.6 F 85 16 142/89 97 05/22/18 15:42 05/22/18 15:42 05/22/18 15:42 05/22/18 15:42 05/22/18 15:42 - Physical Exam Comments: 05/22/18 16:24 GENERAL: Awake, alert, and fully oriented, in no acute distress HEAD: No signs of trauma, normocephalic, atraumatic EYES: PERRLA, EOMI, sclera anicteric, conjunctiva clear ENT: +Mucous membranes dry appearing. Auricles normal inspection, hearing grossly normal, nares patent, oropharynx clear without exudates. NECK: Normal ROM, supple, no lymphadenopathy, JVD, or masses LUNGS: No distress, speaks full sentences, clear to auscultation bilaterally HEART: +Murmur attributable to aortic mechanical valve; otherwise regular rate and rhythm, normal S1 and S2, peripheral pulses normal and equal bilaterally. ABDOMEN: Soft, nontender, normoactive bowel sounds. No guarding, no rebound. No masses EXTREMITIES: Normal inspection, Normal range of motion, no edema. No clubbing or cyanosis. NEUROLOGICAL: Cranial nerves II through XII grossly intact. Normal speech, normal gait, no focal sensorimotor deficits SKIN: Warm, Dry, normal turgor, no rashes or lesions noted. ED Treatment Course - LABORATORY CBC & Chemistry Diagram: 05/22/18 16:30 05/22/18 16:30 Medical Decision Making - Medical Decision Making 05/22/18 18:29 Ms. Swan is a 58 yo female w/ pmh as described who presents for symptoms concerning for ACS. Patient given fluids and reglan/tylenol for symptomatic relief from headache to some effect. Patient labs concerning for increased INR as below. Patient EKG noted to be grossly unchanged from previous. Upon further discussion with patient; patient reveals she has not had cardiac evaluation ( including echo; cath; etc.) for some time. Will admit patient for further cardiac evaluation to ensure no acute process. Laboratory Results - last 24 hr 05/22/18 05/22/18 05/22/18 16:30 16:30 16:30 WBC 7.5 RBC 4.37 Hgb 12.3 Hct 35.8 MCV 81.9 MCH 28.1 MCHC 34.3 RDW 13.7 Plt Count 326 MPV 7.7 Absolute Neuts (auto) 4.9 Neutrophils % 65.6 Lymphocytes % 24.8 Monocytes % 7.0 Eosinophils % 2.2 Basophils % 0.4 Nucleated RBC % 0 PT with INR 55.70 H INR 4.93 H* Sodium 143 Potassium 3.9 Chloride 106 Carbon Dioxide 27 Anion Gap 10 BUN 14 Creatinine 0.8 Creat Clearance w eGFR > 60 Random Glucose 101 Calcium 8.5 Magnesium 2.1 Total Bilirubin 0.8 AST 21 ALT 42 Alkaline Phosphatase 88 Creatine Kinase 150 Troponin I < 0.02 B-Natriuretic Peptide Total Protein 6.5 Albumin 3.5 TSH 05/22/18 05/22/18 16:30 16:30 WBC RBC Hgb Hct MCV MCH MCHC RDW Plt Count MPV Absolute Neuts (auto) Neutrophils % Lymphocytes % Monocytes % Eosinophils % Basophils % Nucleated RBC % PT with INR INR Sodium Potassium Chloride Carbon Dioxide Anion Gap BUN Creatinine Creat Clearance w eGFR Random Glucose Calcium Magnesium Total Bilirubin AST ALT Alkaline Phosphatase Creatine Kinase Troponin I B-Natriuretic Peptide 82.49 Total Protein Albumin TSH 2.52 *DC/Admit/Observation/Transfer Diagnosis at time of Disposition: Chest pain Qualifiers: Chest pain type: other chest pain Qualified Code(s): R07.89 - Other chest pain - Discharge Dispostion Decision to Admit order: Yes - Referrals Referrals: Jaqueline Powell [Primary Care Provider] - - Patient Instructions - Post Discharge Activity
--- NOTE | 2018-05-22 16:18 | PDOC ---
Attending Attestation - HPI HPI: 05/22/18 18:02 The patient is a 58-year-old female with a past medical history of TIA, Aneurysm , HTN, Bicuspid AV s/p Mechanical AVR and aortic aneurysm repair 2001 [facility] presents to the emergency department with chest discomfort. The patient presents with localized mid-chest discomfort since earlier today. The patient reports an additional concern of migraine for the past couple of days, accompanied with dehydration. The patient reports last weeks she had an episode of shakiness and unsteadiness along with tachycardia. The patient states she was following up with Dr. 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 Pendleton when the symptoms presented last weeks. The patient reports having an echo done 2 years ago, following a emmanuel was done secondary to Dr. Garner thought she saw something. The patient is currently on coumadin. Allergies: NKA Social history: None reported Surgical history: Valve replacement. PCP: Dr. Jaqueline Powell Documentation Liaison: Dr. Yara Garner - Physicial Exam PE: 05/22/18 18:03 GENERAL: Awake, alert, and fully oriented, in no acute distress HEAD: No signs of trauma EYES: PERRLA, EOMI, sclera anicteric, conjunctiva clear ENT: (+) Dry mucous membranes and cracked tongue. Auricles normal inspection, hearing grossly normal, nares patent. NECK: Normal ROM, supple, no lymphadenopathy, JVD, or masses LUNGS: Breath sounds equal, clear to auscultation bilaterally. No wheezes, and no crackles HEART: (+) Systolic click from Aortic valve. Regular rate and rhythm, normal S1 and S2, no murmurs, rubs or gallops ABDOMEN: No abdominal tenderness. Soft, normoactive bowel sounds. No guarding, no rebound. No masses EXTREMITIES: Normal range of motion, no edema. No erythema or tenderness. DP/PT pulses 2+ and symmetric. Warm and well perfused. NEUROLOGICAL: Moves all extremities. Normal speech. SKIN: Warm, Dry, normal turgor, no rashes or lesions noted. - Medical Decision Making 05/22/18 18:06 Documentation prepared by Francisca Dugan, acting as medical record librarians teacher for Renu Gutierrez DO. <Francisca Dugan - Last Filed: 09/07/18 18:02> - Resident Resident Name: [email or web address] - ED Attending Attestation I have performed the following: I have examined & evaluated the patient, The case was reviewed & discussed with the resident, I agree w/resident's findings & plan, Exceptions are as noted - Medical Decision Making 05/22/18 16:18 I, Dr. Renu Gutierrez, DO, attest that this document has been prepared under my direction and personally reviewed by me in its entirety. I further attest, that it accurately reflects all work, treatment, procedures and medical decision -making performed by me. 05/22/18 18:23 58yo female with chest pressure today assoc with sob and nausea -hx of aortic valve replacement with mechanical valve on coumadin -has never had cath -follows with Dr. Ganrer - called Dr Pendleton office today -has been feeling palpitations -will send labs -will check trop, tsh -will monitor and reassess 05/22/18 18:24 pt with negative trop will keep in obs for cardiac eval 05/22/18 19:02 resident discussed the case with EDIL who accepts pt to service <Renu Gutierrez - Last Filed: 05/22/18 19:02> Heart Score/ECG Review - ECG Intrepretation Comment:: 05/22/18 16:23 sinus at 90, q waves septally that are age indeterminate, poor r wave progression, lafb, no acute st/t wave findings, abnl ekg <Renu Gutierrez - Last Filed: 05/22/18 19:02>
[2018-05-22 16:51] LABS: BASO % 0.4 % (0-2.0); EOS % 2.2 % (0-4.5); HEMATOCRIT 35.8 % (32.4-45.2); HEMOGLOBIN 12.3 GM/dL (10.7-15.3); LYMPH % 24.8 % (8-40); MCH 28.1 pg (25.7-33.7); MCHC 34.3 g/dl (32.0-36.0); MEAN CELL VOLUME 81.9 fl (80-96); MEAN PLT VOLUME 7.7 fl (7.5-11.1); NEUT % 65.6 % (42.8-82.8); PLATELET COUNT 326 K/MM3 (134-434); RBC 4.37 M/mm3 (3.60-5.2); RDW 13.7 % (11.6-15.6); WHITE BLOOD COUNT 7.5 K/mm3 (4.0-10.0)
[2018-05-22 17:18] LABS: ALBUMIN 3.5 g/dl (3.4-5.0); ANION GAP 10 MMOL/L (8-16); BILIRUBIN,TOTAL 0.8 mg/dL (0.2-1.0); BLOOD UREA NITROGEN 14 mg/dL (7-18); CALCIUM 8.5 mg/dL (8.5-10.1); CHLORIDE 106 mmol/L (98-107); CO2 27 mmol/L (21-32); CREATININE 0.8 mg/dL (0.55-1.02); GLUCOSE,RANDOM 101 mg/dL (74-106); MAGNESIUM 2.1 mg/dL (1.8-2.4); POTASSIUM 3.9 mmol/L (3.5-5.1); SGOT/AST 21 U/L (15-37); SGPT/ALT 42 U/L (12-78); SODIUM 143 mmol/L (136-145); TOT PROT 6.5 g/dl (6.4-8.2)
[2018-05-22 17:21] LABS: ALK PHOS 88 U/L (45-117)
[2018-05-22] MEDS ORDERED: METOCLOPRAMIDE HCL INJECTION 10 MG/2 ML VIAL IVPB ONE (17:26)
[2018-05-22] MEDS ORDERED: ACETAMINOPHEN 325 MG TABLET (FP) PO ONE (17:26)
[2018-05-22] MEDS ORDERED: SODIUM CHLORIDE 1,000 ML IV STA (17:26)
[2018-05-22] MEDS ORDERED: METOCLOPRAMIDE HCL INJECTION 10 MG/2 ML VIAL ONE (17:30)
[2018-05-22] MEDS ORDERED: ACETAMINOPHEN 325 MG TABLET (FP) ONE (17:30)
[2018-05-22 17:41] LABS: PROTHROMBIN TIME (PATIENT) 55.7 SEC (9.7-13.0)
[2018-05-22 17:52] LABS: INR 4.93 (0.83-1.09)
[2018-05-22] MEDS ORDERED: ASPIRIN 81 MG CHEWABLE TABLETS PO ONE (19:03)
[2018-05-22] MEDS ORDERED: ASPIRIN 325 MG TABLET ONE (19:26)
[2018-05-23 07:11] VITALS: BMI 32.1
--- NOTE | 2018-05-23 08:40 | HP ---
Admitting History and Physical - Admission History of Present Illness: 58 yo female w/ pmh of anxiety, GERD, Aortic Aneurysm repair and Aortic valve replacement who presents for evaluation of chest pain/pressure x1 day. 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 Patient reports that starting today she has had constant midline chest pressure as well unrelieved by position or activity. Patient reports she takes coumadin, amytryptaline, and protonix. 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 No: AFIB, Aortic Insufficiency, Aortic Stenosis, CAD, CHF, Deep Vein Thrombosis, Hyperlipdemia, CA, Mitral Insufficiency, Mitral Stenosis, Murmur, Pulmonary Hypertension Gastrointestinal: Yes: Other (POSSIBLE GB DISEASE???) Hepatobiliary: Yes: Other (as above) ...LMP: 11/14/03 - Past Surgical History Past Surgical History: Yes: Valve Replacement. No: None, AAA Repair, AICD, Amputation, Appendectomy, Arthrosocopy, AV Fistula/Graft, Bariatric Surgery, Breast Biopsy, Bypass, CABG, Carotid Endarterectomy, Cataract Removal, Cholecystectomy, Colectomy, Colonoscopy, Colostomy, Craniotomy, , Cystectomy, Hernia Repair, Hysterectomy, Ileal Conduit, Ileosotomy, Joint Replacement, Kidney Transplant, Laminectomy, Liver Transplant, Mastectomy, Nephrectomy, Oopherectomy, Orchiectomy, Permanent Pacemaker, Prostatectomy, Splenectomy, Stent, Thoracotomy, TURP, Tonsillectomy, Tubal Ligation, Upper Endoscopy, Vasectomy, Vein Stripping/Ligation - Smoking History Smoking history: Never smoked Have you smoked in the past 12 months: No Aproximately how many cigarettes per day: 0 - Alcohol/Substance Use Hx Alcohol Use: No - Social History ADL: Independent History of Recent Travel: No Home Medications - Allergies Allergies/Adverse Reactions: Allergies Allergy/AdvReac Type Severity Reaction Status Date / Time No Known Allergies Allergy Verified 05/22/18 15:38 - Home Medications Home Medications: Ambulatory Orders Warfarin Na [Coumadin -] 4 mg PO DAILY 05/28/17 Nortriptyline HCl [Pamelor -] 25 mg PO DAILY 10/17/17 Pantoprazole Sodium [Protonix -] 40 mg PO DAILY 10/17/17 Family Disease History - Family Disease History Family Disease History: Other: Mother (ascending aortic aneurysm) Review of Systems - Review of Systems Cardiovascular: reports: Chest Pain, Palpitations Respiratory: reports: SOB on Exertion Gastrointestinal: reports: No Symptoms Genitourinary: reports: No Symptoms Neurological: reports: Headache Physical Examination Vital Signs: Vital Signs Temperature 97.7 F 05/23/18 07:08 Pulse Rate 63 05/23/18 07:08 Respiratory Rate 18 05/23/18 07:08 Blood Pressure 144/83 05/23/18 07:08 O2 Sat by Pulse Oximetry (%) 98 05/23/18 04:32 Cardiovascular: Yes: Murmur, S1, S2 Respiratory: Yes: Regular, CTA Bilaterally Gastrointestinal: Yes: Normal Bowel Sounds, Soft. No: Tenderness Edema: No Neurological: Yes: Alert, Oriented Labs: CBC, BMP 05/22/18 16:30 05/22/18 16:30 Imaging - Results Chest X-ray: Report Reviewed Problem List - Problems (1) Chest pain Assessment/Plan: Follow CE -Cardiology consult -echo and stress test -statin Code(s): R07.9 - CHEST PAIN, UNSPECIFIED Qualifiers: Chest pain type: other chest pain Qualified Code(s): R07.89 - Other chest pain; R07.8 - Other chest pain (2) Headache Assessment/Plan: -Ct of head -tylenol Code(s): R51 - HEADACHE (3) Status post aortic valve replacement with prosthetic valve Assessment/Plan: -on Coumadin -hold ac -follow inr Code(s): Z95.2 - PRESENCE OF PROSTHETIC HEART VALVE (4) Subtherapeutic international normalized ratio (INR) Assessment/Plan: -as above Code(s): R79.1 - ABNORMAL COAGULATION PROFILE (5) HTN (hypertension) Assessment/Plan: -add bystolic Code(s): I10 - ESSENTIAL (PRIMARY) HYPERTENSION
[2018-05-23] MEDS: NEBIVOLOL 5 MG TABLET (FP) PO SCH (09:41)
[2018-05-23] MEDS: PANTOPRAZOLE 40 MG TABLET (FP) PO SCH (09:41)
[2018-05-23 09:42] LABS: BASO % 0.5 % (0-2.0); EOS % 1.9 % (0-4.5); HEMATOCRIT 36.7 % (32.4-45.2); HEMOGLOBIN 12.3 GM/dL (10.7-15.3); LYMPH % 23.6 % (8-40); MCH 27.7 pg (25.7-33.7); MCHC 33.4 g/dl (32.0-36.0); MEAN CELL VOLUME 82.8 fl (80-96); MEAN PLT VOLUME 7.6 fl (7.5-11.1); MONO % 4.7 % (3.8-10.2); NEUT % 69.3 % (42.8-82.8); PLATELET COUNT 300 K/MM3 (134-434); RBC 4.43 M/mm3 (3.60-5.2); RDW 13.8 % (11.6-15.6); WHITE BLOOD COUNT 6.7 K/mm3 (4.0-10.0)
[2018-05-23 10:10] LABS: PROTHROMBIN TIME (PATIENT) 57.8 SEC (9.7-13.0)
[2018-05-23 10:24] LABS: ALBUMIN 3.2 g/dl (3.4-5.0); CALCIUM 8.1 mg/dL (8.5-10.1); CHLORIDE 108 mmol/L (98-107); SODIUM 143 mmol/L (136-145)
[2018-05-23 10:30] LABS: ALK PHOS 81 U/L (45-117); ANION GAP 8 MMOL/L (8-16); BILIRUBIN,TOTAL 0.9 mg/dL (0.2-1.0); BLOOD UREA NITROGEN 12 mg/dL (7-18); CHOLESTEROL 188 mg/dL (50-200); CO2 27 mmol/L (21-32); CREATININE 0.7 mg/dL (0.55-1.02); GLUCOSE,RANDOM 129 mg/dL (74-106); HDL CHOLESTEROL 43 mg/dL (40-60); SGOT/AST 24 U/L (15-37); SGPT/ALT 43 U/L (12-78); TRIGLYCERIDES 122 mg/dL (35-160)
[2018-05-23 10:38] LABS: INR 5.12 (0.83-1.09)
[2018-05-23] MEDS: NORTRIPTYLINE HCL 25 MG CAPSULE PO SCH (10:49)
[2018-05-23] MEDS ORDERED: ACETAMINOPHEN 325 MG TABLET (FP) PO PRN (11:23)
--- NOTE | 2018-05-23 11:39 | CONSULT ---
Consult Consult Specialty:: Cardiology (Dr. Lopez for Dr. Pendleton) Referred by:: Medicine Reason for Consultation:: Chest Pain - History of Present Illness Chief Complaint: Chest pain, palpitations History of Present Illness: 58 yo female Known prior bicuspid AV s/p mechanical ([facility]) AVR and Aortic aneurysm repair in 2001 ([facility]) Followed previously by Dr. Galvin, now Dr. Pendleton Now presents with 1 week of racing heart rate and 1 day of constant chest pain Chest pain is rated 8/10 in intensity with radiation at time to her jaw along with migraine headache. Non exertional without relieving factors. Was admitted in 05/2017 for subtherapeutic INR No known h/o CVA, [place], bleeding on anticoagulation In ED Trop negative and initial ECG done on 05/22/2018 at 15:35 showed NSR at 90/ min with LVH and septal Qs. 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 No: AFIB, Aortic Insufficiency, Aortic Stenosis, CAD, CHF, Deep Vein Thrombosis, Hyperlipdemia, [place], Mitral Insufficiency, Mitral Stenosis, Murmur, Pulmonary Hypertension Gastrointestinal: Yes: Other (POSSIBLE GB DISEASE???) Hepatobiliary: Yes: Other (as above) ...LMP: 11/14/03 - Past Surgical History Past Surgical History: Yes: Valve Replacement. No: None, AAA Repair, AICD, Amputation, Appendectomy, Arthrosocopy, AV Fistula/Graft, Bariatric Surgery, Breast Biopsy, Bypass, CABG, Carotid Endarterectomy, Cataract Removal, Cholecystectomy, Colectomy, Colonoscopy, Colostomy, Craniotomy, , Cystectomy, Hernia Repair, Hysterectomy, Ileal Conduit, Ileosotomy, Joint Replacement, Kidney Transplant, Laminectomy, Liver Transplant, Mastectomy, Nephrectomy, Oopherectomy, Orchiectomy, Permanent Pacemaker, Prostatectomy, Splenectomy, Stent, Thoracotomy, TURP, Tonsillectomy, Tubal Ligation, Upper Endoscopy, Vasectomy, Vein Stripping/Ligation - Alcohol/Substance Use Hx Alcohol Use: No - Smoking History Smoking history: Never smoked Have you smoked in the past 12 months: No Aproximately how many cigarettes per day: 0 - Social History ADL: Independent History of Recent Travel: No Home Medications - Allergies Allergies/Adverse Reactions: Allergies Allergy/AdvReac Type Severity Reaction Status Date / Time No Known Allergies Allergy Verified 05/22/18 15:38 - Home Medications Home Medications: Ambulatory Orders Warfarin Na [Coumadin -] 4 mg PO DAILY 05/28/17 Nortriptyline HCl [Pamelor -] 25 mg PO DAILY 10/17/17 Pantoprazole Sodium [Protonix -] 40 mg PO DAILY 10/17/17 Family Disease History - Family Disease History Family Disease History: Other: Mother (ascending aortic aneurysm) Review of Systems - Review of Systems Constitutional: reports: No Symptoms Eyes: denies: No Symptoms, Blind Spots, Blurred Vision, Double Vision, Eye Pain , Floaters, Photophobia, Recent Change in Vision, Other HENT: denies: No Symptoms, Difficult Swallowing, Ear Discharge, Ear Pain, Epistaxis, Gingival Bleeding, Hearing Loss, Mouth Swelling, Nasal Congestion, Ocular Prosthesis, Throat Pain, Toothache, Ringing in Ears, Other Neck: denies: No Symptoms, Decreased ROM, Lumps, Pain on Movement, Stiffness, Swollen Glands, Tenderness, Other Cardiovascular: reports: Chest Pain Respiratory: denies: No Symptoms, Cough, Exercise Intolerance, Hemoptysis, Orthopnea, PND, Snoring, SOB, SOB on Exertion, Wheezing, Other Gastrointestinal: denies: No Symptoms, Abdominal Pain, Bloating, Constipation, Diarrhea, Dysphagia, Indigestion, Melena, Nausea, Rectal Bleeding, Vomiting, Vomiting Blood, Other Genitourinary: denies: No Symptoms, Burning, Discharge, Dysuria, Flank Pain, Frequency, Hematuria, Incontinence, Lesions, Menses, Pain, Testicular Mass, Testicular Pain, Testicular Swelling, Urgency, Vaginal Bleeding, Other Neurological: reports: Headache Endocrine: denies: No Symptoms, Excessive Sweating, Flushing, Increased Hunger, Increased Thirst, Intolerance to Cold, Intolerance to Heat, Unexplained Weight Gain, Unexplained Weight Loss, Other Hematology/Lymphatic: denies: No Symptoms, Easily Bruised, Excessive Bleeding, Swollen Glands, Other Psychiatric: denies: No Symptoms, Altered Sleep Pattern, Anxiety, Depression, Hallucinations, Panic, Paranoia, Suicidal, Other Physical Exam Vital Signs: Vital Signs Temperature 97.7 F 05/23/18 07:08 Pulse Rate 63 05/23/18 07:08 Respiratory Rate 18 05/23/18 07:08 Blood Pressure 144/83 05/23/18 07:08 O2 Sat by Pulse Oximetry (%) 98 05/23/18 04:32 Constitutional: Yes: Well Nourished, No Distress Eyes: Yes: WNL HENT: Yes: WNL Neck: Yes: WNL Cardiovascular: Yes: WNL, Regular Rate and Rhythm Respiratory: Yes: CTA Bilaterally Gastrointestinal: Yes: Normal Bowel Sounds Musculoskeletal: Yes: WNL Extremities: Yes: WNL Edema: No Labs: CBC, BMP 05/23/18 09:20 05/23/18 09:20 Imaging - Results X-ray: Image Reviewed (No actiove pulmonary disease) EKG: Image Reviewed (05/22/2018 at 15:35 showed NSR at 90/min with LVH and septal Qs.) Other: Report Reviewed (Stress test with small apical thinning, LVEF 65% CITLALY: Normal biventricular size and function, bileaflet mechanical AV with normal function. Trace PVL) Assessment/Plan 58 yo female known s/p mechanical AVR with ascsending aortic repair in 1999 on chronic AC, now admitted with atypical chest pain, palpitations. 1) Chest pain -Atypical in quality, non exertional -Initial ECG non-ischemic and initial trop neg -Would continue rule out with serial troponin -Other etiology of chest to consider in patient with prior ascending aortic repair is dissection/aneurysm. Had CTA in December 2017 with no aneurysm or dissection and CXR with normal silhoutette so suspicion is low. -Will get echo to assess mechanical AV functionality 2) Mechanical AVR -Continue coumadin, goal INR 2.5-3.5 -INR supratherapeuric this AM, no bleeding, hold coumadin 3) palpitations. -Continue tele -started oin bysolic by PMD
[2018-05-23] MEDS: traMADol HCL 50 MG TABLET PO PRN ×2 (12:58→20:00)
[2018-05-23] MEDS: ATORVASTATIN CA 20 MG TABLET (FP) PO SCH (21:02)
[2018-05-24] MEDS: traMADol HCL 50 MG TABLET PO PRN (05:44)
[2018-05-24] MEDS ORDERED: PT OWN MED DRAWER 7, Y5N ONE (08:43)
[2018-05-24] MEDS: NORTRIPTYLINE HCL 25 MG CAPSULE PO SCH (09:36)
[2018-05-24] MEDS: PANTOPRAZOLE 40 MG TABLET (FP) PO SCH (09:37)
[2018-05-24] MEDS: NEBIVOLOL 5 MG TABLET (FP) PO SCH (09:37)
--- NOTE | 2018-05-24 10:11 | PN ---
Progress Note, Physician History of Present Illness: No new complaints Palpitations Tele no arrhythmias noted Still will dull upper chest discomfort, some positional component - Current Medication List Current Medications: Active Medications Acetaminophen (Tylenol -) 650 mg PO Q4H PRN PRN Reason: PAIN LEVEL 1-5 Atorvastatin Calcium (Lipitor -) 20 mg PO HS [facility] Last Admin: 05/23/18 21:02 Dose: 20 mg Nebivolol (Bystolic -) 5 mg PO DAILY [facility] Last Admin: 05/24/18 09:37 Dose: 5 mg Nortriptyline HCl (Pamelor -) 25 mg PO DAILY [facility] Last Admin: 05/24/18 09:36 Dose: 25 mg Pantoprazole Sodium (Protonix -) 40 mg PO DAILY [facility] Last Admin: 05/24/18 09:37 Dose: 40 mg Tramadol HCl (Ultram -) 50 mg PO Q8H PRN PRN Reason: PAIN LEVEL 6-10 Last Admin: 05/24/18 05:44 Dose: 50 mg - Objective Vital Signs: Vital Signs Temperature 98.3 F 05/24/18 05:00 Pulse Rate 66 05/24/18 05:00 Respiratory Rate 18 05/24/18 05:00 Blood Pressure 127/65 05/24/18 05:00 O2 Sat by Pulse Oximetry (%) 98 05/23/18 20:43 Constitutional: Yes: No Distress, Calm Eyes: Yes: WNL HENT: Yes: WNL Neck: Yes: WNL Cardiovascular: Yes: Regular Rate and Rhythm, Murmur Respiratory: Yes: CTA Bilaterally Gastrointestinal: Yes: Normal Bowel Sounds Musculoskeletal: Yes: WNL Extremities: Yes: WNL Edema: No Labs: CBC, BMP 05/23/18 09:20 05/23/18 09:20 INR, PTT INR 5.12 (0.83-1.09) H* 05/23/18 09:20 Assessment/Plan 58 yo female known s/p mechanical AVR with ascsending aortic repair in 1999 on chronic AC, now admitted with atypical chest pain, palpitations. 1) Chest pain -Atypical in quality, non exertional, some msk component -Initial ECG non-ischemic and initial trop neg -Would continue rule out with serial troponin -Other etiology of chest to consider in patient with prior ascending aortic repair is dissection/aneurysm. Had CTA in December 2017 with no aneurysm or dissection and CXR with normal silhoutette. -Suspicion is low for aortic disease but given her h/o BAV and its associated aortopathy (even after repair which she had), would have low threshold to rescan her Aorta if pain does not resolve. -Will get echo to assess mechanical AV functionality (though suspect will be normal) 2) Mechanical AVR -Continue coumadin, goal INR 2.5-3.5 -INR supratherapeuric this on admission, no bleeding -INR 3 today, would resume outpatient coumadin dose 3) palpitations. -Continue tele -started on bysolic by PMTerra, wil to continue
[2018-05-24 10:29] LABS: BASO % 0.6 % (0-2.0); EOS % 2.6 % (0-4.5); HEMATOCRIT 39.2 % (32.4-45.2); LYMPH % 29.8 % (8-40); MCH 27.7 pg (25.7-33.7); MCHC 33.3 g/dl (32.0-36.0); MEAN CELL VOLUME 83.2 fl (80-96); MEAN PLT VOLUME 7.7 fl (7.5-11.1); MONO % 6.7 % (3.8-10.2); NEUT % 60.3 % (42.8-82.8); PLATELET COUNT 319 K/MM3 (134-434); RBC 4.71 M/mm3 (3.60-5.2); RDW 13.8 % (11.6-15.6)
[2018-05-24 11:11] LABS: ALBUMIN 3.4 g/dl (3.4-5.0); ANION GAP 9 MMOL/L (8-16); BILIRUBIN,TOTAL 0.9 mg/dL (0.2-1.0); BLOOD UREA NITROGEN 10 mg/dL (7-18); CALCIUM 8.5 mg/dL (8.5-10.1); CHLORIDE 105 mmol/L (98-107); CO2 28 mmol/L (21-32); CREATININE 0.8 mg/dL (0.55-1.02); GLUCOSE,RANDOM 76 mg/dL (74-106); POTASSIUM 4.2 mmol/L (3.5-5.1); SGOT/AST 32 U/L (15-37); SGPT/ALT 58 U/L (12-78); SODIUM 142 mmol/L (136-145); TOT PROT 6.5 g/dl (6.4-8.2)
[2018-05-24 11:14] LABS: ALK PHOS 84 U/L (45-117)
[2018-05-24] MEDS: ACETAMINOPHEN/CAFFEINE/BUTALBITAL 1 TAB PO PRN ×2 (12:43→21:07)
--- NOTE | 2018-05-24 13:51 | PN ---
Progress Note, Physician - Current Medication List Current Medications: Active Medications Acetaminophen (Tylenol -) 650 mg PO Q4H PRN PRN Reason: PAIN LEVEL 1-5 Acetaminophen/Butalbital/Caffeine (Fioricet -) 1 tablet PO Q6H PRN PRN Reason: HEADACHE Last Admin: 05/24/18 12:43 Dose: 1 tablet Atorvastatin Calcium (Lipitor -) 20 mg PO HS [facility] Last Admin: 05/23/18 21:02 Dose: 20 mg Nebivolol (Bystolic -) 5 mg PO DAILY [facility] Last Admin: 05/24/18 09:37 Dose: 5 mg Nortriptyline HCl (Pamelor -) 25 mg PO DAILY [facility] Last Admin: 05/24/18 09:36 Dose: 25 mg Pantoprazole Sodium (Protonix -) 40 mg PO DAILY [facility] Last Admin: 05/24/18 09:37 Dose: 40 mg Tramadol HCl (Ultram -) 50 mg PO Q8H PRN PRN Reason: PAIN LEVEL 6-10 Last Admin: 05/24/18 05:44 Dose: 50 mg - Objective Vital Signs: Vital Signs Temperature 98.4 F 05/24/18 09:58 Pulse Rate 64 05/24/18 09:58 Respiratory Rate 20 05/24/18 09:58 Blood Pressure 134/72 05/24/18 09:58 O2 Sat by Pulse Oximetry (%) 97 05/24/18 09:58 Cardiovascular: Yes: Murmur, S1, S2 Respiratory: Yes: Regular, CTA Bilaterally Gastrointestinal: Yes: Normal Bowel Sounds, Soft Labs: CBC, BMP 05/24/18 09:45 05/24/18 09:45 INR, PTT INR 5.12 (0.83-1.09) H* 05/23/18 09:20 Problem List - Problems (1) Chest pain Assessment/Plan: Follow CE -Cardiology consult -echo and stress test -statin Code(s): R07.9 - CHEST PAIN, UNSPECIFIED Qualifiers: Chest pain type: other chest pain Qualified Code(s): R07.89 - Other chest pain; R07.8 - Other chest pain (2) Headache Assessment/Plan: -Ct of head -[facility] Code(s): R51 - HEADACHE (3) Status post aortic valve replacement with prosthetic valve Assessment/Plan: -on Coumadin -hold ac -follow inr Code(s): Z95.2 - PRESENCE OF PROSTHETIC HEART VALVE (4) Subtherapeutic international normalized ratio (INR) Assessment/Plan: -as above Code(s): R79.1 - ABNORMAL COAGULATION PROFILE (5) HTN (hypertension) Assessment/Plan: -add bystolic Code(s): I10 - ESSENTIAL (PRIMARY) HYPERTENSION
[2018-05-24 15:05] LABS: INR 3.02 (0.83-1.09); PROTHROMBIN TIME (PATIENT) 34.1 SEC (9.7-13.0)
[2018-05-24] MEDS: ATORVASTATIN CA 20 MG TABLET (FP) PO SCH (21:08)
[2018-05-24] MEDS: WARFARIN NA 5 MG TABLET (UD) PO SCH (21:08)
[2018-05-25 08:00] LABS: BASO % 0.6 % (0-2.0); EOS % 2.5 % (0-4.5); HEMATOCRIT 38.3 % (32.4-45.2); LYMPH % 25.8 % (8-40); MEAN CELL VOLUME 82.3 fl (80-96); MEAN PLT VOLUME 7.7 fl (7.5-11.1); MONO % 6.9 % (3.8-10.2); NEUT % 64.2 % (42.8-82.8); PLATELET COUNT 298 K/MM3 (134-434); RBC 4.66 M/mm3 (3.60-5.2); RDW 13.7 % (11.6-15.6); WHITE BLOOD COUNT 6.2 K/mm3 (4.0-10.0)
[2018-05-25 08:07] LABS: ALBUMIN 3.3 g/dl (3.4-5.0); ANION GAP 5 MMOL/L (8-16); BILIRUBIN,TOTAL 0.7 mg/dL (0.2-1.0); BLOOD UREA NITROGEN 15 mg/dL (7-18); CALCIUM 8.9 mg/dL (8.5-10.1); CHLORIDE 104 mmol/L (98-107); CO2 33 mmol/L (21-32); CREATININE 0.9 mg/dL (0.55-1.02); GLUCOSE,RANDOM 97 mg/dL (74-106); POTASSIUM 4.5 mmol/L (3.5-5.1); SGOT/AST 26 U/L (15-37); SGPT/ALT 57 U/L (12-78); SODIUM 142 mmol/L (136-145); TOT PROT 6.5 g/dl (6.4-8.2)
[2018-05-25 08:08] LABS: ALK PHOS 92 U/L (45-117)
[2018-05-25 08:20] LABS: INR 2.44 (0.83-1.09); PROTHROMBIN TIME (PATIENT) 27.6 SEC (9.7-13.0)
--- NOTE | 2018-05-25 09:24 | PN ---
Progress Note, Physician - Current Medication List Current Medications: Active Medications Acetaminophen (Tylenol -) 650 mg PO Q4H PRN PRN Reason: PAIN LEVEL 1-5 Acetaminophen/Butalbital/Caffeine (Fioricet -) 1 tablet PO Q6H PRN PRN Reason: HEADACHE Last Admin: 05/24/18 21:07 Dose: 1 tablet Atorvastatin Calcium (Lipitor -) 20 mg PO HS [facility] Last Admin: 05/24/18 21:08 Dose: 20 mg Nebivolol (Bystolic -) 5 mg PO DAILY [facility] Last Admin: 05/24/18 09:37 Dose: 5 mg Nortriptyline HCl (Pamelor -) 25 mg PO DAILY [facility] Last Admin: 05/24/18 09:36 Dose: 25 mg Pantoprazole Sodium (Protonix -) 40 mg PO DAILY [facility] Last Admin: 05/24/18 09:37 Dose: 40 mg Tramadol HCl (Ultram -) 50 mg PO Q8H PRN PRN Reason: PAIN LEVEL 6-10 Last Admin: 05/24/18 05:44 Dose: 50 mg Warfarin Sodium (Coumadin -) 5 mg PO DAILY@1800 [facility] Last Admin: 05/24/18 21:08 Dose: 5 mg - Objective Vital Signs: Vital Signs Temperature 98 F 05/25/18 05:00 Pulse Rate 62 05/25/18 05:00 Respiratory Rate 18 05/25/18 05:00 Blood Pressure 156/78 05/25/18 05:00 O2 Sat by Pulse Oximetry (%) 97 05/24/18 21:00 Cardiovascular: Yes: S1, S2 Respiratory: Yes: Regular, CTA Bilaterally Gastrointestinal: Yes: Normal Bowel Sounds, Soft Labs: CBC, BMP 05/25/18 06:30 05/25/18 06:30 INR, PTT INR 2.44 (0.83-1.09) H 05/25/18 06:30 Problem List - Problems (1) Chest pain Assessment/Plan: Follow CE -Cardiology consult -echo and stress test -statin Code(s): R07.9 - CHEST PAIN, UNSPECIFIED Qualifiers: Chest pain type: other chest pain Qualified Code(s): R07.89 - Other chest pain; R07.8 - Other chest pain (2) Headache Assessment/Plan: -Ct of head-[facility] Code(s): R51 - HEADACHE (3) Status post aortic valve replacement with prosthetic valve Assessment/Plan: -on Coumadin -hold ac -follow inr Code(s): Z95.2 - PRESENCE OF PROSTHETIC HEART VALVE (4) Subtherapeutic international normalized ratio (INR) Assessment/Plan: -as above Code(s): R79.1 - ABNORMAL COAGULATION PROFILE (5) HTN (hypertension) Assessment/Plan: -add bystolic Code(s): I10 - ESSENTIAL (PRIMARY) HYPERTENSION
--- NOTE | 2018-05-25 11:14 | EKG ---
Test Reason : Blood Pressure : / mmHG Vent. Rate : 090 BPM Atrial Rate : 090 BPM P-R Int : 162 ms QRS Dur : 096 ms QT Int : 388 ms P-R-T Axes : 014 -52 034 degrees QTc Int : 474 ms NORMAL SINUS RHYTHM LEFT ANTERIOR FASCICULAR BLOCK MINIMAL VOLTAGE CRITERIA FOR LVH, MAY BE NORMAL VARIANT SEPTAL INFARCT (CITED ON OR BEFORE 30-DEC-2016) ABNORMAL ECG WHEN COMPARED WITH ECG OF 01-JAN-2018 00:59, T WAVE VARIATION Confirmed by ANKIT CRUZ MD ([id number]) on 05/25/2018 11:14:10 AM Referred By: Confirmed By:ANKIT CRUZ MD
[2018-05-25] MEDS ORDERED: PT OWN MED DRAWER 7, Y5N ONE (11:29)
[2018-05-25] MEDS ORDERED: REGADENOSON 0.4 MG/5 ML PRE-FILLED SYRINGE IVPUSH ONE ×2 (12:00→14:06)
--- NOTE | 2018-05-25 12:07 | PN ---
Progress Note (short form) - Note Progress Note: s: stable positional chest discomfort, palpitations. no dyspnea, not exertional Tele no arrhythmias noted Current Medications Acetaminophen (Tylenol -) 650 mg PO Q4H PRN PRN Reason: PAIN LEVEL 1-5 Acetaminophen/Butalbital/Caffeine (Fioricet -) 1 tablet PO Q6H PRN PRN Reason: HEADACHE Last Admin: 05/24/18 21:07 Dose: 1 tablet Atorvastatin Calcium (Lipitor -) 20 mg PO HS [facility] Last Admin: 05/24/18 21:08 Dose: 20 mg Nebivolol (Bystolic -) 5 mg PO DAILY [facility] Last Admin: 05/24/18 09:37 Dose: 5 mg Nortriptyline HCl (Pamelor -) 25 mg PO DAILY [facility] Last Admin: 05/24/18 09:36 Dose: 25 mg Pantoprazole Sodium (Protonix -) 40 mg PO DAILY [facility] Last Admin: 05/24/18 09:37 Dose: 40 mg Tramadol HCl (Ultram -) 50 mg PO Q8H PRN PRN Reason: PAIN LEVEL 6-10 Last Admin: 05/24/18 05:44 Dose: 50 mg Warfarin Sodium (Coumadin -) 5 mg PO DAILY@1800 [facility] Last Admin: 05/24/18 21:08 Dose: 5 mg - Objective Vital Signs Period Temp Pulse Resp BP Sys/Rose Pulse Ox Last 24 Hr 98 F-98.5 F 57-65 18-20 129-156/58-88 97-97 Constitutional: Yes: No Distress, Calm Eyes: Yes: WNL HENT: Yes: WNL Neck: Yes: WNL Cardiovascular: Yes: Regular Rate and Rhythm, Murmur Respiratory: Yes: CTA Bilaterally Gastrointestinal: Yes: Normal Bowel Sounds Musculoskeletal: Yes: WNL Extremities: Yes: WNL Edema: No Assessment/Plan echo: LV nl function, E/A reversal c/w impaired relaxation, mild TR, mechanical AVR well seated, DI 0.21, no AR nuclear pharm stress 04/2018: small znoe of apical fixed defect c/w attenuation, EF 62%, no ischemia 58 yo female known s/p mechanical AVR with ascsending aortic repair in 1999 on chronic AC, now admitted with atypical chest pain, palpitations. 1) Chest pain -Atypical in quality, non exertional, some msk component -Initial ECG non-ischemic and trop neg x 2 - nuc stress no ischemia -Other etiology of chest to consider in patient with prior ascending aortic repair is dissection/aneurysm. Had CTA in December 2017 with no aneurysm or dissection and CXR with normal silhoutette. -Suspicion is low for aortic disease but given her h/o BAV and its associated aortopathy (even after repair which she had), would have low threshold to rescan her Aorta if pain does not resolve - still complaining of chest pain today, CTA chest ordered. if benign no further cardiac workup as inpatient 2) Mechanical AVR -Continue coumadin, goal INR 2.5-3.5 -INR supratherapeuric this on admission, no bleeding -INR 3 today, would resume outpatient coumadin dose - no significant stenosis or regurgitation on echo, nl valve function 3) palpitations. -Continue tele -started on bysolic by wil SPENCE to continue
--- NOTE | 2018-05-25 13:34 | ECHO ---
Name: CHRISTIE MONTANEZ Exam:Adult Echocardiogram Study Date: 05/25/2018 10:17 AM Age: 58 yrs Reason For Study: S/P MECHANICAL AVR WITH CHEST PAIN Height: 64 in Weight: 187 lb BSA: 1.9 m2 MMode/2D Measurements & Calculations IVSd: 0.83 cm Ao root diam: 2.8 cm LVIDd: 4.6 cm LA dimension: 3.4 cm LVIDs: 2.9 cm LVPWd: 0.79 cm EDV(Teich): 95.4 ml ESV(Teich): 33.4 ml Doppler Measurements & Calculations MV E max dhirja: 49.9 cm/sec Ao V2 max: 219.6 cm/sec MV A max dhiraj: 83.9 cm/sec Ao max P.3 mmHg MV E/A: 0.59 LV V1 max P.4 mmHg TR max dhiraj: 149.3 cm/sec LV V1 max: 59.2 cm/sec TR max P.9 mmHg PI end-d dhiraj: 58.6 cm/sec Med Peak E' Dhiraj: 5.3 cm/sec Med E/e': 9.4 Lat Peak E' Dhiraj: 7.9 cm/sec Lat E/e': 6.3 Procedure A complete two-dimensional transthoracic echocardiogram was performed (2D, M-mode, Doppler and color flow Doppler). Left Ventricle The left ventricle is normal in size. Left ventricular systolic function is normal. Ejection Fraction = 60- 65%. E/A reversal with TDI revealing impaired relaxation and normal filling pressure (med E' 5.4, E/E ' 9). No regional wall motion abnormalities noted. Right Ventricle The right ventricle is normal size. The right ventricular systolic function is normal. Atria The left atrial size is normal. Right atrium not well visualized. Mitral Valve There is mild mitral annular calcification. There is no mitral regurgitation noted. Tricuspid Valve The tricuspid valve is normal in structure and function. There is mild tricuspid regurgitation. Aortic Valve There is a mechanical aortic valve. The prosthetic aortic valve is well-seated. DI (dimentionless ind ex) is 0.31. No aortic regurgitation is present. Pulmonic Valve The pulmonic valve is not well visualized. Trace to mild pulmonic valvular regurgitation. Great Vessels The aortic root is normal size. Pericardium/Pleura There is no pericardial effusion. Interpretation Summary The left ventricle is normal in size. Left ventricular systolic function is normal. No regional wall motion abnormalities noted. Ejection Fraction = 60-65%. E/A reversal with TDI revealing impaired relaxation and normal filling pressure (med E' 5.4, E/E' 9) The right ventricular systolic function is normal. The left atrial size is normal. There is mild mitral annular calcification. There is mild tricuspid regurgitation. There is a mechanical aortic valve. The prosthetic aortic valve is well-seated. DI (dimentionless index) is 0.31 No aortic regurgitation is present. Trace to mild pulmonic valvular regurgitation. There is no pericardial effusion. Previous study is not available for comparison Hany Velasquez MD 05/25/2018 01:00 PM
[2018-05-25] MEDS: NEBIVOLOL 5 MG TABLET (FP) PO SCH (15:24)
[2018-05-25] MEDS: NORTRIPTYLINE HCL 25 MG CAPSULE PO SCH (15:25)
[2018-05-25] MEDS: PANTOPRAZOLE 40 MG TABLET (FP) PO SCH (15:25)
[2018-05-25] MEDS: ACETAMINOPHEN/CAFFEINE/BUTALBITAL 1 TAB PO PRN (15:28)
[2018-05-25] MEDS: WARFARIN NA 5 MG TABLET (UD) PO SCH (18:38)
[2018-05-25] MEDS: ATORVASTATIN CA 20 MG TABLET (FP) PO SCH (22:10)
--- NOTE | 2018-05-26 08:35 | DS ---
Physical Examination Vital Signs: Vital Signs Temperature 97.6 F 05/26/18 02:37 Pulse Rate 62 05/26/18 02:37 Respiratory Rate 20 05/26/18 02:37 Blood Pressure 108/50 05/26/18 02:37 O2 Sat by Pulse Oximetry (%) 97 05/25/18 21:00 Cardiovascular: Yes: S1, S2 Respiratory: Yes: Regular, CTA Bilaterally Gastrointestinal: Yes: Normal Bowel Sounds, Soft Labs: CBC, BMP 05/25/18 06:30 05/25/18 06:30 Discharge Summary Reason For Visit: CHEST PAIN Current Active Problems Chest pain (Acute) HTN (hypertension) (Acute) Hospital Course: - Problems (1) Chest pain Assessment/Plan: Follow CE -Cardiology consult -cta noted -no sig change -statin Cardio 1) Chest pain -Atypical in quality, non exertional, some msk component -Initial ECG non-ischemic and trop neg x 2 - nuc stress no ischemia -Other etiology of chest to consider in patient with prior ascending aortic repair is dissection/aneurysm. Had CTA in December 2017 with no aneurysm or dissection and CXR with normal silhoutette. -Suspicion is low for aortic disease but given her h/o BAV and its associated aortopathy (even after repair which she had), would have low threshold to rescan her Aorta if pain does not resolve - still complaining of chest pain today, CTA chest ordered. if benign no further cardiac workup as inpatient Code(s): R07.9 - CHEST PAIN, UNSPECIFIED Qualifiers: Chest pain type: other chest pain Qualified Code(s): R07.89 - Other chest pain; R07.8 - Other chest pain (2) Headache Assessment/Plan: -Ct of head-nad On License Of [facility] Code(s): R51 - HEADACHE (3) Status post aortic valve replacement with prosthetic valve Assessment/Plan: -follow inr -Continue coumadin, goal INR 2.5-3.5 -INR supratherapeuric this on admission, no bleeding -INR 2.4 would resume outpatient coumadin dose - no significant stenosis or regurgitation on echo, nl valve function Code(s): Z95.2 - PRESENCE OF PROSTHETIC HEART VALVE (4) Subtherapeutic international normalized ratio (INR) Assessment/Plan: -as above Code(s): R79.1 - ABNORMAL COAGULATION PROFILE (5) HTN (hypertension) Assessment/Plan: -add bystolic Code(s): I10 - ESSENTIAL (PRIMARY) HYPERTENSION Condition: Improved - Instructions Diet, Activity, Other Instructions: Close monitoring of inr --need to maintain between 2.5 and 3.5 follow up inr on Referrals: Jaqueline Powell [Primary Care Provider] - 05/28/18 - Home Medications Comprehensive Discharge Medication List: Ambulatory Orders Warfarin Na [Coumadin -] 4 mg PO DAILY 05/28/17 Nortriptyline HCl [Pamelor -] 25 mg PO DAILY 10/17/17 Pantoprazole Sodium [Protonix -] 40 mg PO DAILY 10/17/17 Acetaminophen [Tylenol .Regular Strength -] 650 mg PO Q4H PRN tablet 05/26/18 Atorvastatin Ca [Lipitor] 20 mg PO HS #30 tablet 05/26/18 Nebivolol [Bystolic -] 5 mg PO DAILY #30 tab 05/26/18
[2018-05-26] MEDS ORDERED: PT OWN MED DRAWER 7, Y5N ONE (09:02)
[2018-05-26] MEDS: NORTRIPTYLINE HCL 25 MG CAPSULE PO SCH (09:04)
[2018-05-26] MEDS: PANTOPRAZOLE 40 MG TABLET (FP) PO SCH (09:04)
[2018-05-26] MEDS: NEBIVOLOL 5 MG TABLET (FP) PO SCH (09:04)
[2018-05-26 09:11] VITALS: BP 122/80; PULSE 65; TEMP 98
--- NOTE | 2018-05-26 09:58 | PN ---
Progress Note (short form) - Note Progress Note: s: stable positional chest discomfort, palpitations. no dyspnea, not exertional Tele no arrhythmias noted - Objective Vital Signs Period Temp Pulse Resp BP Sys/Rose Pulse Ox Last 24 Hr 97.2 F-98 F 56-69 18-20 108-123/50-80 97 Constitutional: Yes: No Distress, Calm Eyes: Yes: WNL HENT: Yes: WNL Neck: Yes: WNL Cardiovascular: Yes: Regular Rate and Rhythm, Murmur Respiratory: Yes: CTA Bilaterally Gastrointestinal: Yes: Normal Bowel Sounds Musculoskeletal: Yes: WNL Extremities: Yes: WNL Edema: No Assessment/Plan echo: LV nl function, E/A reversal c/w impaired relaxation, mild TR, mechanical AVR well seated, DI 0.21, no AR nuclear pharm stress 04/2018: small znoe of apical fixed defect c/w attenuation, EF 62%, no ischemia CTA chest unchanged from prior 58 yo female known s/p mechanical AVR with ascsending aortic repair in 1999 on chronic AC, now admitted with atypical chest pain, palpitations. 1) Chest pain -Atypical in quality, non exertional, some msk component -Initial ECG non-ischemic and trop neg x 2 - nuc stress no ischemia - CTA chest unremarkable - no further cardiac workup as inpatient 2) Mechanical AVR -Continue coumadin, goal INR 2.5-3.5 -INR supratherapeuric this on admission, no bleeding -INR 3 today, would resume outpatient coumadin dose - no significant stenosis or regurgitation on echo, nl valve function 3) palpitations. -Continue tele -started on bysolic by PMD, ok to continue
== END 2018-05-26 09:14 | disposition home or self-care (01) | DRG 313 ==
LOC: JER 15:35 → JERBED 18:33 → J4W 05-23 07:41 → OBSVTOIN 05-24 13:49
PROVIDERS: ADMIT Family Medicine; ATTEND Family Medicine
DX: R07.89 Other chest pain (principal); F41.9 Anxiety disorder, unspecified; K21.9 Gastro-esophageal reflux disease without esophagitis; Z95.2 Presence of prosthetic heart valve; I10 Essential (primary) hypertension; R51 Headache; R00.2 Palpitations; R79.1 Abnormal coagulation profile
CPT/HCPCS: 36415; 70450-TC; 71046-TC-FY; 71275-TC; 78452-TC; 80053; 80061; 82550; 82553; 83721; 83735; 83880; 84443; 84484; 85025; 85610; 93005; 93010; 93017; 93306-TC; 99285-25; A9502; G0378; J2785; J7030

== ENCOUNTER 2018-10-18 15:24 | Observation (INO) | payer BC ==
--- NOTE | 2018-10-18 16:50 | PDOC ---
History of Present Illness - History of Present Illness Initial Comments: 10/18/18 16:49 Ms. Swan is a 58 yo female w/ pmh of anxiety, HLD, GERD, Aortic Aneurysm repair and Aortic valve replacement (2001, on coumadin) who presents for evaluation of 1 day history of midline chest pain radiating to her back. Patient reports pain has been constant since around midday yesterday. Has not had pain like this previously and denies any associated symptoms. The patient denies chest pain, shortness of breath, headache and dizziness. Denies fever, chills, nausea, vomit, diarrhea and constipation. Denies dysuria, frequency, urgency and hematuria. <Maximino Emanuel - Last Filed: 10/18/18 19:03> <Taniya Martel - Last Filed: 10/18/18 19:27> - General Chief Complaint: Chest Pain Stated Complaint: CHEST PAIN Time Seen by Provider: 10/18/18 16:22 Past History - Past Medical History Cardiac Disorders: Yes (thoracic aortic aneurysm,recent htm, and h/o tacchycardia) CVA: No COPD: No CHF: Yes Dementia: No Diabetes: No GI Disorders: Yes (gastroparesis diagnosed february 2017,) Disorders: No HTN: No Hypercholesterolemia: No Liver Disease: No Seizures: No Thyroid Disease: No - Surgical History Abdominal Surgery: Yes Appendectomy: No Cardiac Surgery: Yes (ANEURYSM REPAIR, VALVE aortic aneurysm repair and aortic valve replaced in) Cholecystectomy: No Orthopedic Surgery: No - Immunization History Immunization Up to Date: Yes - Suicide/Smoking/Psychosocial Hx Smoking Status: No Smoking History: Never smoked Have you smoked in the past 12 months: No Number of Cigarettes Smoked Daily: 0 Cigars Per Day: 0 Hx Alcohol Use: No Drug/Substance Use Hx: No Substance Use Type: None Hx Substance Use Treatment: No <Maximino Emanuel - Last Filed: 10/18/18 19:03> <Taniya Martel - Last Filed: 10/18/18 19:27> - Past Medical History Allergies/Adverse Reactions: Allergies Allergy/AdvReac Type Severity Reaction Status Date / Time No Known Allergies Allergy Verified 10/18/18 15:33 Home Medications: Ambulatory Orders Warfarin Na [Coumadin -] 4 mg PO DAILY 05/28/17 Nortriptyline HCl [Pamelor -] 25 mg PO DAILY 10/17/17 Pantoprazole Sodium [Protonix -] 40 mg PO DAILY 10/17/17 Acetaminophen [Tylenol .Regular Strength -] 650 mg PO Q4H PRN tablet 05/26/18 Atorvastatin Ca [Lipitor] 20 mg PO HS #30 tablet 05/26/18 Nebivolol [Bystolic -] 5 mg PO DAILY #30 tab 05/26/18 Review of Systems - Review of Systems Comments:: 10/18/18 16:49 GENERAL/CONSTITUTIONAL: No fever or chills. No weakness. HEAD, EYES, EARS, NOSE AND THROAT: No change in vision. No ear pain or discharge. No sore throat. CARDIOVASCULAR: +Midline chest pain radiating to back as described. RESPIRATORY: No cough, wheezing, or hemoptysis. GASTROINTESTINAL: No nausea, vomiting, diarrhea or constipation. GENITOURINARY: No dysuria, frequency, or change in urination. MUSCULOSKELETAL: No joint or muscle swelling or pain. No neck or back pain. SKIN: No rash NEUROLOGIC: No headache, vertigo, loss of consciousness, or change in strength/ sensation. ENDOCRINE: No increased thirst. No abnormal weight change HEMATOLOGIC/LYMPHATIC: No anemia, easy bleeding, or history of blood clots. ALLERGIC/IMMUNOLOGIC: No hives or skin allergy. <Maximino Emanuel - Last Filed: 10/18/18 19:03> *Physical Exam - Vital Signs Last Vital Signs Temp Pulse Resp BP Pulse Ox 97.8 F 95 H 18 164/88 99 10/18/18 15:31 10/18/18 15:31 10/18/18 15:31 10/18/18 16:39 10/18/18 15:31 - Physical Exam Comments: 10/18/18 16:50 GENERAL: Awake, alert, and fully oriented, in no acute distress HEAD: No signs of trauma, normocephalic, atraumatic EYES: PERRLA, EOMI, sclera anicteric, conjunctiva clear ENT: Auricles normal inspection, hearing grossly normal, nares patent, oropharynx clear without exudates. Moist mucosa NECK: Normal ROM, supple, no lymphadenopathy, JVD, or masses LUNGS: No distress, speaks full sentences, clear to auscultation bilaterally HEART: Regular rate and rhythm, normal S1 and S2, no murmurs, rubs or gallops, peripheral pulses normal and equal bilaterally. ABDOMEN: Soft, nontender, normoactive bowel sounds. No guarding, no rebound. No masses EXTREMITIES: Normal inspection, Normal range of motion, no edema. No clubbing or cyanosis. NEUROLOGICAL: Cranial nerves II through XII grossly intact. Normal speech, normal gait, no focal sensorimotor deficits SKIN: Warm, Dry, normal turgor, no rashes or lesions noted. <Maximino Emanuel - Last Filed: 10/18/18 19:03> - Vital Signs Last Vital Signs Temp Pulse Resp BP Pulse Ox 97.8 F 95 H 18 164/88 99 10/18/18 15:31 10/18/18 15:31 10/18/18 15:31 10/18/18 16:39 10/18/18 15:31 <Taniya Martel - Last Filed: 10/18/18 19:27> Moderate Sedation - Procedure Monitoring Vital Signs: Procedure Monitoring Vital Signs Temperature 97.8 F 10/18/18 15:31 Pulse Rate 95 H 10/18/18 15:31 Respiratory Rate 18 10/18/18 15:31 Blood Pressure 164/88 10/18/18 16:39 O2 Sat by Pulse Oximetry (%) 99 10/18/18 15:31 <Maximino Emanuel - Last Filed: 10/18/18 19:03> - Procedure Monitoring Vital Signs: Procedure Monitoring Vital Signs Temperature 97.8 F 10/18/18 15:31 Pulse Rate 95 H 10/18/18 15:31 Respiratory Rate 18 10/18/18 15:31 Blood Pressure 164/88 10/18/18 16:39 O2 Sat by Pulse Oximetry (%) 99 10/18/18 15:31 <Taniya Martel - Last Filed: 10/18/18 19:27> Heart Score/ECG Review - History History: Highly suspicious - Electrocardiogram EKG: Non specific repolarization disturbance - Age Age: 45-65 - Risk Factors Risk Factors Heart Score: Yes Hx Hypercholesterolemia Based on the list above the patient has:: >/=3 risk factors or Hx atherosclerotic disease - Troponin Troponin: </= normal limit - Score Heart Score - Total: 6 <Maximino Emanuel - Last Filed: 10/18/18 19:03> ED Treatment Course - LABORATORY CBC & Chemistry Diagram: 10/18/18 17:13 10/18/18 17:13 <Maximino Emanuel - Last Filed: 10/18/18 19:03> - LABORATORY CBC & Chemistry Diagram: 10/18/18 17:13 10/18/18 17:13 - ADDITIONAL ORDERS Additional order review: Laboratory Results 10/18/18 10/18/18 10/18/18 17:13 17:13 17:13 PT with INR 27.60 H INR 2.32 H PTT (Actin FS) 44.5 H Sodium 140 Potassium 4.2 Chloride 104 Carbon Dioxide 28 Anion Gap 8 BUN 15 Creatinine 1.0 Creat Clearance w eGFR 57.15 Random Glucose 105 Calcium 9.0 Total Bilirubin 0.8 AST 22 ALT 45 Alkaline Phosphatase 106 Creatine Kinase 118 Troponin I < 0.02 Total Protein 7.2 Albumin 3.9 10/18/18 17:13 RBC 4.80 MCV 83.6 MCHC 34.7 RDW 13.7 MPV 8.1 Neutrophils % 64.3 Lymphocytes % 26.5 Monocytes % 6.7 Eosinophils % 1.9 Basophils % 0.6 - Medications Given in the ED: ED Medications Discontinued Medications Generic Name Dose Route Start Last Admin Trade Name Freq PRN Reason Stop Dose Admin Morphine Sulfate 4 mg 10/18/18 17:06 10/18/18 17:10 Morphine Injection - IVPUSH 10/18/18 17:07 4 mg ONCE ONE Administration Ondansetron HCl 4 mg 10/18/18 17:06 10/18/18 17:11 Zofran Injection IVPUSH 10/18/18 17:07 4 mg ONCE ONE Administration <Taniya Martel - Last Filed: 10/18/18 19:27> Medical Decision Making - Medical Decision Making 10/18/18 17:37 Ms. Swan is a 58 yo female w/ pmh as described who presents for evaluation of chest pain in the setting of prior aneurysm and aortic mechanical valve. Given patient's expansive pmh and concerning history, decision made to CTA for r /o dissection prior to laboratory evaluation. Patient labs grossly wnl as below. CTA chest/abdomen negative for acute pathology. No concerning findings at this time. Admitting patient for further cardiology evaluation and telemetry overnight. 10/18/18 18:52 Of note, patient INR noted to be mildly sub-therapeutic as below. Laboratory Results - last 24 hr 10/18/18 10/18/18 10/18/18 17:13 17:13 17:13 WBC 8.6 RBC 4.80 Hgb 13.9 Hct 40.2 MCV 83.6 MCH 29.0 MCHC 34.7 RDW 13.7 Plt Count 349 MPV 8.1 Absolute Neuts (auto) 5.5 Neutrophils % 64.3 Lymphocytes % 26.5 Monocytes % 6.7 Eosinophils % 1.9 Basophils % 0.6 Nucleated RBC % 0 PT with INR 27.60 H INR 2.32 H PTT (Actin FS) 44.5 H Sodium 140 Potassium 4.2 Chloride 104 Carbon Dioxide 28 Anion Gap 8 BUN 15 Creatinine 1.0 Creat Clearance w eGFR 57.15 Random Glucose 105 Calcium 9.0 Total Bilirubin 0.8 AST 22 ALT 45 Alkaline Phosphatase 106 Creatine Kinase Troponin I Total Protein 7.2 Albumin 3.9 10/18/18 17:13 WBC RBC Hgb Hct MCV MCH MCHC RDW Plt Count MPV Absolute Neuts (auto) Neutrophils % Lymphocytes % Monocytes % Eosinophils % Basophils % Nucleated RBC % PT with INR INR PTT (Actin FS) Sodium Potassium Chloride Carbon Dioxide Anion Gap BUN Creatinine Creat Clearance w eGFR Random Glucose Calcium Total Bilirubin AST ALT Alkaline Phosphatase Creatine Kinase 118 Troponin I < 0.02 Total Protein Albumin <Maximino Emanuel - Last Filed: 10/18/18 19:03> *DC/Admit/Observation/Transfer - Discharge Dispostion Decision to Admit order: Yes <Maximino Emanuel - Last Filed: 10/18/18 19:03> - Discharge Dispostion Decision to Admit order: Yes <Taniya Martel - Last Filed: 10/18/18 19:27> Diagnosis at time of Disposition: Chest pain Qualifiers: Chest pain type: unspecified Qualified Code(s): R07.9 - Chest pain, unspecified Aortic aneurysm Qualifiers: Aortic location: unspecified Presence of rupture: without rupture Qualified Code(s): I71.9 - Aortic aneurysm of unspecified site, without rupture - Referrals Referrals: Jaqueline Powell [Primary Care Provider] - - Patient Instructions - Post Discharge Activity
--- NOTE | 2018-10-18 17:01 | PDOC ---
Attending Attestation - HPI HPI: 10/18/18 17:11 The patient is a 58 year old female with a significant past medical history of TIA, Aneurysm, HTN, Bicuspid AV s/ Mechanical AVR and aortic aneurysm repair ( 2001 [facility]) who presents to the ED with chest pain for one day. Patient reports one day of progressively worsening intermittent midline chest pain that radiates to her back. Denies shortness of breath. Denies fever or chills. Denies abdominal pain, nausea, vomiting or diarrhea. Denies any other symptoms. <Mohini Frost - Last Filed: 10/18/18 17:23> - Resident Resident Name: Maximino Emanuel - ED Attending Attestation I have performed the following: I have examined & evaluated the patient, The case was reviewed & discussed with the resident, I agree w/resident's findings & plan, Exceptions are as noted - Physicial Exam PE: 10/18/18 19:24 wnwd 58 yo female experienced midline chest pain radiating to her back head ncat neck no jvd lungs cta b/l cvs [id number] abd protuberant, nontender ext no edema,clubbing,cyanosis skin warm and dry no cva tenderness neuro axox3,no focal neuro deficits - Medical Decision Making 10/18/18 19:40 cta chest: -aorta is normal in course an caliber WITHOUT dissection. the major branches are widely patent There is an aortic valve prothesis with what appears to be graft material about the proximal ascending aorta -The pulmonary arteries are well opacified . There is no evidence of pulmonary embolism. CT chest no airspace consolidation ,no infiltrates, no pleural effusions lingular subsegmental atelectasis or scarring The tracheobronchial tree is patent the heart is not enlarged ,thre is oleft ventricular hypertrophy,no pericardial effusion CT abdoemn and pelvis: the liver is mildly enlarged 1.9 cm lesion in the spleen with peripheral nodular enhancement .likely a hemangioma the upper abdominal visceral organs are otherwise unremarkable tiny umbilical hernia containing fat there is no bowel distension the appendix is normal no intra abdominal free air,free fluid or locuated collections 10/18/18 20:01 pt admitted to telemetry OBS, first troponin was negative,pt comfortable currently 10/18/18 21:28 <Taylor Reyez - Last Filed: 10/18/18 21:28> Attestations - Attestations 10/18/18 17:12 Documentation prepared by Mohini Frost, acting as manager medical affairs for Taylor Reyez MD <Mohini Frost - Last Filed: 10/18/18 17:23>
[2018-10-18] MEDS ORDERED: ONDANSETRON 4 MG/2 ML VIAL IVPUSH ONE (17:06)
[2018-10-18] MEDS ORDERED: morphine CARPU-JECT 4 MG/1 ML DISP.SYRIN IVPUSH ONE (17:06)
[2018-10-18] MEDS ORDERED: ONDANSETRON 4 MG/2 ML VIAL ONE (17:10)
[2018-10-18] MEDS ORDERED: morphine SULFATE 4 MG/ML VIAL ONE (17:10)
[2018-10-18 17:21] LABS: BASO % 0.6 % (0-2.0); EOS % 1.9 % (0-4.5); HEMATOCRIT 40.2 % (32.4-45.2); HEMOGLOBIN 13.9 GM/dL (10.7-15.3); LYMPH % 26.5 % (8-40); MCHC 34.7 g/dl (32.0-36.0); MEAN CELL VOLUME 83.6 fl (80-96); MEAN PLT VOLUME 8.1 fl (7.5-11.1); MONO % 6.7 % (3.8-10.2); NEUT % 64.3 % (42.8-82.8); PLATELET COUNT 349 K/MM3 (134-434); RDW 13.7 % (11.6-15.6); WHITE BLOOD COUNT 8.6 K/mm3 (4.0-10.0)
[2018-10-18 17:47] LABS: INR 2.32 (0.83-1.09); PROTHROMBIN TIME (PATIENT) 27.6 SEC (9.7-13.0)
[2018-10-18 17:49] LABS: ACTIVATED PTT 44.5 SECONDS (25.2-36.5)
[2018-10-18 17:55] LABS: ALBUMIN 3.9 g/dl (3.4-5.0); ALK PHOS 106 U/L (45-117); ANION GAP 8 MMOL/L (8-16); BILIRUBIN,TOTAL 0.8 mg/dL (0.2-1); BLOOD UREA NITROGEN 15 mg/dL (7-18); CHLORIDE 104 mmol/L (98-107); CO2 28 mmol/L (21-32); GLUCOSE,RANDOM 105 mg/dL (74-106); POTASSIUM 4.2 mmol/L (3.5-5.1); SGOT/AST 22 U/L (15-37); SGPT/ALT 45 U/L (13-61); SODIUM 140 mmol/L (136-145); TOT PROT 7.2 g/dl (6.4-8.2)
--- NOTE | 2018-10-18 19:40 | HP ---
Admitting History and Physical - Primary Care Physician PCP: Jaqueline Powell - Admission Chief Complaint: Chest Pain History of Present Illness: This is a 58 y/o woman with a PMHx of: HLD, GERD, Gastroparesis, Migraines, Aneurysm Repair (2001), Aortic Valve Replacement (2001). Who presents to the ED wit chest pressure radiating to her back, SOB on exertion, diaphoresis, nausea and headache. She describes the CP as "stabbing pressure" which started at rest. Patient reports having a near syncopal episode, she denies head injury. She reports orthopnea x 1 month. History Source: Patient Limitations to Obtaining History: No Limitations - Past Medical History ASSIGNER: Yes: TIA Cardiovascular: Yes: Aneurysm, HTN, Other (Bicuspid AV s/p Mechanical AVR and aortic aneursym repair 2001 [facility]). No: AFIB, Aortic Insufficiency, Aortic Stenosis, CAD, CHF, Deep Vein Thrombosis, Hyperlipdemia, [place], Mitral Insufficiency, Mitral Stenosis, Murmur, Pulmonary Hypertension Gastrointestinal: Yes: Other (POSSIBLE GB DISEASE???) Hepatobiliary: Yes: Other (as above) ...LMP: 11/14/03 - Past Surgical History Past Surgical History: Yes: Valve Replacement. No: None, AAA Repair, AICD, Amputation, Appendectomy, Arthrosocopy, AV Fistula/Graft, Bariatric Surgery, Breast Biopsy, Bypass, CABG, Carotid Endarterectomy, Cataract Removal, Cholecystectomy, Colectomy, Colonoscopy, Colostomy, Craniotomy, , Cystectomy, Hernia Repair, Hysterectomy, Ileal Conduit, Ileosotomy, Joint Replacement, Kidney Transplant, Laminectomy, Liver Transplant, Mastectomy, Nephrectomy, Oopherectomy, Orchiectomy, Permanent Pacemaker, Prostatectomy, Splenectomy, Stent, Thoracotomy, TURP, Tonsillectomy, Tubal Ligation, Upper Endoscopy, Vasectomy, Vein Stripping/Ligation Additional Past Surgical History: Aneurysm Repair - Smoking History Smoking history: Never smoked Have you smoked in the past 12 months: No Aproximately how many cigarettes per day: 0 - Alcohol/Substance Use Hx Alcohol Use: No History of Substance Use: reports: None - Social History Usual Living Arrangement: Yes: With Spouse ADL: Independent 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 History of Recent Travel: No Home Medications - Allergies Allergies/Adverse Reactions: Allergies Allergy/AdvReac Type Severity Reaction Status Date / Time No Known Allergies Allergy Verified 10/18/18 15:33 - Home Medications Home Medications: Ambulatory Orders Warfarin Na [Coumadin -] 4 mg PO DAILY 05/28/17 Nortriptyline HCl [Pamelor -] 25 mg PO DAILY 10/17/17 Pantoprazole Sodium [Protonix -] 40 mg PO DAILY 10/17/17 Family Disease History - Family Disease History Family Disease History: Heart Disease: Father ([place] ), Other: Mother ( ascending aortic aneurysm) Review of Systems - Review of Systems Constitutional: reports: Diaphoresis Eyes: reports: No Symptoms HENT: reports: No Symptoms Neck: reports: No Symptoms Cardiovascular: reports: Chest Pain Respiratory: reports: Orthopnea, SOB on Exertion Gastrointestinal: reports: No Symptoms Genitourinary: reports: No Symptoms Breasts: reports: No Symptoms Reported Musculoskeletal: reports: Back Pain Integumentary: reports: No Symptoms Neurological: reports: Syncope Endocrine: reports: No Symptoms Hematology/Lymphatic: reports: No Symptoms Psychiatric: reports: No Symptoms Physical Examination Vital Signs: Vital Signs Temperature 97.8 F 10/18/18 15:31 Pulse Rate 95 H 10/18/18 15:31 Respiratory Rate 18 10/18/18 15:31 Blood Pressure 164/88 10/18/18 16:39 O2 Sat by Pulse Oximetry (%) 99 10/18/18 15:31 Constitutional: Yes: Well Nourished, No Distress, Calm Eyes: Yes: WNL, Conjunctiva Clear, EOM Intact, PERRL HENT: Yes: WNL, Atraumatic, Normocephalic Neck: Yes: WNL, Supple, Trachea Midline Cardiovascular: Yes: Regular Rate and Rhythm, Murmur, S1, S2 Respiratory: Yes: WNL, Regular, CTA Bilaterally Gastrointestinal: Yes: WNL, Normal Bowel Sounds, Soft, Abdomen, Obese ...Rectal Exam: Yes: Deferred Renal/: Yes: WNL Breast(s): Yes: WNL Musculoskeletal: Yes: WNL Extremities: Yes: WNL Edema: No Peripheral Pulses WNL: Yes Neurological: Yes: WNL, Alert, Oriented, Cran Nerves II-XII Intact ...Motor Strength: WNL Psychiatric: Yes: WNL, Alert, Oriented Labs: CBC, BMP 10/18/18 17:13 02/03/19 17:13 Imaging - Results Chest X-ray: Image Reviewed Cat Scan: Report Reviewed, Image Reviewed EKG: Image Reviewed Problem List - Problems (1) Chest pain Assessment/Plan: r/o ACS HEART Score 4 KENIA Score 1 PERC Rule 1 Wells Score 0 CTA- no dissection, no PE, no airspce consolidation, infiltrates or pleural effusion Continue cardiac monitoring Serial Enzymes Appreciate Cardiology consult Echo 05/25/18- EF 60-65%, LVSF nl, mild TR, trace-mod PVR, no aortic regurgitation Stress Test 05/24/18- neg nuclear stress, LV 62%, small apical fixed defect Continue Asa Morphine Sulfate prn Code(s): R07.9 - CHEST PAIN, UNSPECIFIED Qualifiers: Chest pain type: unspecified Qualified Code(s): R07.9 - Chest pain, unspecified (2) HTN (hypertension) Assessment/Plan: Sub optimal Monitor BP No current home med Consider BB or CCB Monitor renal function Code(s): I10 - ESSENTIAL (PRIMARY) HYPERTENSION (3) GERD (gastroesophageal reflux disease) Assessment/Plan: Continue Protonix Code(s): K21.9 - GASTRO-ESOPHAGEAL REFLUX DISEASE WITHOUT ESOPHAGITIS (4) HLD (hyperlipidemia) Assessment/Plan: Lipid Panel in am No current med per pt Consider statin Code(s): E78.5 - HYPERLIPIDEMIA, UNSPECIFIED (5) Aortic aneurysm Assessment/Plan: s/p aneurysm repair Code(s): I71.9 - AORTIC ANEURYSM OF UNSPECIFIED SITE, WITHOUT RUPTURE Qualifiers: Aortic location: unspecified Presence of rupture: without rupture Qualified Code(s): I71.9 - Aortic aneurysm of unspecified site, without rupture (6) Status post aortic valve replacement with prosthetic valve Assessment/Plan: INR 2.32 Continue Coumadin Goal INR 2.5-3.5 Series INRs Code(s): Z95.2 - PRESENCE OF PROSTHETIC HEART VALVE (7) Fatty liver Assessment/Plan: CTAP showed-there is a 1.9 cm enhancing lesion in the spleen, interiorly likely representing a hemangioma, boderline hepatomegaly with fatty infiltration. A few tiny diverticula in the proximal sigmoid colon with evidence of acute diverticulitis Consider GI consult Monitor BMP Monitor vitals Code(s): K76.0 - FATTY (CHANGE OF) LIVER, NOT ELSEWHERE CLASSIFIED (8) Anxiety Assessment/Plan: Continue nortriptyline Code(s): F41.9 - ANXIETY DISORDER, UNSPECIFIED Assessment/Plan This is a 58 y/o woman with a PMHx of: HTN, HLD, GERD, Aneurysm Repair, Aortic Valve Replacement (2001), Anxiety. Placed in Tele Observation for Chest Pain r/ o ACS for further evaluation of their emergent condition. Plan: See Problem List FEN PO fluids as tolerated Replete lytes prn Low Na Diet DVT ppx OOB SCDs Continue Coumadin Dispo: Observation Visit type - Emergency Visit Emergency Visit: Yes ED Registration Date: 10/18/18 Care time: The patient presented to the Emergency Department on the above date and was hospitalized for further evaluation of their emergent condition. - New Patient This patient is new to me today: Yes Date on this admission: 10/18/18 - Critical Care Critical Care patient: No
[2018-10-18] MEDS ORDERED: ONDANSETRON 4 MG/2 ML VIAL IVPUSH PRN (20:38)
[2018-10-18] MEDS ORDERED: WARFARIN NA 2 MG TABLET (UD) PO SCH (22:30)
[2018-10-18] MEDS: PANTOPRAZOLE 40 MG TABLET (FP) PO SCH (23:15)
[2018-10-18] MEDS: NORTRIPTYLINE HCL 25 MG CAPSULE PO SCH (23:15)
[2018-10-18 23:39] VITALS: BMI 33.4
[2018-10-19 07:21] LABS: ANION GAP 3 MMOL/L (8-16); BLOOD UREA NITROGEN 13 mg/dL (7-18); CALCIUM 8.3 mg/dL (8.5-10.1); CHLORIDE 104 mmol/L (98-107); CO2 32 mmol/L (21-32); CREATININE 0.9 mg/dL (0.55-1.3); GLUCOSE,RANDOM 89 mg/dL (74-106); MAGNESIUM 2.3 mg/dL (1.8-2.4); POTASSIUM 4.4 mmol/L (3.5-5.1); SODIUM 140 mmol/L (136-145)
[2018-10-19 08:32] LABS: INR 1.99 (0.83-1.09); PROTHROMBIN TIME (PATIENT) 23.6 SEC (9.7-13.0)
[2018-10-19] MEDS: morphine SULFATE 4 MG/ML VIAL IVPUSH PRN ×2 (08:52→13:44)
--- NOTE | 2018-10-19 09:53 | EKG ---
Test Reason : Blood Pressure : / mmHG Vent. Rate : 094 BPM Atrial Rate : 094 BPM P-R Int : 158 ms QRS Dur : 096 ms QT Int : 370 ms P-R-T Axes : 016 -59 036 degrees QTc Int : 462 ms NORMAL SINUS RHYTHM LEFT AXIS DEVIATION MINIMAL VOLTAGE CRITERIA FOR LVH, MAY BE NORMAL VARIANT ANTEROSEPTAL INFARCT (CITED ON OR BEFORE 30-DEC-2016) ABNORMAL ECG WHEN COMPARED WITH ECG OF 22-MAY-2018 15:35, NO SIGNIFICANT CHANGE WAS FOUND Confirmed by ANKIT CRUZ MD ([id number]) on 10/19/2018 9:53:43 AM Referred By: Confirmed By:ANKIT CRUZ MD
[2018-10-19] MEDS: PANTOPRAZOLE 40 MG TABLET (FP) PO SCH (09:56)
--- NOTE | 2018-10-19 11:27 | PN ---
Progress Note, Physician Chief Complaint: Chest pain Hx aortic aneurysm repair History of Present Illness: Previous notes and events reviewed awake and alert NAD denies chest pain, SOB CT scan show 1.9cm lesion on spleen complain of constipation - Current Medication List Current Medications: Active Medications Morphine Sulfate (Morphine Sulfate) 4 mg IVPUSH Q6H PRN PRN Reason: PAIN LEVEL 7 - 10 Last Admin: 10/19/18 08:52 Dose: 4 mg Nortriptyline HCl (Pamelor -) 25 mg PO HS [facility] Last Admin: 10/18/18 23:15 Dose: 25 mg Ondansetron HCl (Zofran Injection) 4 mg IVPUSH Q6H PRN PRN Reason: NAUSEA AND/OR VOMITING Pantoprazole Sodium (Protonix -) 40 mg PO DAILY [facility] Last Admin: 10/19/18 09:56 Dose: 40 mg Warfarin Sodium (Coumadin -) 4 mg PO SUTUWETHSA@1800 [facility] Last Admin: 10/18/18 23:15 Dose: 4 mg Warfarin Sodium (Coumadin -) 3 mg PO MOFR@1800 [facility] - Objective Vital Signs: Vital Signs Temperature 97.9 F 10/19/18 10:00 Pulse Rate 86 10/19/18 10:00 Respiratory Rate 18 10/19/18 10:00 Blood Pressure 117/71 10/19/18 10:00 O2 Sat by Pulse Oximetry (%) 98 10/19/18 09:00 Constitutional: Yes: Well Nourished, No Distress, Calm Eyes: Yes: Conjunctiva Clear Cardiovascular: Yes: Regular Rate and Rhythm Respiratory: Yes: Regular, CTA Bilaterally Gastrointestinal: Yes: Normal Bowel Sounds, Soft Musculoskeletal: Yes: WNL Extremities: Yes: WNL Edema: No Neurological: Yes: Alert, Oriented Psychiatric: Yes: Alert, Oriented Labs: CBC, BMP 10/18/18 17:13 10/19/18 05:30 INR, PTT INR 1.99 (0.83-1.09) H 10/19/18 07:36 Troponin, BNP 10/18/18 10/18/18 10/19/18 17:13 20:00 05:30 Troponin I < 0.02 < 0.02 < 0.02 10/19/18 05:30 Troponin I Cancelled <Kristie Allen - Last Filed: 10/19/18 11:22> - Current Medication List Current Medications: Active Medications Docusate Sodium (Colace -) 300 mg PO [facility] Morphine Sulfate (Morphine Sulfate) 4 mg IVPUSH Q6H PRN PRN Reason: PAIN LEVEL 7 - 10 Last Admin: 10/19/18 13:44 Dose: 4 mg Nortriptyline HCl (Pamelor -) 25 mg PO HS [facility] Last Admin: 10/18/18 23:15 Dose: 25 mg Ondansetron HCl (Zofran Injection) 4 mg IVPUSH Q6H PRN PRN Reason: NAUSEA AND/OR VOMITING Pantoprazole Sodium (Protonix -) 40 mg PO DAILY [facility] Last Admin: 10/19/18 09:56 Dose: 40 mg Senna (Senna -) 1 tab PO BID [facility] Warfarin Sodium (Coumadin -) 4 mg PO SUTUWETHSA@1800 [facility] Last Admin: 10/18/18 23:15 Dose: 4 mg Warfarin Sodium (Coumadin -) 3 mg PO MOFR@1800 [facility] Last Admin: 10/19/18 17:02 Dose: 3 mg - Objective Vital Signs: Vital Signs Temperature 97.6 F 10/19/18 14:00 Pulse Rate 81 10/19/18 14:00 Respiratory Rate 20 10/19/18 14:00 Blood Pressure 137/85 10/19/18 14:00 O2 Sat by Pulse Oximetry (%) 98 10/19/18 09:00 Labs: CBC, BMP 10/18/18 17:13 10/19/18 05:30 INR, PTT INR 1.99 (0.83-1.09) H 10/19/18 07:36 <Scott Hogue - Last Filed: 10/19/18 17:04> Problem List - Problems (1) Chest pain Assessment/Plan: -cardiology consult pending -troponin neg x 3 -tele monitoring Code(s): R07.9 - CHEST PAIN, UNSPECIFIED Qualifiers: Chest pain type: unspecified Qualified Code(s): R07.9 - Chest pain, unspecified (2) HTN (hypertension) Assessment/Plan: -low Na diet -monitor BP q4h Code(s): I10 - ESSENTIAL (PRIMARY) HYPERTENSION (3) Status post aortic valve replacement with prosthetic valve Assessment/Plan: -on Coumadin -daily INR -cardiology consult Code(s): Z95.2 - PRESENCE OF PROSTHETIC HEART VALVE (4) Constipation Assessment/Plan: -start on colace and senna Code(s): K59.00 - CONSTIPATION, UNSPECIFIED (5) Lesion of spleen Assessment/Plan: -GI consult Code(s): D73.9 - DISEASE OF SPLEEN, UNSPECIFIED <Kristie Allen - Last Filed: 10/19/18 11:22> Assessment/Plan dvt ppx see problem list <Kristie Allen - Last Filed: 10/19/18 11:22> PATIENT SEEN AND EXAMINED AND I AGREE WITH ABOVE NOTE <Scott Hogue - Last Filed: 10/19/18 17:04>
--- NOTE | 2018-10-19 14:19 | CON.CARD ---
Consult Consult Specialty:: cardiology Referred by:: Mykel Reason for Consultation:: Chest pain - History of Present Illness Chief Complaint: Chest pain History of Present Illness: The patient is a 58-year-old female, we've a history of hypertension, hyperlipidemia, bicuspid aortic valve, aortopathy, aortic stenosis, status post mechanical AVR with aortic aneurysm repair, TIA, now presenting with chest pains at rest. The patient described pressure-like symptoms lasting for hours. Denied such symptoms while walking. As per the patient her preop workup revealed normal coronary arteries. 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 No: AFIB, Aortic Insufficiency, Aortic Stenosis, CAD, CHF, Deep Vein Thrombosis, Hyperlipdemia, [place], Mitral Insufficiency, Mitral Stenosis, Murmur, Pulmonary Hypertension Gastrointestinal: Yes: Other (POSSIBLE GB DISEASE???) Hepatobiliary: Yes: Other (as above) ...LMP: 11/14/03 ...: No - Past Surgical History Past Surgical History: Yes: Valve Replacement. No: None, AAA Repair, AICD, Amputation, Appendectomy, Arthrosocopy, AV Fistula/Graft, Bariatric Surgery, Breast Biopsy, Bypass, CABG, Carotid Endarterectomy, Cataract Removal, Cholecystectomy, Colectomy, Colonoscopy, Colostomy, Craniotomy, , Cystectomy, Hernia Repair, Hysterectomy, Ileal Conduit, Ileosotomy, Joint Replacement, Kidney Transplant, Laminectomy, Liver Transplant, Mastectomy, Nephrectomy, Oopherectomy, Orchiectomy, Permanent Pacemaker, Prostatectomy, Splenectomy, Stent, Thoracotomy, TURP, Tonsillectomy, Tubal Ligation, Upper Endoscopy, Vasectomy, Vein Stripping/Ligation - Alcohol/Substance Use Hx Alcohol Use: No - Smoking History Smoking history: Never smoked Have you smoked in the past 12 months: No Aproximately how many cigarettes per day: 0 - Social History ADL: Independent History of Recent Travel: No Home Medications - Allergies Allergies/Adverse Reactions: Allergies Allergy/AdvReac Type Severity Reaction Status Date / Time No Known Allergies Allergy Verified 10/18/18 15:33 - Home Medications Home Medications: Ambulatory Orders Warfarin Na [Coumadin -] 4 mg PO DAILY 05/28/17 Nortriptyline HCl [Pamelor -] 25 mg PO DAILY 10/17/17 Pantoprazole Sodium [Protonix -] 40 mg PO DAILY 10/17/17 Family Disease History - Family Disease History Family Disease History: Other: Mother (ascending aortic aneurysm) Review of Systems - Review of Systems Constitutional: reports: No Symptoms Eyes: reports: No Symptoms HENT: reports: No Symptoms Neck: reports: No Symptoms Cardiovascular: reports: Chest Pain Respiratory: reports: No Symptoms Gastrointestinal: reports: No Symptoms Genitourinary: reports: No Symptoms Breasts: reports: No Symptoms Reported Musculoskeletal: reports: No Symptoms Integumentary: reports: No Symptoms Neurological: reports: No Symptoms Endocrine: reports: No Symptoms Hematology/Lymphatic: reports: No Symptoms Psychiatric: reports: No Symptoms Vital Signs: Vital Signs Temperature 97.9 F 10/19/18 10:00 Pulse Rate 86 10/19/18 10:00 Respiratory Rate 18 10/19/18 10:00 Blood Pressure 117/71 10/19/18 10:00 O2 Sat by Pulse Oximetry (%) 98 10/19/18 09:00 Constitutional: Yes: Well Nourished, No Distress, Calm Eyes: Yes: WNL, Conjunctiva Clear, EOM Intact HENT: Yes: WNL, Atraumatic, Normocephalic Neck: Yes: WNL, Supple, Trachea Midline Respiratory: Yes: WNL, Regular, CTA Bilaterally Gastrointestinal: Yes: WNL, Normal Bowel Sounds, Soft Renal/: Yes: WNL Cardiovascular: Yes: WNL, Regular Rate and Rhythm JVD: No Carotid Bruit: No PMI: Non-Displaced Heart Sounds: Yes: S1, S2 Murmur: Yes: Systolic Murmur, Grade 2 Musculoskeletal: Yes: WNL Extremities: Yes: WNL Edema: No Peripheral Pulses: 2+ Left Carotid, 2+ Right Carotid, 2+ Left Femoral, 2+ Right Femoral, 2+ Left Popliteal, 2+ Right Popliteal, 2+ Left Doralis Pedis, 2+ Right Dorsalis Pedis Integumentary: Yes: WNL Neurological: Yes: WNL ...Motor Strength: WNL Psychiatric: Yes: WNL - Other Data Labs, Other Data: CBC, BMP 10/18/18 17:13 10/19/18 05:30 INR, PTT INR 1.99 (0.83-1.09) H 10/19/18 07:36 Troponin, BNP 10/18/18 10/18/18 10/19/18 17:13 20:00 05:30 Troponin I < 0.02 < 0.02 < 0.02 10/19/18 05:30 Troponin I Cancelled Troponin, BNP 10/18/18 10/18/18 10/19/18 17:13 20:00 05:30 Troponin I < 0.02 < 0.02 < 0.02 10/19/18 05:30 Troponin I Cancelled Assessment/Plan The patient is a 58-year-old female, we've a history of hypertension, hyperlipidemia, bicuspid aortic valve, aortopathy, aortic stenosis, status post mechanical AVR with aortic aneurysm repair, TIA, now presenting with chest pains at rest. The patient described pressure-like symptoms lasting for hours. Denied such symptoms while walking. As per the patient her preop workup revealed normal coronary arteries. The patient has atypical chest pains. Then nonexertional. Do not limit her physical activity. There is no evidence of ischemia nor acute coronary syndrome. Please arrange for an echocardiogram. Please arrange for a pharmacological nuclear stress test. The patient is stable.
[2018-10-19] MEDS ORDERED: WARFARIN NA 3 MG TABLET PO SCH (18:00)
[2018-10-19] MEDS: SENNOSIDES 8.6MG TABLET (FP) PO SCH (21:26)
[2018-10-19] MEDS: DOCUSATE SODIUM 100 MG CAPSULE (FP) PO SCH (21:26)
[2018-10-19] MEDS: NORTRIPTYLINE HCL 25 MG CAPSULE PO SCH (21:27)
[2018-10-20 06:39] LABS: HEMATOCRIT 34.8 % (32.4-45.2); HEMOGLOBIN 12.3 GM/dL (10.7-15.3); MCH 29.2 pg (25.7-33.7); MCHC 35.3 g/dl (32.0-36.0); MEAN CELL VOLUME 82.7 fl (80-96); MEAN PLT VOLUME 7.8 fl (7.5-11.1); PLATELET COUNT 286 K/MM3 (134-434); RDW 13.6 % (11.6-15.6); WHITE BLOOD COUNT 6.2 K/mm3 (4.0-10.0)
[2018-10-20 06:55] LABS: INR 2.32 (0.83-1.09); PROTHROMBIN TIME (PATIENT) 27.6 SEC (9.7-13.0)
[2018-10-20 07:36] LABS: ALBUMIN 3.2 g/dl (3.4-5.0); ALK PHOS 82 U/L (45-117); ANION GAP 5 MMOL/L (8-16); BILIRUBIN,TOTAL 0.6 mg/dL (0.2-1); BLOOD UREA NITROGEN 17 mg/dL (7-18); CALCIUM 8.5 mg/dL (8.5-10.1); CHLORIDE 104 mmol/L (98-107); CO2 31 mmol/L (21-32); CREATININE 0.8 mg/dL (0.55-1.3); GLUCOSE,RANDOM 100 mg/dL (74-106); POTASSIUM 4.4 mmol/L (3.5-5.1); SGOT/AST 19 U/L (15-37); SGPT/ALT 39 U/L (13-61); SODIUM 140 mmol/L (136-145)
--- NOTE | 2018-10-20 08:30 | PN ---
Progress Note, Physician - Current Medication List Current Medications: Active Medications Docusate Sodium (Colace -) 300 mg PO [facility] Last Admin: 10/19/18 21:26 Dose: 300 mg Morphine Sulfate (Morphine Sulfate) 4 mg IVPUSH Q6H PRN PRN Reason: PAIN LEVEL 7 - 10 Last Admin: 10/19/18 13:44 Dose: 4 mg Nortriptyline HCl (Pamelor -) 25 mg PO [facility] Last Admin: 10/19/18 21:27 Dose: 25 mg Ondansetron HCl (Zofran Injection) 4 mg IVPUSH Q6H PRN PRN Reason: NAUSEA AND/OR VOMITING Pantoprazole Sodium (Protonix -) 40 mg PO DAILY [facility] Last Admin: 10/19/18 09:56 Dose: 40 mg Senna (Senna -) 1 tab PO BID [facility] Last Admin: 10/19/18 21:26 Dose: 1 tab Warfarin Sodium (Coumadin -) 4 mg PO SUTUWETHSA@1800 [facility] Last Admin: 10/18/18 23:15 Dose: 4 mg Warfarin Sodium (Coumadin -) 3 mg PO MOFR@1800 [facility] Last Admin: 10/19/18 17:02 Dose: 3 mg - Objective Vital Signs: Vital Signs Temperature 97.6 F 10/20/18 06:00 Pulse Rate 74 10/20/18 06:00 Respiratory Rate 18 10/20/18 06:00 Blood Pressure 109/65 10/20/18 06:00 O2 Sat by Pulse Oximetry (%) 98 10/19/18 21:00 Cardiovascular: Yes: Murmur, S1, S2 Respiratory: Yes: Regular, CTA Bilaterally Gastrointestinal: Yes: Normal Bowel Sounds, Soft Labs: CBC, BMP 10/20/18 05:30 10/20/18 05:30 INR, PTT INR 2.32 (0.83-1.09) H 10/20/18 05:30 Problem List - Problems (1) Chest pain Assessment/Plan: Echo and Stress Test -Cardio consult noted -CE negative Code(s): R07.9 - CHEST PAIN, UNSPECIFIED Qualifiers: Chest pain type: unspecified Qualified Code(s): R07.9 - Chest pain, unspecified (2) History of aortic valve repair Assessment/Plan: -echo - Laboratory Tests 10/20/18 05:30 INR 2.32 H Coumadin increased to 4 qd Code(s): Z98.890 - OTHER SPECIFIED POSTPROCEDURAL STATES; Z86.79 - PERSONAL HISTORY OF OTHER DISEASES OF THE CIRCULATORY SYSTEM (3) Lesion of spleen Assessment/Plan: -probably hemangioma -per gi Code(s): D73.9 - DISEASE OF SPLEEN, UNSPECIFIED
[2018-10-20] MEDS: SENNOSIDES 8.6MG TABLET (FP) PO SCH ×2 (09:46→21:26)
[2018-10-20] MEDS: PANTOPRAZOLE 40 MG TABLET (FP) PO SCH (09:46)
--- NOTE | 2018-10-20 10:25 | PN ---
Progress Note (short form) - Note Progress Note: s: intermittent chest pressure, difficult to describe. no dyspnea, palps, dizziness Current Medications Docusate Sodium (Colace -) 300 mg PO HS [facility] Last Admin: 10/19/18 21:26 Dose: 300 mg Morphine Sulfate (Morphine Sulfate) 4 mg IVPUSH Q6H PRN PRN Reason: PAIN LEVEL 7 - 10 Last Admin: 10/19/18 13:44 Dose: 4 mg Nortriptyline HCl (Pamelor -) 25 mg PO HS [facility] Last Admin: 10/19/18 21:27 Dose: 25 mg Ondansetron HCl (Zofran Injection) 4 mg IVPUSH Q6H PRN PRN Reason: NAUSEA AND/OR VOMITING Pantoprazole Sodium (Protonix -) 40 mg PO DAILY [facility] Last Admin: 10/20/18 09:46 Dose: 40 mg Senna (Senna -) 1 tab PO BID [facility] Last Admin: 10/20/18 09:46 Dose: 1 tab Warfarin Sodium (Coumadin -) 4 mg PO 1800 [facility] Vital Signs Period Temp Pulse Resp BP Sys/Rose Pulse Ox Last 24 Hr 97.5 F-98 F 74-97 18-20 109-140/65-90 98 Constitutional: Yes: No Distress, Calm Eyes: Yes: WNL HENT: Yes: WNL Neck: Yes: WNL Cardiovascular: Yes: Regular Rate and Rhythm, Murmur Respiratory: Yes: CTA Bilaterally Gastrointestinal: Yes: Normal Bowel Sounds Musculoskeletal: Yes: WNL Extremities: Yes: WNL Edema: No Assessment/Plan echo 05/2018: LV nl function, E/A reversal c/w impaired relaxation, mild TR, mechanical AVR well seated, DI 0.21, no AR nuclear pharm stress 05/2018: small znoe of apical fixed defect c/w attenuation, EF 62%, no ischemia CTA chest 10/2018 no dissection, no PE tele: sinus tachycardia 58 yo female known s/p mechanical AVR with ascending aortic repair in 1999 on chronic AC, now admitted with atypical chest pain, palpitations. 1) Chest pain -pressure like chest pain lasting hours -EKG unchanged, and trop neg x 3 - unlikely ACS and history not typical for CAD - CTA neg - does endorse dyspnea on exertion at home, no exertional chest pain - nuc stress no ischemia 05/2018 - refusing repeat stress test, echo pending today - given recent normal stress, continued symptoms of chest pressure and exertional dyspnea at home will evaluate with cardiac cath, transfer planned [place] [facility]. [place], patient is agreeable 2) Mechanical AVR -Continue coumadin, goal INR 2.5-3.5, dose per INR - no significant stenosis or regurgitation on echo 05/2018, nl valve function
--- NOTE | 2018-10-20 13:19 | CON.GI ---
Consult Consult Specialty:: GI Referred by:: Kristie Allen NP Reason for Consultation:: Splenic lesion - History of Present Illness Chief Complaint: 1.9cm lesion on spleen History of Present Illness: Patient is a 58 year old female who was referred for 1.9cm lesion on spleen and borderline hepatomegaly with diffuse fatty infiltration noted on Abdominal CT scan. Patient states experiencing dysphagia with both solids and liquids, with intermittent episodes of early satiety and reflux. States experiencing RUQ pain that changes between sharp and dull. Patient notices change in bowel movements with more frequent episodes of constipation with painful defection. 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 No: AFIB, Aortic Insufficiency, Aortic Stenosis, CAD, CHF, Deep Vein Thrombosis, Hyperlipdemia, [place], Mitral Insufficiency, Mitral Stenosis, Murmur, Pulmonary Hypertension Gastrointestinal: Yes: Other (POSSIBLE GB DISEASE???) Hepatobiliary: Yes: Other (as above) ...LMP: 11/14/03 ...: No - Past Surgical History Past Surgical History: Yes: Valve Replacement. No: None, AAA Repair, AICD, Amputation, Appendectomy, Arthrosocopy, AV Fistula/Graft, Bariatric Surgery, Breast Biopsy, Bypass, CABG, Carotid Endarterectomy, Cataract Removal, Cholecystectomy, Colectomy, Colonoscopy, Colostomy, Craniotomy, , Cystectomy, Hernia Repair, Hysterectomy, Ileal Conduit, Ileosotomy, Joint Replacement, Kidney Transplant, Laminectomy, Liver Transplant, Mastectomy, Nephrectomy, Oopherectomy, Orchiectomy, Permanent Pacemaker, Prostatectomy, Splenectomy, Stent, Thoracotomy, TURP, Tonsillectomy, Tubal Ligation, Upper Endoscopy, Vasectomy, Vein Stripping/Ligation - Alcohol/Substance Use Hx Alcohol Use: No - Smoking History Smoking history: Never smoked Have you smoked in the past 12 months: No Aproximately how many cigarettes per day: 0 - Social History ADL: Independent History of Recent Travel: No Home Medications - Allergies Allergies/Adverse Reactions: Allergies Allergy/AdvReac Type Severity Reaction Status Date / Time No Known Allergies Allergy Verified 10/18/18 15:33 - Home Medications Home Medications: Ambulatory Orders Warfarin Na [Coumadin -] 4 mg PO DAILY 05/28/17 Nortriptyline HCl [Pamelor -] 25 mg PO DAILY 10/17/17 Pantoprazole Sodium [Protonix -] 40 mg PO DAILY 10/17/17 Family Disease History - Family Disease History Family Disease History: Other: Grandparent (Maternal grandmother with "intestinal" cancer, diagnosed in her 60s), Mother (ascending aortic aneurysm) Review of Systems - Review of Systems Constitutional: reports: No Symptoms Eyes: reports: No Symptoms HENT: reports: No Symptoms Neck: reports: No Symptoms Cardiovascular: reports: No Symptoms Respiratory: reports: No Symptoms Gastrointestinal: reports: Abdominal Pain (RUQ), Constipation Genitourinary: reports: No Symptoms Breasts: reports: No Symptoms Reported Musculoskeletal: reports: No Symptoms Integumentary: reports: No Symptoms Neurological: reports: No Symptoms Endocrine: reports: No Symptoms Hematology/Lymphatic: reports: No Symptoms Psychiatric: reports: No Symptoms Physical Exam-GI Vital Signs: Vital Signs Temperature 98 F 10/20/18 09:00 Pulse Rate 80 10/20/18 09:00 Respiratory Rate 18 10/20/18 09:00 Blood Pressure 140/84 10/20/18 09:00 O2 Sat by Pulse Oximetry (%) 98 10/19/18 21:00 Constitutional: Yes: Well Nourished, No Distress, Calm Eyes: Yes: Conjunctiva Clear HENT: Yes: Normocephalic Cardiovascular: Yes: Regular Rate and Rhythm Respiratory: Yes: Regular, CTA Bilaterally Gastrointestinal Inspection: No: WNL, Ascites, Distention, Hernia, Scars, Other ...Auscultate: Yes: Hypoactive Bowel Sounds. No: Normoactive Bowel Sounds, Hyperactive Bowel Sounds, No Bowel Sounds, Other ...Palpate: Yes: Soft, Tenderness (RUQ). No: Firm/Rigid, Guarding, Hepatomegaly , Mass, Pulsatile Mass, Splenomegaly, Tenderness, Epigastium, Tenderness, Rebound, Other ...Percussion: Yes: Tympanitic Neurological: Yes: Alert, Oriented Labs: CBC, BMP 10/20/18 05:30 10/20/18 05:30 INR, PTT INR 2.32 (0.83-1.09) H 10/20/18 05:30 Active Medications Generic Name Dose Route Start Last Admin Trade Name Freq PRN Reason Stop Dose Admin Docusate Sodium 300 mg 10/19/18 22:00 10/19/18 21:26 Colace - PO 300 mg HS [facility] Administration Morphine Sulfate 4 mg 10/18/18 20:38 10/19/18 13:44 Morphine Sulfate IVPUSH 4 mg Q6H PRN Administration PAIN LEVEL 7 - 10 Nortriptyline HCl 25 mg 10/18/18 22:30 10/19/18 21:27 Pamelor - PO 25 mg HS [facility] Administration Ondansetron HCl 4 mg 10/18/18 20:38 Zofran Injection IVPUSH Q6H PRN NAUSEA AND/OR VOMITING Pantoprazole Sodium 40 mg 10/18/18 22:30 10/20/18 09:46 Protonix - PO 40 mg DAILY [facility] Administration Senna 1 tab 10/19/18 22:00 10/20/18 09:46 Senna - PO 1 tab BID [facility] Administration Warfarin Sodium 4 mg 10/20/18 18:00 Coumadin - PO 1800 [facility] Laboratory Results - last 24 hr 10/20/18 10/20/18 10/20/18 05:30 05:30 05:30 WBC 6.2 RBC 4.20 Hgb 12.3 Hct 34.8 MCV 82.7 MCH 29.2 MCHC 35.3 RDW 13.6 Plt Count 286 MPV 7.8 PT with INR INR Sodium 140 Potassium 4.4 Chloride 104 Carbon Dioxide 31 Anion Gap 5 L BUN 17 Creatinine 0.8 Creat Clearance w eGFR > 60 Random Glucose 100 Calcium 8.5 Total Bilirubin 0.6 AST 19 ALT 39 Alkaline Phosphatase 82 Total Protein 6.0 L Albumin 3.2 L Blood Type O NEGATIVE 10/20/18 05:30 WBC RBC Hgb Hct MCV MCH MCHC RDW Plt Count MPV PT with INR 27.60 H INR 2.32 H Sodium Potassium Chloride Carbon Dioxide Anion Gap BUN Creatinine Creat Clearance w eGFR Random Glucose Calcium Total Bilirubin AST ALT Alkaline Phosphatase Total Protein Albumin Blood Type Imaging - Results Cat Scan: Report Reviewed Problem List - Problems (1) Lesion of spleen Assessment/Plan: >R repeat US in 6 months, if no growth observe yearly for 3 years Code(s): D73.9 - DISEASE OF SPLEEN, UNSPECIFIED (2) Fatty liver Assessment/Plan: >R monitor LFTs >further GI work-up as outpatient for colonoscopy and endoscopy Code(s): K76.0 - FATTY (CHANGE OF) LIVER, NOT ELSEWHERE CLASSIFIED
--- NOTE | 2018-10-20 14:20 | ECHO ---
Name: CHRISTIE MONTANEZ Exam:Adult Echocardiogram Study Date: 10/20/2018 10:11 AM Age: 58 yrs Reason For Study: Chest pain Height: 64 in Weight: 194 lb BSA: 1.9 m2 MMode/2D Measurements & Calculations IVSd: 0.94 cm Ao root diam: 2.6 cm LVIDd: 4.2 cm LA dimension: 3.1 cm LVIDs: 2.8 cm LVPWd: 0.79 cm EDV(Teich): 80.5 ml ESV(Teich): 29.6 ml Doppler Measurements & Calculations MV E max dhiraj: 52.8 cm/sec Ao V2 max: 178.6 cm/sec MV A max dhiraj: 67.6 cm/sec Ao max P.8 mmHg MV E/A: 0.78 MV dec time: 0.14 sec LV V1 max P.6 mmHg TR max dhiarj: 190.6 cm/sec LV V1 max: 62.5 cm/sec TR max P.5 mmHg PI end-d dhiraj: 93.1 cm/sec Med Peak E' Dhiraj: 6.3 cm/sec Med E/e': 8.3 Lat Peak E' Dhiraj: 7.7 cm/sec Lat E/e': 6.9 Procedure A complete two-dimensional transthoracic echocardiogram was performed (2D, M-mode, Doppler and color flow Doppler). Left Ventricle The left ventricular size, thickness and function are normal. Ejection Fraction = 65%. The transmitra l spectral Doppler flow pattern is suggestive of impaired LV relaxation. The left ventricular wall harrison on is normal. Right Ventricle The right ventricle is normal in size and function. Atria Normal left and right atrial size and function. Mitral Valve The mitral valve is grossly normal. Tricuspid Valve The tricuspid valve is normal. There is trace tricuspid regurgitation. Right ventricular systolic pre ssure is 20 mmhg. Aortic Valve There is a mechanical aortic valve. The prosthetic aortic valve is well-seated. The gradient is jamar l for this prosthetic aortic valve. Trace aortic regurgitation. Pulmonic Valve The pulmonic valve is not well seen, but is grossly normal. Great Vessels The aortic root is normal size. Pericardium/Pleura There is no pericardial effusion. There is no pleural effusion. Interpretation Summary The left ventricular size, thickness and function are normal Ejection Fraction = 65%. The right ventricle is normal in size and function. There is trace tricuspid regurgitation. Right ventricular systolic pressure is 20 mmhg. There is a mechanical aortic valve. The prosthetic aortic valve is well-seated. The gradient is normal for this prosthetic aortic valve. Trace aortic regurgitation. MD Valente Ball 10/20/2018 02:19 PM
[2018-10-20] MEDS ORDERED: WARFARIN NA 2 MG TABLET (UD) PO SCH (18:00)
[2018-10-20] MEDS: DOCUSATE SODIUM 100 MG CAPSULE (FP) PO SCH (21:26)
[2018-10-20] MEDS: NORTRIPTYLINE HCL 25 MG CAPSULE PO SCH (22:03)
[2018-10-21 08:16] LABS: INR 2.65 (0.83-1.09); PROTHROMBIN TIME (PATIENT) 31.6 SEC (9.7-13.0)
[2018-10-21] MEDS: PANTOPRAZOLE 40 MG TABLET (FP) PO SCH (09:41)
[2018-10-21] MEDS: SENNOSIDES 8.6MG TABLET (FP) PO SCH (09:41)
--- NOTE | 2018-10-21 09:42 | DS ---
Physical Examination Vital Signs: Vital Signs Temperature 97.7 F 10/21/18 06:00 Pulse Rate 86 10/21/18 06:00 Respiratory Rate 18 10/21/18 06:00 Blood Pressure 111/62 10/21/18 06:00 O2 Sat by Pulse Oximetry (%) 98 10/20/18 21:00 Cardiovascular: Yes: Murmur, S1, S2 Respiratory: Yes: Regular, CTA Bilaterally Gastrointestinal: Yes: Normal Bowel Sounds, Soft Labs: CBC, BMP 10/20/18 05:30 10/20/18 05:30 Discharge Summary Reason For Visit: CHEST PAIN,AORTIC ANEURYSM Current Active Problems Aortic aneurysm (Acute) Chest pain (Acute) Constipation (Acute) GERD (gastroesophageal reflux disease) (Acute) HLD (hyperlipidemia) (Acute) History of aortic valve repair (Acute) Lesion of spleen (Acute) Hospital Course: - Problems (1) Chest pain Assessment/Plan: Echo noted Stress Test refused--agrees for cath--transfer to [place] -Cardio consult noted -CE negative Code(s): R07.9 - CHEST PAIN, UNSPECIFIED Qualifiers: Chest pain type: unspecified Qualified Code(s): R07.9 - Chest pain, unspecified (2) History of aortic valve repair Assessment/Plan: -echo - Laboratory Tests 10/20/18 05:30 INR 2.32 H Coumadin increased to 4 qd Code(s): Z98.890 - OTHER SPECIFIED POSTPROCEDURAL STATES; Z86.79 - PERSONAL HISTORY OF OTHER DISEASES OF THE CIRCULATORY SYSTEM (3) Lesion of spleen Assessment/Plan: -probably hemangioma -per gi Code(s): D73.9 - DISEASE OF SPLEEN, UNSPECIFIED - Instructions Referrals: Jaqueline Powell [Primary Care Provider] - - Home Medications Comprehensive Discharge Medication List: Ambulatory Orders Warfarin Na [Coumadin -] 4 mg PO DAILY 05/28/17 Nortriptyline HCl [Pamelor -] 25 mg PO DAILY 10/17/17 Pantoprazole Sodium [Protonix -] 40 mg PO DAILY 10/17/17
--- NOTE | 2018-10-21 12:04 | PN ---
Progress Note (short form) - Note Progress Note: s: continues to have intermittent chest pressure associated with diaphoresis. no dyspnea, palps, dizziness Current Medications Docusate Sodium (Colace -) 300 mg PO HS [facility] Last Admin: 10/20/18 21:26 Dose: 300 mg Morphine Sulfate (Morphine Sulfate) 4 mg IVPUSH Q6H PRN PRN Reason: PAIN LEVEL 7 - 10 Last Admin: 10/19/18 13:44 Dose: 4 mg Nortriptyline HCl (Pamelor -) 25 mg PO HS [facility] Last Admin: 10/20/18 22:03 Dose: 25 mg Ondansetron HCl (Zofran Injection) 4 mg IVPUSH Q6H PRN PRN Reason: NAUSEA AND/OR VOMITING Pantoprazole Sodium (Protonix -) 40 mg PO DAILY [facility] Last Admin: 10/21/18 09:41 Dose: 40 mg Senna (Senna -) 1 tab PO BID [facility] Last Admin: 10/21/18 09:41 Dose: 1 tab Warfarin Sodium (Coumadin -) 4 mg PO 1800 [facility] Last Admin: 10/20/18 17:50 Dose: 4 mg Vital Signs Period Temp Pulse Resp BP Sys/Rose Pulse Ox Last 24 Hr 97.4 F-98.3 F 82-95 16-20 111-164/62-90 98-99 Constitutional: Yes: No Distress, Calm Eyes: Yes: WNL HENT: Yes: WNL Neck: Yes: WNL Cardiovascular: Yes: Regular Rate and Rhythm, Murmur Respiratory: Yes: CTA Bilaterally Gastrointestinal: Yes: Normal Bowel Sounds Musculoskeletal: Yes: WNL Extremities: Yes: WNL Edema: No Assessment/Plan echo 05/2018: LV nl function, E/A reversal c/w impaired relaxation, mild TR, mechanical AVR well seated, DI 0.21, no AR nuclear pharm stress 05/2018: small znoe of apical fixed defect c/w attenuation, EF 62%, no ischemia CTA chest 10/2018 no dissection, no PE echo 10/2018 nl LV/RV function, mechanical AVR with nl gradient, trace AR tele: sinus tachycardia 58 yo female known s/p mechanical AVR with ascending aortic repair in 1999 on chronic AC, now admitted with atypical chest pain, palpitations. 1) Chest pain -pressure like chest pain lasting hours -EKG unchanged, and trop neg x 3 - unlikely ACS and history not typical for CAD - CTA neg - does endorse dyspnea on exertion at home, no exertional chest pain - nuc stress no ischemia 05/2018 - refusing repeat stress test - echo stable - given recent normal stress, continued symptoms of chest pressure and exertional dyspnea at home will evaluate with cardiac cath, transfer planned to [facility] with Dr. Lopez, patient is agreeable 2) Mechanical AVR -Continue coumadin, goal INR 2.5-3.5, dose per INR - no significant stenosis or regurgitation on echo 05/2018, nl valve function
[2018-10-21] MEDS: morphine SULFATE 4 MG/ML VIAL IVPUSH PRN (13:22)
[2018-10-21 14:21] VITALS: BP 159/84; PULSE 84; TEMP 98.2
== END 2018-10-21 17:35 | disposition short-term general hospital (02) ==
LOC: JER 15:24 → JERBED 18:55 → J4W 22:05
PROVIDERS: ADMIT Family Medicine; ATTEND Family Medicine
PROC: 3E033NZ Introduction of Analgesics, Hypnotics, Sedatives into Peripheral Vein, Percutaneous Approach (ICD-10-PCS; principal; 2018-10-18)
PROC: 3E033GC Introduction of Other Therapeutic Substance into Peripheral Vein, Percutaneous Approach (ICD-10-PCS; 2018-10-18)
DX: R07.9 Chest pain, unspecified (principal); I71.9 Aortic aneurysm of unspecified site, without rupture; E78.5 Hyperlipidemia, unspecified; K21.9 Gastro-esophageal reflux disease without esophagitis; Z95.2 Presence of prosthetic heart valve; Z79.01 Long term (current) use of anticoagulants; I10 Essential (primary) hypertension; K76.0 Fatty (change of) liver, not elsewhere classified; F41.9 Anxiety disorder, unspecified; K59.00 Constipation, unspecified; D73.89 Other diseases of spleen; R00.0 Tachycardia, unspecified
CPT/HCPCS: 36415; 71045-TC-FY; 71275-TC; 74175-TC; 80048; 80053; 82550; 83735; 84100; 84484; 85025; 85027; 85610; 85730; 86850; 86900; 86901; 93005; 93010; 93306-TC; 99284-25; G0378

== ENCOUNTER 2019-10-13 12:14 | Day surgery (SDC) | payer BC ==
[2019-08-17 14:40] VITALS: BMI 34.3
[~2019-10-13 12:14] MED LIST: LIDOCAINE HCL/PF 2% SDV 5ML VIAL ONE; PROPOFOL 20 ML ONE
[2019-10-13 12:33] VITALS: TEMP 98.1
[2019-10-13] MEDS ORDERED: MIDAZOLAM HCL 2 MG/2 ML SINGLE DOSE VIAL ONE (14:57)
[2019-10-13 15:19] VITALS: PULSE 72
[2019-10-13 15:53] VITALS: BP 122/74
--- NOTE | 2019-10-15 16:06 | PATH ---
Surgical Pathology Report Patient Name: CHRISTIE MONTANEZ [facility]. Rec. #: [id number] /Age/Gender: 1960 (Age: 59) / F Account: [id number] Location: [facility] Taken: 10/13/2019 Received: 10/13/2019 Reported: 10/15/2019 Physicians: Liliane Crocker M.D. Specimen(s) Received A: SECOND PORTION DUODENUM B: ANTRUM C: GASTRUM BODY POLYP D: GE JUNCTION Clinical History Abdominal pain, dyspepsia Postoperative diagnosis: Gastric body and fundus polyps, gastritis Final Diagnosis A. DUODENUM, SECOND PORTION, BIOPSY: DUODENAL MUCOSA WITHOUT SIGNIFICANT PATHOLOGIC FINDINGS. B. GASTRIC ANTRUM, BIOPSY: GASTRIC ANTRAL MUCOSA WITH MILD CHRONIC GASTRITIS. IMMUNOHISTOCHEMICAL STAIN FOR H. PYLORI IS NEGATIVE. C. GASTRIC BODY POLYP, BIOPSY: FUNDIC GLAND POLYP. IMMUNOHISTOCHEMICAL STAIN FOR H. PYLORI IS NEGATIVE. D. GE JUNCTION, BIOPSY: SQUAMOCOLUMNAR MUCOSA WITH MODERATE CHRONIC INFLAMMATION AND CHANGES OF MILD TO MODERATE REFLUX ESOPHAGITIS. NO INTESTINAL METAPLASIA OR DYSPLASIA IDENTIFIED. Positive and negative controls (internal if applicable) show appropriate results. Electronically Signed Liliane Mahajan M.D. Gross Description A. Received in formalin, labeled "biopsy second portion of duodenum" is a lopez, irregular portion of soft tissue measuring 0.3 cm. in greatest dimension. The specimen is submitted in toto in one cassette. B. Received in formalin, labeled "biopsy gastric antrum" is a lopez, irregular portion of soft tissue measuring 0.3 cm. in greatest dimension. The specimen is submitted in toto in one cassette. C. Received in formalin, labeled "biopsy gastric body polyp" is a lopez, irregular portion of soft tissue measuring 0.3 cm. in greatest dimension. The specimen is submitted in toto in one cassette. D. Received in formalin, labeled "biopsy GE junction" is a lopez, irregular portion of soft tissue measuring 0.3 cm. in greatest dimension. The specimen is submitted in toto in one cassette. 10/14/2019 saudi10/14/2019
== END 2019-10-13 16:05 | disposition home or self-care (01) ==
LOC: FASU-ENDO 12:14
PROVIDERS: ATTEND Internal Medicine Gastroenterology
PROC: 0DB78ZX Excision of Stomach, Pylorus, Via Natural or Artificial Opening Endoscopic, Diagnostic (ICD-10-PCS; 2019-10-13)
PROC: 0DB68ZX Excision of Stomach, Via Natural or Artificial Opening Endoscopic, Diagnostic (ICD-10-PCS; 2019-10-13)
PROC: 0DB48ZX Excision of Esophagogastric Junction, Via Natural or Artificial Opening Endoscopic, Diagnostic (ICD-10-PCS; 2019-10-13)
PROC: 0DB98ZX Excision of Duodenum, Via Natural or Artificial Opening Endoscopic, Diagnostic (ICD-10-PCS; principal; 2019-10-13 15:03)
DX: K31.7 Polyp of stomach and duodenum (principal); K29.50 Unspecified chronic gastritis without bleeding; K21.0 Gastro-esophageal reflux disease with esophagitis
CPT/HCPCS: 88305-TC; 88342-TC

== ENCOUNTER 2020-03-09 14:10 | Inpatient (IN) | payer BC ==
[2020-03-09 14:24] VITALS: BMI 34.3
[2020-03-09 16:03] LABS: BASO % 0.4 % (0-2.0); EOS % 1.7 % (0-4.5); HEMATOCRIT 36.9 % (32.4-45.2); HEMOGLOBIN 12.3 GM/dL (10.7-15.3); LYMPH % 26.6 % (8-40); MCH 27.8 pg (25.7-33.7); MCHC 33.4 g/dl (32.0-36.0); MEAN CELL VOLUME 83.2 fl (80-96); MEAN PLT VOLUME 8.1 fl (7.5-11.1); MONO % 5.3 % (3.8-10.2); PLATELET COUNT 336 K/MM3 (134-434); RBC 4.43 M/mm3 (3.60-5.2); RDW 14.1 % (11.6-15.6)
[2020-03-09 16:13] LABS: INR 3.47 (0.83-1.09); PROTHROMBIN TIME (PATIENT) 41.5 SEC (9.7-13.0)
[2020-03-09] MEDS ORDERED: ACETAMINOPHEN 1000 MG/100 ML VIAL (NON FORMULARY) IVPB ONE (16:13)
[2020-03-09 16:15] LABS: ACTIVATED PTT 49.7 SECONDS (25.2-36.5)
[2020-03-09] MEDS ORDERED: ACETAMINOPHEN INJECTION 100 ML IVPB ONE (16:20)
[2020-03-09 16:26] LABS: ALBUMIN 3.6 g/dl (3.4-5.0); ALK PHOS 95 U/L (45-117); ANION GAP 7 MMOL/L (8-16); BILIRUBIN,TOTAL 0.8 mg/dL (0.2-1); BLOOD UREA NITROGEN 18.1 mg/dL (7-18); CALCIUM 8.7 mg/dL (8.5-10.1); CHLORIDE 109 mmol/L (98-107); CO2 23 mmol/L (21-32); CREATININE 1.2 mg/dL (0.55-1.3); GLUCOSE,RANDOM 128 mg/dL (74-106); MAGNESIUM 2.3 mg/dL (1.8-2.4); POTASSIUM 5.7 mmol/L (3.5-5.1); SGOT/AST 62 U/L (15-37); SODIUM 139 mmol/L (136-145); TOT PROT 6.9 g/dl (6.4-8.2)
[2020-03-09 17:11] LABS: SGPT/ALT 46 U/L (13-61)
[2020-03-09] MEDS ORDERED: ELETRIPTAN HYDROBROMIDE 40 MG TABLET PO PRN (18:01)
[2020-03-09] MEDS ORDERED: ACETAMINOPHEN 500 MG TABLET (FP) PO PRN ×2 (18:03→19:02)
[2020-03-09] MEDS ORDERED: MELATONIN 5 MG TABLETS PO PRN (22:51)
[2020-03-09] MEDS ORDERED: ATORVASTATIN CA 20 MG TABLET (FP) PO ONE (23:05)
[2020-03-09] MEDS ORDERED: ATORVASTATIN CA 20 MG TABLET (FP) ONE (23:39)
[2020-03-10] MEDS ORDERED: MELATONIN 5 MG TABLETS ONE (03:49)
[2020-03-10] MEDS ORDERED: ACETAMINOPHEN 1000 MG/100 ML VIAL (NON FORMULARY) IVPB ONE (03:50)
[2020-03-10] MEDS ORDERED: ACETAMINOPHEN INJECTION 100 ML IVPB ONE (04:38)
[2020-03-10 08:33] LABS: INR 3.46 (0.83-1.09); PROTHROMBIN TIME (PATIENT) 41.4 SEC (9.7-13.0)
[2020-03-10 09:05] LABS: ALBUMIN 3.4 g/dl (3.4-5.0); ANION GAP 6 MMOL/L (8-16); BLOOD UREA NITROGEN 15.2 mg/dL (7-18); CALCIUM 8.6 mg/dL (8.5-10.1); CHLORIDE 106 mmol/L (98-107); CO2 28 mmol/L (21-32); GLUCOSE,RANDOM 88 mg/dL (74-106); MAGNESIUM 2.3 mg/dL (1.8-2.4); POTASSIUM 4.1 mmol/L (3.5-5.1); SGOT/AST 21 U/L (15-37); SGPT/ALT 41 U/L (13-61); SODIUM 139 mmol/L (136-145); TOT PROT 6.1 g/dl (6.4-8.2)
[2020-03-10 09:08] LABS: ALK PHOS 78 U/L (45-117); CREATININE 0.9 mg/dL (0.55-1.3)
[2020-03-10] MEDS ORDERED: HYDROCHLOROTHIAZIDE 25 MG TABLET (FP) PO SCH (10:00)
[2020-03-10] MEDS ORDERED: PANTOPRAZOLE 40 MG TABLET PO SCH (10:00)
[2020-03-10] MEDS ORDERED: LORATADINE 10 MG TABLET PO SCH (10:00)
[2020-03-10] MEDS ORDERED: PANTOPRAZOLE 40 MG TABLET ONE (10:26)
[2020-03-10] MEDS ORDERED: HYDROCHLOROTHIAZIDE 25 MG TABLET (FP) ONE (10:27)
[2020-03-10] MEDS ORDERED: LORATADINE 10 MG TABLET ONE (10:27)
[2020-03-10] MEDS ORDERED: ACETAMINOPHEN 325 MG TABLET (FP) ONE (13:06)
[2020-03-10 15:15] VITALS: BP 104/61; PULSE 61; TEMP 98.3
== END 2020-03-10 15:50 | disposition home or self-care (01) | DRG 313 ==
LOC: JER 14:10 → JERBED 16:10
PROVIDERS: ADMIT Family Medicine; ATTEND Family Medicine
DX: R07.89 Other chest pain (principal); I25.10 Atherosclerotic heart disease of native coronary artery without angina pectoris; Z95.2 Presence of prosthetic heart valve; Z79.01 Long term (current) use of anticoagulants; F41.9 Anxiety disorder, unspecified; I10 Essential (primary) hypertension; E78.5 Hyperlipidemia, unspecified; E66.9 Obesity, unspecified; Z68.34 Body mass index [BMI] 34.0-34.9, adult
CPT/HCPCS: 36415; 71046-TC-FY; 80053; 80061; 82550; 82553; 83721; 83735; 84439; 84443; 84480; 84484; 85025; 85610; 85730; 93005; 93010; 93306-TC; 99285-25; J0131; U0003

== ENCOUNTER 2020-08-15 09:34 | Emergency (ER) | payer BC ==
[2020-08-15 10:08] VITALS: TEMP 98.7; BMI 35.2
[2020-08-15 11:02] LABS: EPITHELIAL CELLS RARE /hpf
[2020-08-15 11:09] LABS: BASO % 0.5 % (0-2.0); EOS % 2.2 % (0-4.5); HEMATOCRIT 40.2 % (32.4-45.2); HEMOGLOBIN 13.1 GM/dl (10.7-15.3); LYMPH % 20.4 % (8-40); MCHC 32.6 g/dl (32.0-36.0); MEAN CELL VOLUME 85.7 fl (80-96); MEAN PLT VOLUME 8.1 fl (7.5-11.1); MONO % 4.8 % (3.8-10.2); NEUT % 72.1 % (42.8-82.8); PLATELET COUNT 383 K/MM3 (134-434); RBC 4.69 M/mm3 (3.60-5.2); RDW 13.3 % (11.6-15.6); WHITE BLOOD COUNT 9.6 K/mm3 (4.0-10.8)
[2020-08-15 11:13] LABS: ACTIVATED PTT 42.3 SECONDS (25.2-36.5)
[2020-08-15] MEDS ORDERED: SODIUM CHLORIDE 0.9% 1000 ML INFUS.BAG IV ONE (11:13)
[2020-08-15] MEDS ORDERED: ACETAMINOPHEN 1000 MG/100 ML VIAL (NON FORMULARY) IVPB ONE (11:13)
[2020-08-15 11:17] LABS: BILIRUBIN,TOTAL 1.1 mg/dl (0.2-1); CALCIUM 8.7 mg/dl (8.5-10); CREATININE 0.9 mg/dl (0.55-1.3); INR 2.94 (0.82-1.09); POTASSIUM 3.8 mmol/L (3.5-5.1); PROTHROMBIN TIME (PATIENT) 30.7 SEC (10.2-13.0); TOT PROT 6.9 g/dl (6.4-8.2)
[2020-08-15] MEDS ORDERED: ACETAMINOPHEN INJECTION 100 ML IVPB ONE (11:22)
[2020-08-15 14:29] VITALS: BP 117/58; PULSE 77
== END 2020-08-15 15:00 | disposition home or self-care (01) ==
LOC: FER 09:34
PROC: 3E033NZ Introduction of Analgesics, Hypnotics, Sedatives into Peripheral Vein, Percutaneous Approach (ICD-10-PCS; principal; 2020-08-15)
DX: R07.89 Other chest pain (principal)
CPT/HCPCS: 36415; 71045-TC-FY; 71275-TC; 80053; 81003; 81015; 84484; 85025; 85610; 85730; 87086; 93005; 99284-25; J0131

== ENCOUNTER 2020-11-30 13:26 | Observation (INO) | payer BC ==
[2020-11-30 13:36] VITALS: BMI 34.8
[2020-11-30 15:36] LABS: BASO % 0.7 % (0-2.0); EOS % 1.2 % (0-4.5); HEMATOCRIT 40.4 % (32.4-45.2); HEMOGLOBIN 13.5 GM/dL (10.7-15.3); LYMPH % 24.4 % (8-40); MCH 28.4 pg (25.7-33.7); MCHC 33.6 g/dl (32.0-36.0); MEAN CELL VOLUME 84.7 fl (80-96); MEAN PLT VOLUME 8.7 fl (7.5-11.1); NEUT % 68.7 % (42.8-82.8); PLATELET COUNT 380 K/MM3 (134-434); RBC 4.77 M/mm3 (3.60-5.2); RDW 13.7 % (11.6-15.6); WHITE BLOOD COUNT 9.3 K/mm3 (4.0-10.0)
[2020-11-30 15:42] LABS: INR 2.92 (0.83-1.09); PROTHROMBIN TIME (PATIENT) 34.3 SEC (9.7-13.0)
[2020-11-30 15:45] LABS: ACTIVATED PTT 53.2 SECONDS (25.2-36.5)
[2020-11-30] MEDS ORDERED: ACETAMINOPHEN 1000 MG/100 ML VIAL (NON FORMULARY) IVPB ONE (15:46)
[2020-11-30 16:02] LABS: CHLORIDE 105 mmol/L (98-107); SODIUM 137 mmol/L (136-145)
[2020-11-30 16:05] LABS: ALBUMIN 3.8 g/dl (3.4-5.0); CALCIUM 9.2 mg/dL (8.5-10.1); CO2 26 mmol/L (21-32); GLUCOSE,RANDOM 84 mg/dL (74-106)
[2020-11-30 16:08] LABS: CREATININE 1.1 mg/dL (0.55-1.3); SGOT/AST 79 U/L (15-37)
[2020-11-30 16:10] LABS: TOT PROT 7.9 g/dl (6.4-8.2)
[2020-11-30 16:11] LABS: ALK PHOS 90 U/L (45-117)
[2020-11-30] MEDS ORDERED: LACTATED RINGERS SOLUTION 1000 ML INFUS.BAG IV ONE (16:19)
[2020-11-30] MEDS ORDERED: ACETAMINOPHEN INJECTION 100 ML IVPB ONE ×2 (16:21→18:28)
[2020-11-30 16:23] LABS: ANION GAP 6 MMOL/L (8-16); SGPT/ALT 59 U/L (13-61)
[2020-11-30 16:28] LABS: POTASSIUM 6.4 mmol/L (3.5-5.1)
[2020-11-30 18:38] LABS: POTASSIUM 4.1 mmol/L (3.5-5.1)
[2020-11-30 18:40] LABS: BLOOD UREA NITROGEN 18.8 mg/dL (7-18); CALCIUM 9.1 mg/dL (8.5-10.1)
[2020-11-30 18:44] LABS: CREATININE 0.9 mg/dL (0.55-1.3)
[2020-11-30] MEDS ORDERED: ALBUTEROL SO4 HFA INHALER IH PRN (21:52)
[2020-11-30] MEDS ORDERED: ATORVASTATIN CA 10 MG TABLET (FP) PO SCH (22:00)
[2020-11-30] MEDS ORDERED: MORPHINE SULFATE 2 MG/ML VIAL IVPUSH PRN (22:41)
[2020-11-30] MEDS ORDERED: ONDANSETRON 4 MG/2 ML VIAL IVPUSH PRN (22:42)
[2020-11-30] MEDS ORDERED: ATORVASTATIN CA 10 MG TABLET (FP) ONE (23:16)
[2020-12-01] MEDS ORDERED: MORPHINE SULFATE 2 MG/ML VIAL ONE (00:12)
[2020-12-01 06:06] LABS: BASO % 0.8 % (0-2.0); EOS % 3.1 % (0-4.5); HEMATOCRIT 36.1 % (32.4-45.2); HEMOGLOBIN 12.3 GM/dL (10.7-15.3); LYMPH % 29.4 % (8-40); MCH 28.5 pg (25.7-33.7); MCHC 34.2 g/dl (32.0-36.0); MEAN CELL VOLUME 83.5 fl (80-96); MEAN PLT VOLUME 7.8 fl (7.5-11.1); MONO % 6.1 % (3.8-10.2); NEUT % 60.6 % (42.8-82.8); PLATELET COUNT 296 K/MM3 (134-434); RBC 4.32 M/mm3 (3.60-5.2); RDW 13.9 % (11.6-15.6); WHITE BLOOD COUNT 6.6 K/mm3 (4.0-10.0)
[2020-12-01 06:13] LABS: INR 3.75 (0.83-1.09); PROTHROMBIN TIME (PATIENT) 43.7 SEC (9.7-13.0)
[2020-12-01 06:31] LABS: CHLORIDE 109 mmol/L (98-107); POTASSIUM 4.4 mmol/L (3.5-5.1); SODIUM 140 mmol/L (136-145)
[2020-12-01 06:33] LABS: CALCIUM 8.6 mg/dL (8.5-10.1)
[2020-12-01 06:34] LABS: ALBUMIN 3.4 g/dl (3.4-5.0); ANION GAP 3 MMOL/L (8-16); BLOOD UREA NITROGEN 16.3 mg/dL (7-18); CO2 28 mmol/L (21-32); GLUCOSE,RANDOM 99 mg/dL (74-106)
[2020-12-01 06:37] LABS: SGOT/AST 25 U/L (15-37); SGPT/ALT 45 U/L (13-61)
[2020-12-01 06:39] LABS: TOT PROT 6.4 g/dl (6.4-8.2)
[2020-12-01 06:40] LABS: ALK PHOS 73 U/L (45-117)
[2020-12-01 06:58] LABS: CHOLESTEROL 130 mg/dL (50-200); HDL CHOLESTEROL 41 mg/dL (40-60); LDL CHOLESTEROL (ONLY SJRH) 75 mg/dL (5-100); TRIGLYCERIDES 94 mg/dL (0-150)
[2020-12-01] MEDS ORDERED: PANTOPRAZOLE 40 MG TABLET ONE (09:26)
[2020-12-01] MEDS ORDERED: PT OWN MED DRAWER 7, Y5N ONE (09:29)
[2020-12-01] MEDS ORDERED: TOPIRAMATE 25 MG TABLET ONE (09:31)
[2020-12-01] MEDS ORDERED: TOPIRAMATE 25 MG TABLET PO SCH (10:00)
[2020-12-01] MEDS ORDERED: PANTOPRAZOLE 40 MG TABLET PO SCH (10:00)
[2020-12-01] MEDS ORDERED: PATIENT'S OWN MEDICATION (NON-FORMULARY) (Pitavastatin Calcium [Livalo] 4 MG Tablet) PO SCH (10:30)
[2020-12-01 11:07] VITALS: BP 128/77; PULSE 81; TEMP 97.9
[2020-12-01] MEDS ORDERED: WARFARIN NA 2 MG TABLET PO SCH (18:00)
== END 2020-12-01 11:22 | disposition home or self-care (01) ==
LOC: JER 13:26 → JERBED 19:36
PROVIDERS: ADMIT Internal Medicine; ATTEND Family Medicine
PROC: 3E033NZ Introduction of Analgesics, Hypnotics, Sedatives into Peripheral Vein, Percutaneous Approach (ICD-10-PCS; principal; 2020-11-30)
PROC: 3E0337Z Introduction of Electrolytic and Water Balance Substance into Peripheral Vein, Percutaneous Approach (ICD-10-PCS; 2020-11-30)
DX: I25.10 Atherosclerotic heart disease of native coronary artery without angina pectoris (principal); I35.0 Nonrheumatic aortic (valve) stenosis; I47.1 Supraventricular tachycardia; E78.5 Hyperlipidemia, unspecified; G89.29 Other chronic pain; G45.9 Transient cerebral ischemic attack, unspecified; M10.9 Gout, unspecified; Z95.2 Presence of prosthetic heart valve; I48.91 Unspecified atrial fibrillation; I11.0 Hypertensive heart disease with heart failure; I50.9 Heart failure, unspecified; I25.2 Old myocardial infarction; K21.9 Gastro-esophageal reflux disease without esophagitis; F41.9 Anxiety disorder, unspecified; Z68.32 Body mass index [BMI] 32.0-32.9, adult; E66.8 Other obesity; R16.0 Hepatomegaly, not elsewhere classified; Z79.01 Long term (current) use of anticoagulants
CPT/HCPCS: 36415; 71045-TC-FY; 71275-TC; 74175-TC; 80048; 80053; 80061; 82550; 82553; 83721; 84484; 85025; 85610; 85730; 93005; 93010; 99285-25; C9803; G0378; J0131; Q9967; U0003

== ENCOUNTER 2021-02-14 10:47 | Emergency (ER) | payer BC ==
[2021-02-14 10:56] VITALS: BMI 33.5
[2021-02-14 12:51] LABS: BASO % 0.6 % (0-2.0); HEMATOCRIT 38.6 % (32.4-45.2); HEMOGLOBIN 13.4 GM/dL (10.7-15.3); LYMPH % 23.3 % (8-40); MCH 28.8 pg (25.7-33.7); MCHC 34.7 g/dl (32.0-36.0); MEAN CELL VOLUME 82.9 fl (80-96); MEAN PLT VOLUME 7.8 fl (7.5-11.1); MONO % 6.8 % (3.8-10.2); NEUT % 67.3 % (42.8-82.8); PLATELET COUNT 355 K/MM3 (134-434); RBC 4.66 M/mm3 (3.60-5.2); RDW 13.6 % (11.6-15.6); WHITE BLOOD COUNT 8.9 K/mm3 (4.0-10.0)
[2021-02-14 13:48] LABS: ALBUMIN 3.8 g/dl (3.4-5.0); ALK PHOS 94 U/L (45-117); ANION GAP 5 MMOL/L (8-16); BILIRUBIN,TOTAL 0.9 mg/dL (0.2-1); BLOOD UREA NITROGEN 12.8 mg/dL (7-18); CALCIUM 8.9 mg/dL (8.5-10.1); CHLORIDE 107 mmol/L (98-107); CO2 29 mmol/L (21-32); CREATININE 0.9 mg/dL (0.55-1.3); GLUCOSE,RANDOM 105 mg/dL (74-106); SGOT/AST 23 U/L (15-37); SGPT/ALT 42 U/L (13-61); SODIUM 141 mmol/L (136-145)
[2021-02-14] MEDS ORDERED: ACETAMINOPHEN 1000 MG/100 ML VIAL (NON FORMULARY) IVPB ONE (14:07)
[2021-02-14] MEDS ORDERED: ACETAMINOPHEN INJECTION 100 ML IVPB ONE (14:17)
[2021-02-14 15:06] VITALS: BP 120/65; PULSE 62; TEMP 97.8
== END 2021-02-14 15:06 | disposition home or self-care (01) ==
LOC: JER 10:47
PROC: 3E0333Z Introduction of Anti-inflammatory into Peripheral Vein, Percutaneous Approach (ICD-10-PCS; principal; 2021-02-14)
DX: R00.2 Palpitations (principal); R07.89 Other chest pain; R51.9 Headache, unspecified
CPT/HCPCS: 36415; 71046-TC-FY; 80053; 82550; 84443; 84484; 85025; 93005; 93010; 99285-25; J0131

== ENCOUNTER 2021-09-02 10:28 | Emergency (ER) | payer BC ==
[2021-09-02 10:37] VITALS: BP 154/85; PULSE 96; TEMP 98.6; BMI 32.3
== END 2021-09-02 11:28 | disposition home or self-care (01) ==
LOC: JER 10:28
DX: J06.9 Acute upper respiratory infection, unspecified (principal)
CPT/HCPCS: 71046-TC-FY; 87804; 87807; 99284-25; C9803; U0003; U0005

== ENCOUNTER 2021-10-08 09:23 | Emergency (ER) | payer BC ==
[2021-10-08 09:44] VITALS: BP 153/80; PULSE 104; TEMP 98.1; BMI 33.1
[2021-10-08] MEDS ORDERED: KETOROLAC TROMETHAMINE 30 MG/1 ML VIAL ONE (10:09)
== END 2021-10-08 12:22 | disposition left against medical advice (07) ==
LOC: JER 09:23
DX: R11.10 Vomiting, unspecified (principal); R19.7 Diarrhea, unspecified; R50.9 Fever, unspecified
CPT/HCPCS: 99281-25

== ENCOUNTER 2021-12-17 04:56 | Day surgery (SDC) | payer BC ==
[2021-11-21 09:24] VITALS: BMI 33.6
[2021-12-17 12:16] VITALS: TEMP 98.2
[2021-12-17 13:18] VITALS: BP 127/88; PULSE 69
== END 2021-12-17 13:12 | disposition home or self-care (01) ==
LOC: JASU-ENDO 04:56
PROVIDERS: ATTEND Internal Medicine Gastroenterology
PROC: 0DB78ZX Excision of Stomach, Pylorus, Via Natural or Artificial Opening Endoscopic, Diagnostic (ICD-10-PCS; 2021-12-17)
PROC: 0DB68ZX Excision of Stomach, Via Natural or Artificial Opening Endoscopic, Diagnostic (ICD-10-PCS; 2021-12-17)
PROC: 0DB28ZX Excision of Middle Esophagus, Via Natural or Artificial Opening Endoscopic, Diagnostic (ICD-10-PCS; 2021-12-17)
PROC: 0DB98ZX Excision of Duodenum, Via Natural or Artificial Opening Endoscopic, Diagnostic (ICD-10-PCS; principal; 2021-12-17 11:30)
DX: K29.50 Unspecified chronic gastritis without bleeding (principal); K31.7 Polyp of stomach and duodenum
CPT/HCPCS: 88305-TC; 88342-TC

== ENCOUNTER 2022-07-13 11:50 | Emergency (ER) | payer BC ==
[2022-07-13 11:54] VITALS: BP 148/86; PULSE 87; RESP 18; TEMP 98.2; BMI 33.3
[2022-07-13] MEDS ORDERED: SODIUM CHLORIDE 0.9% 500 ML INFUS.BAG IV ONE (12:29)
[2022-07-13] MEDS ORDERED: DEXAMETHASONE SOD PHOSPHATE 10 MG/1 ML VIAL IVPUSH ONE (12:30)
[2022-07-13] MEDS ORDERED: FAMOTIDINE 20 MG/50 ML IVPB 20 MG/50 ML MG IVPB ONE ×2 (12:30→12:48)
[2022-07-13] MEDS ORDERED: DEXAMETHASONE SOD PHOSPHATE 10 MG/1 ML VIAL ONE (12:48)
== END 2022-07-13 13:55 | disposition home or self-care (01) ==
LOC: JERFT 11:50 → JER 11:50 → JERFT 13:55
PROC: 3E0333Z Introduction of Anti-inflammatory into Peripheral Vein, Percutaneous Approach (ICD-10-PCS; principal; 2022-07-13)
PROC: 3E033GC Introduction of Other Therapeutic Substance into Peripheral Vein, Percutaneous Approach (ICD-10-PCS; 2022-07-13)
PROC: 3E033GC Introduction of Other Therapeutic Substance into Peripheral Vein, Percutaneous Approach (ICD-10-PCS; 2022-07-13)
DX: T78.40XA Allergy, unspecified, initial encounter (principal)
CPT/HCPCS: 99284-25; J1100

== ENCOUNTER 2023-04-22 14:43 | Emergency (ER) | payer BC ==
[2023-04-22 14:50] VITALS: BP 164/81; PULSE 86; RESP 14; TEMP 98.1; BMI 34.0
[2023-04-22] MEDS ORDERED: ONDANSETRON 4 MG/2 ML VIAL IVPUSH ONE (15:24)
[2023-04-22] MEDS ORDERED: ONDANSETRON 4 MG/2 ML VIAL ONE (16:09)
[2023-04-22] MEDS: ACETAMINOPHEN 500 MG TABLET (FP) PO ONE ×2 (16:10→16:57)
[2023-04-22 16:25] LABS: EPI CELLS 8 /uL (0-25.1); HYALINE CASTS 0 /uL (0-3.1); URINE APPEARANCE CLEAR; URINE BACTERIA 8 /uL (0-1359); URINE BILIRUBIN NEGATIVE (NEGATIVE); URINE COLOR YELLOW; URINE GLUCOSE (UA) NEGATIVE (NEGATIVE); URINE KETONE NEGATIVE (NEGATIVE); URINE LEUK ESTERASE TRACE (NEGATIVE); URINE NITRITE NEGATIVE (NEGATIVE); URINE PROTEIN NEGATIVE (NEGATIVE); URINE RBC 11 /uL (0-23.9); URINE UROBILINOGEN 0.2 mg/dL (0.2-1.0); URINE WBC 22 /uL (0-25.8)
[2023-04-22 16:59] LABS: BASO % 0.6 % (0-2.0); EOS % 1.6 % (0-4.5); HEMATOCRIT 40.9 % (32.4-45.2); HEMOGLOBIN 13.9 GM/dL (10.7-15.3); LYMPH % 24.4 % (8-40); MCH 27.5 pg (25.7-33.7); MCHC 33.9 g/dl (32.0-36.0); MEAN CELL VOLUME 81.2 fl (80-96); MEAN PLT VOLUME 7.8 fl (7.5-11.1); NEUT % 67.4 % (42.8-82.8); PLATELET COUNT 381 10^3/uL (134-434); RBC 5.04 M/mm3 (3.60-5.2); RDW 14.1 % (11.6-15.6); WHITE BLOOD COUNT 8.8 K/mm3 (4.0-10.0)
[2023-04-22] MEDS ORDERED: morphine CARPU-JECT 2 MG/1 ML DISP.SYRIN IVPUSH ONE ×2 (17:03)
[2023-04-22] MEDS ORDERED: morphine SULFATE 4 MG/ML VIAL ONE (17:16)
[2023-04-22 17:19] LABS: POTASSIUM 4.3 mmol/L (3.5-5.1)
[2023-04-22 17:21] LABS: ALBUMIN 3.9 g/dl (3.4-5.0); CALCIUM 9.4 mg/dL (8.5-10.1)
[2023-04-22 17:22] LABS: BLOOD UREA NITROGEN 12.7 mg/dL (7-18)
[2023-04-22 17:25] LABS: CREATININE 1.1 mg/dL (0.55-1.3)
[2023-04-22 17:26] LABS: BILIRUBIN,TOTAL 0.8 mg/dL (0.2-1); TOT PROT 7.1 g/dl (6.4-8.2)
== END 2023-04-22 19:30 | disposition home or self-care (01) ==
LOC: JER 14:43
PROC: 3E033GC Introduction of Other Therapeutic Substance into Peripheral Vein, Percutaneous Approach (ICD-10-PCS; principal; 2023-04-22)
PROC: 3E033GC Introduction of Other Therapeutic Substance into Peripheral Vein, Percutaneous Approach (ICD-10-PCS; 2023-04-22)
DX: R10.11 Right upper quadrant pain (principal); R11.0 Nausea; M54.9 Dorsalgia, unspecified
CPT/HCPCS: 36415; 74174-TC; 76705-TC; 80053; 81003; 83690; 85025; 87086; 93005; 93010; 99285-25; Q9967

== ENCOUNTER 2025-01-05 09:48 | Day surgery (SDC) | payer BC ==
[2024-12-29 14:28] VITALS: BMI 31.0
[2025-01-05 10:16] VITALS: RESP 18
[2025-01-05 11:24] VITALS: TEMP 97.3
[2025-01-05 11:44] VITALS: BP 118/57; PULSE 74
== END 2025-01-05 11:44 | disposition home or self-care (01) ==
LOC: FASU-ENDO 09:48
PROVIDERS: ATTEND Internal Medicine Gastroenterology
PROC: 0DBP8ZX Excision of Rectum, Via Natural or Artificial Opening Endoscopic, Diagnostic (ICD-10-PCS; principal; 2025-01-05 10:51)
DX: Z12.11 Encounter for screening for malignant neoplasm of colon (principal); K64.1 Second degree hemorrhoids; K57.30 Diverticulosis of large intestine without perforation or abscess without bleeding; K63.5 Polyp of colon
CPT/HCPCS: 88305-TC